=== PATIENT | female | born 1960 | race Caucasian/White ===

== ENCOUNTER 2017-02-13 00:40 | Day surgery (SDC) | payer OTHER ==
[~2017-02-13 00:40] MED LIST: ACEASPCAF; ALBU.083IS IH; ALBU90I INH; ALBU90OI; ALBU90OI6 INH; ALBU90OI61 INH; ALPR.5 PO; ALPR.5CR; AMLO10 PO; AMLO5; AMLO5 PO; ARIP10 PO; ASPI325 PO; Ativan1 MG PO; BUPR150ER PO; BUPR150T2 PO; BUTONI; BUTORPHANOL; CALCARB; CALCARB PO; CALCNI; CARI350; CARI350 PO; CLON.1 PO; CLON1 PO; CLON2; CLON2 PO; CLOP75 PO; CONEST.625; CONEST.625 PO; CONEST1.25; Calcarb 600 W-1 EACH PO; DIGO.125; DIGO.125 PO; DIPATR; DIPATR PO; DOCU100 PO; DULO30 PO; DULO60 PO; ENOX60I SC; ERGO400 PO; ERGO50000 PO; ESCI10; ESCI10 PO; ESCI20; ESCI20 PO; FISH1000 PO; FORTICAL; FURO20; FURO20 PO; FURO80; HYDACE10B PO; HYDACE5 PO; HYDR1TAB94 PO; HYOS.125 SL; Klonopin1 MG PO; LANS30EC; LAVAP17G PO; LEVSOD100; LEVSOD100 PO; LEVSOD50 PO; LIDO5TP TOP; LISI10; LISI20; LISI20 PO; LOVA20 PO; LOVA40 PO; Lopressor 50 mg50 MG PO; MAGOXI400 PO; MEDICAL MARIJUANA; METH10; METH10 PO; METO10; METO10 PO; METO100ER; METO100ER PO; MORP30; Macrobid 100 M100 MG PO; Miacalcin I200 IU/ML; Morphine Sulfat15 MG PO; NITR.4SL SL; Norco 5-325 Ta1 EACH PO; OMEP20ER; OMEP20ER PO; ONDA4ODT MM; OXYACE5T PO; OXYC15ER PO; OXYC5 PO; PANT40 PO; PARO30; POTA10T PO; POTCHL20ER; POTCHL20ER PO; PROACE100 PO; PROM25; PROM25 PO; PROM25S PR; PROM6.25SY PO; Phenergan25 M1 PO; Phenergan25 MG PR; Prinivil5 MG PO; RXHYDACE PO; RXPROMSY PO; SOMA350 MG PO; SUCR1; SUCR1 PO; TRAM50 PO; Toprol Xl PO; VICODIN 5-3001 EACH PO; WARF3; WARF4 PO; WARF5 PO; [UNRECOGNIZED DRUG - OTHER]; [UNRECOGNIZED DRUG - OTHER]; [UNRECOGNIZED DRUG - OTHER]; [UNRECOGNIZED DRUG - OTHER] PO; [UNRECOGNIZED DRUG - REMARK]; [UNRECOGNIZED DRUG - REMARK]
[2017-02-13 09:26] LABS: Hematocrit 30.8 % (33.0-51.0); Hemoglobin 9.3 g/dL (11.5-16.0)
[2017-02-13 09:51] LABS: Albumin, Blood 3.1 g/dL (3.4-5.0); Anion Gap 5 mmol/L (6-16); Blood Urea Nitrogen 15 mg/dL (8-24); Bun/Creatinine Ratio 19.6 (12.0-20.0); CO2, Blood 27 mmol/L (21-32); Calcium, Blood 8.2 mg/dL (8.5-10.1); Chloride, Blood 106 mmol/L (98-108); Creatinine, Blood 0.77 mg/dL (0.40-1.00); Glomerular Filtration Rate >60 (60-); Glucose, Blood 108 mg/dL (70-99); Phosphorus, Blood 2.4 mg/dL (2.5-4.9); Potassium, Blood 4.4 mmol/L (3.5-5.5); Sodium, Blood 138 mmol/L (136-145); Uric Acid, Blood 3.7 mg/dL (2.6-6.0)
[2017-11-18] MEDS ORDERED: ROXICODONE5 MG PO (13:28)
[2017-11-18] MEDS ORDERED: NICOTINE1 EAC1 TOP (13:31)
[2017-11-18] MEDS ORDERED: PROM25 PO (13:31)
[2017-11-18] MEDS ORDERED: PANT40 PO (13:32)
[2017-11-18] MEDS ORDERED: SUCR1 PO (13:33)
== END 2017-02-13 09:08 | disposition home or self-care (01) ==
LOC: ATC 00:40
PROVIDERS: Internal Medicine Nephrology
DX: Z45.2 Encounter for adjustment and management of vascular access device (principal); I73.9 Peripheral vascular disease, unspecified; G89.4 Chronic pain syndrome; F11.21 Opioid dependence, in remission; F17.210 Nicotine dependence, cigarettes, uncomplicated; J44.9 Chronic obstructive pulmonary disease, unspecified; F41.9 Anxiety disorder, unspecified; I12.9 Hypertensive chronic kidney disease with stage 1 through stage 4 chronic kidney disease, or unspecified chronic kidney disease; N18.2 Chronic kidney disease, stage 2 (mild); D75.1 Secondary polycythemia; N25.81 Secondary hyperparathyroidism of renal origin; E55.9 Vitamin D deficiency, unspecified; E78.00 Pure hypercholesterolemia, unspecified; N20.0 Calculus of kidney; R76.9 Abnormal immunological finding in serum, unspecified; R94.5 Abnormal results of liver function studies; R10.9 Unspecified abdominal pain; Z79.01 Long term (current) use of anticoagulants; Z79.899 Other long term (current) drug therapy; Z88.8 Allergy status to other drugs, medicaments and biological substances; Z88.6 Allergy status to analgesic agent
CPT/HCPCS: 36591; 80069; 82306; 84550; 85014; 85018; J1642

== ENCOUNTER 2017-03-14 00:56 | Day surgery (SDC) | payer OTHER ==
[2017-11-18] MEDS ORDERED: ROXICODONE5 MG PO (13:28)
[2017-11-18] MEDS ORDERED: NICOTINE1 EAC1 TOP (13:31)
[2017-11-18] MEDS ORDERED: PROM25 PO (13:31)
[2017-11-18] MEDS ORDERED: PANT40 PO (13:32)
[2017-11-18] MEDS ORDERED: SUCR1 PO (13:33)
== END 2017-03-14 08:50 | disposition home or self-care (01) ==
LOC: ATC 00:56
DX: K91.1 Postgastric surgery syndromes (principal); I10 Essential (primary) hypertension; I73.9 Peripheral vascular disease, unspecified; G89.4 Chronic pain syndrome; F17.210 Nicotine dependence, cigarettes, uncomplicated; J44.9 Chronic obstructive pulmonary disease, unspecified; F41.9 Anxiety disorder, unspecified
CPT/HCPCS: 96523; J1642

== ENCOUNTER 2017-04-08 00:13 | Day surgery (SDC) | payer OTHER ==
[2017-04-08 11:29] LABS: Percent Saturation 4.1 % (15.0-50.0)
[2017-04-08 11:32] LABS: Albumin, Blood 2.7 g/dL (3.4-5.0); Anion Gap 7 mmol/L (6-16); Blood Urea Nitrogen 16 mg/dL (8-24); CO2, Blood 25 mmol/L (21-32); Calcium, Blood 8.2 mg/dL (8.5-10.1); Chloride, Blood 111 mmol/L (98-108); Creatinine, Blood 0.62 mg/dL (0.40-1.00); Glomerular Filtration Rate >60 (60-); Glucose, Blood 103 mg/dL (70-99); Phosphorus, Blood 2.4 mg/dL (2.5-4.9); Potassium, Blood 4.3 mmol/L (3.5-5.5); Sodium, Blood 143 mmol/L (136-145)
[2017-04-08 11:51] LABS: Thyroid Stimulating Hormone 0.714 uIU/mL (0.360-4.800)
[2017-04-15 07:54] LABS: Metanephrine, Free <0.35 nmol/L (0.0-0.49); Normetanephrine, Free <0.55 nmol/L (0.00-0.89)
[2017-11-18] MEDS ORDERED: ROXICODONE5 MG PO (13:28)
[2017-11-18] MEDS ORDERED: NICOTINE1 EAC1 TOP (13:31)
[2017-11-18] MEDS ORDERED: PROM25 PO (13:31)
[2017-11-18] MEDS ORDERED: PANT40 PO (13:32)
[2017-11-18] MEDS ORDERED: SUCR1 PO (13:33)
== END 2017-04-08 10:43 | disposition home or self-care (01) ==
LOC: ATC 00:13
PROVIDERS: Internal Medicine Nephrology
DX: I12.9 Hypertensive chronic kidney disease with stage 1 through stage 4 chronic kidney disease, or unspecified chronic kidney disease (principal); N18.3 Chronic kidney disease, stage 3 (moderate); D63.1 Anemia in chronic kidney disease; N25.81 Secondary hyperparathyroidism of renal origin; R76.9 Abnormal immunological finding in serum, unspecified; R94.5 Abnormal results of liver function studies; D51.8 Other vitamin B12 deficiency anemias; D52.8 Other folate deficiency anemias; K91.1 Postgastric surgery syndromes; I73.9 Peripheral vascular disease, unspecified; F17.210 Nicotine dependence, cigarettes, uncomplicated; E78.5 Hyperlipidemia, unspecified
CPT/HCPCS: 36591; 80069; 82088; 82533; 82607; 82728; 82746; 83540; 83550; 83835; 84244; 84443; 85018; J1642

== ENCOUNTER 2017-04-14 09:38 | Day surgery (SDC) | payer OTHER ==
[2017-04-14 11:43] LABS: Hematocrit 24.7 % (33.0-51.0); Hemoglobin 7.1 g/dL (11.5-16.0)
[2017-11-18] MEDS ORDERED: ROXICODONE5 MG PO (13:28)
[2017-11-18] MEDS ORDERED: PROM25 PO (13:31)
[2017-11-18] MEDS ORDERED: NICOTINE1 EAC1 TOP (13:31)
[2017-11-18] MEDS ORDERED: PANT40 PO (13:32)
[2017-11-18] MEDS ORDERED: SUCR1 PO (13:33)
== END 2017-04-14 16:47 | disposition home or self-care (01) ==
LOC: ATC 09:38
PROVIDERS: Internal Medicine Nephrology
DX: I12.9 Hypertensive chronic kidney disease with stage 1 through stage 4 chronic kidney disease, or unspecified chronic kidney disease (principal); N18.2 Chronic kidney disease, stage 2 (mild); D63.1 Anemia in chronic kidney disease; E78.00 Pure hypercholesterolemia, unspecified; E55.9 Vitamin D deficiency, unspecified
CPT/HCPCS: 36430; 36591; 85014; 85018; 86850; 86870; 86900; 86901; 86902; 86905; 86922; 96374; J1642; J7030; P9016

== ENCOUNTER 2017-04-24 08:39 | Day surgery (SDC) | payer OTHER ==
[2017-11-18] MEDS ORDERED: ROXICODONE5 MG PO (13:28)
[2017-11-18] MEDS ORDERED: NICOTINE1 EAC1 TOP (13:31)
[2017-11-18] MEDS ORDERED: PROM25 PO (13:31)
[2017-11-18] MEDS ORDERED: PANT40 PO (13:32)
[2017-11-18] MEDS ORDERED: SUCR1 PO (13:33)
== END 2017-04-24 09:15 | disposition home or self-care (01) ==
LOC: ATC 08:39
DX: I12.9 Hypertensive chronic kidney disease with stage 1 through stage 4 chronic kidney disease, or unspecified chronic kidney disease (principal); N18.2 Chronic kidney disease, stage 2 (mild); D63.1 Anemia in chronic kidney disease; F17.200 Nicotine dependence, unspecified, uncomplicated; R03.1 Nonspecific low blood-pressure reading; E78.00 Pure hypercholesterolemia, unspecified; E55.9 Vitamin D deficiency, unspecified; M81.0 Age-related osteoporosis without current pathological fracture
CPT/HCPCS: 36591; 85018; J1642

== ENCOUNTER 2017-07-16 00:16 | Day surgery (SDC) | payer OTHER ==
[~2017-07-16 00:16] MED LIST changes: +DULO60
[2017-07-16 10:39] LABS: Albumin, Blood 3.4 g/dL (3.4-5.0); Anion Gap 7 mmol/L (6-16); Blood Urea Nitrogen 19 mg/dL (8-24); Bun/Creatinine Ratio 30.4 (12.0-20.0); CO2, Blood 25 mmol/L (21-32); Calcium, Blood 8.7 mg/dL (8.5-10.1); Chloride, Blood 109 mmol/L (98-108); Creatinine, Blood 0.63 mg/dL (0.40-1.00); Glomerular Filtration Rate >60 (60-); Glucose, Blood 103 mg/dL (70-99); Phosphorus, Blood 2.6 mg/dL (2.5-4.9); Potassium, Blood 4.4 mmol/L (3.5-5.5); Sodium, Blood 141 mmol/L (136-145)
[2017-07-16 10:43] LABS: Percent Saturation 42.3 % (15.0-50.0)
== END 2017-07-16 09:55 | disposition home or self-care (01) ==
LOC: ATC 00:16
PROVIDERS: Internal Medicine Nephrology
DX: I12.9 Hypertensive chronic kidney disease with stage 1 through stage 4 chronic kidney disease, or unspecified chronic kidney disease (principal); N18.2 Chronic kidney disease, stage 2 (mild); D63.1 Anemia in chronic kidney disease; F17.200 Nicotine dependence, unspecified, uncomplicated; R03.1 Nonspecific low blood-pressure reading; E78.00 Pure hypercholesterolemia, unspecified; E55.9 Vitamin D deficiency, unspecified
CPT/HCPCS: 36591; 80069; 82728; 83540; 83550; 85018; J1642

== ENCOUNTER 2017-08-12 00:24 | Day surgery (SDC) | payer OTHER ==
[2017-08-12 09:31] LABS: BASOPHILS ABSOLUTE AUTO 0.01 K/mm3 (0.00-0.23); BASOPHILS PERCENT AUTO 0 % (0-2); EOSINOPHILS ABSOLUTE AUTO 0.16 K/mm3 (0.00-0.68); EOSINOPHILS PERCENT AUTO 2 % (0-6); Hematocrit 33.3 % (33.0-51.0); Hemoglobin 10.9 g/dL (11.5-16.0); IMMATURE GRAN ABSOLUTE AUTO 0.03 K/mm3 (0.00-0.10); IMMATURE GRAN PERCENT AUTO 0 % (0-1); LYMPHOCYTES ABSOLUTE AUTO 1.67 K/mm3 (0.84-5.20); LYMPHOCYTES PERCENT AUTO 23 % (21-46); MONOCYTES ABSOLUTE AUTO 0.37 K/mm3 (0.16-1.47); MONOCYTES PERCENT AUTO 5 % (4-13); Mean Corpuscular HGB 31.6 pg (26.0-34.0); Mean Corpuscular HGB Conc 32.7 g/dL (31.5-36.5); Mean Corpuscular Volume 97 fL (80-100); Mean Platelet Volume 9.3 fL (9.1-12.4); NEUTROPHILS ABSOLUTE AUTO 5.06 K/mm3 (1.96-9.15); NEUTROPHILS PERCENT AUTO 69 % (41-73); Platelet Count 234 K/mm3 (150-400); RDW Coefficient Variation 16.6 % (11.7-14.2); RDW Standard Deviation 58.4 fL (35.1-46.3); Red Blood Cell Count 3.45 M/mm3 (3.80-5.20)
[2017-08-12 10:06] LABS: Percent Saturation 18.8 % (15.0-50.0)
== END 2017-08-12 09:00 | disposition home or self-care (01) ==
LOC: ATC 00:24
PROVIDERS: Internal Medicine Hematology & Oncology
DX: D50.9 Iron deficiency anemia, unspecified (principal); I12.9 Hypertensive chronic kidney disease with stage 1 through stage 4 chronic kidney disease, or unspecified chronic kidney disease; N18.2 Chronic kidney disease, stage 2 (mild); D63.1 Anemia in chronic kidney disease; R03.1 Nonspecific low blood-pressure reading; E55.9 Vitamin D deficiency, unspecified; N20.0 Calculus of kidney; E87.3 Alkalosis; N28.1 Cyst of kidney, acquired; F17.210 Nicotine dependence, cigarettes, uncomplicated
CPT/HCPCS: 82728; 83540; 83550; 85025; J1642

== ENCOUNTER 2017-08-19 00:17 | Day surgery (SDC) | payer OTHER | END 2017-08-19 09:05 | disposition home or self-care (01) | LOC: ATC 00:17 | DX: D50.9 Iron deficiency anemia, unspecified (principal); K91.2 Postsurgical malabsorption, not elsewhere classified; F17.210 Nicotine dependence, cigarettes, uncomplicated; I10 Essential (primary) hypertension; E78.5 Hyperlipidemia, unspecified; E03.9 Hypothyroidism, unspecified; Z85.6 Personal history of leukemia | CPT/HCPCS: 36591; 82607; 82746; J1642 ==

== ENCOUNTER 2017-09-18 00:11 | Day surgery (SDC) | payer OTHER | END 2017-09-18 09:02 | disposition home or self-care (01) | LOC: ATC 00:11 | DX: D50.9 Iron deficiency anemia, unspecified (principal); K91.2 Postsurgical malabsorption, not elsewhere classified; F17.210 Nicotine dependence, cigarettes, uncomplicated | CPT/HCPCS: 96523; J1642 ==

== ENCOUNTER 2017-10-20 00:05 | Day surgery (SDC) | payer OTHER ==
[2017-10-20 09:33] LABS: Albumin, Blood 3.1 g/dL (3.4-5.0); Anion Gap 11 mmol/L (6-16); Blood Urea Nitrogen 20 mg/dL (8-24); Bun/Creatinine Ratio 25.5 (12.0-20.0); CO2, Blood 19 mmol/L (21-32); Calcium, Blood 8.1 mg/dL (8.5-10.1); Chloride, Blood 110 mmol/L (98-108); Creatinine, Blood 0.78 mg/dL (0.40-1.00); Glomerular Filtration Rate >60 (60-); Glucose, Blood 106 mg/dL (70-99); Phosphorus, Blood 2.3 mg/dL (2.5-4.9); Potassium, Blood 4.6 mmol/L (3.5-5.5); Sodium, Blood 140 mmol/L (136-145)
== END 2017-10-20 08:52 | disposition home or self-care (01) ==
LOC: ATC 00:05
PROVIDERS: Internal Medicine Nephrology
DX: D50.9 Iron deficiency anemia, unspecified (principal); K91.2 Postsurgical malabsorption, not elsewhere classified; N18.2 Chronic kidney disease, stage 2 (mild); D63.1 Anemia in chronic kidney disease
CPT/HCPCS: 36591; 80069; 85018; J1642

== ENCOUNTER 2017-10-26 10:22 | Emergency (ER) | payer OTHER ==
[~2017-10-26] VITALS: Ht 157.5 cm; Wt 45.0 kg
[2017-10-26 12:17] LABS: BASOPHILS ABSOLUTE AUTO 0.02 K/mm3 (0.00-0.23); BASOPHILS PERCENT AUTO 0 % (0-2); EOSINOPHILS ABSOLUTE AUTO 0.14 K/mm3 (0.00-0.68); EOSINOPHILS PERCENT AUTO 2 % (0-6); Hematocrit 28.8 % (33.0-51.0); Hemoglobin 9.6 g/dL (11.5-16.0); IMMATURE GRAN ABSOLUTE AUTO 0.02 K/mm3 (0.00-0.10); IMMATURE GRAN PERCENT AUTO 0 % (0-1); LYMPHOCYTES ABSOLUTE AUTO 1.95 K/mm3 (0.84-5.20); LYMPHOCYTES PERCENT AUTO 30 % (21-46); MONOCYTES ABSOLUTE AUTO 0.49 K/mm3 (0.16-1.47); MONOCYTES PERCENT AUTO 7 % (4-13); Mean Corpuscular HGB 32.5 pg (26.0-34.0); Mean Corpuscular HGB Conc 33.3 g/dL (31.5-36.5); Mean Corpuscular Volume 98 fL (80-100); Mean Platelet Volume 8.9 fL (9.1-12.4); NEUTROPHILS PERCENT AUTO 60 % (41-73); Platelet Count 262 K/mm3 (150-400); RDW Coefficient Variation 12.6 % (11.7-14.2); RDW Standard Deviation 45.4 fL (35.1-46.3); Red Blood Cell Count 2.95 M/mm3 (3.80-5.20); White Blood Cell Count 6.62 K/mm3 (4.00-11.30)
[2017-10-26 12:31] LABS: Alanine Aminotransfer (ALT/SGP 19 U/L (12-78); Albumin, Blood 2.7 g/dL (3.4-5.0); Albumin/Globulin Ratio 0.8 (0.8-1.8); Alk Phos 53 U/L (50-136); Anion Gap 7 mmol/L (6-16); Aspartate Aminotrans (AST/SGOT 18 U/L (12-37); Bilirubin, Total 0.2 mg/dL (0.1-1.0); Blood Urea Nitrogen 20 mg/dL (8-24); Bun/Creatinine Ratio 25.8 (12.0-20.0); CO2, Blood 26 mmol/L (21-32); Calcium, Blood 8.3 mg/dL (8.5-10.1); Chloride, Blood 108 mmol/L (98-108); Creatinine, Blood 0.78 mg/dL (0.40-1.00); Globulin, Blood 3.3 g/dL (2.2-4.0); Glomerular Filtration Rate >60 (60-); Glucose, Blood 104 mg/dL (70-99); Potassium, Blood 4.3 mmol/L (3.5-5.5); Sodium, Blood 141 mmol/L (136-145)
[2017-10-26 12:32] LABS: International Normalized Ratio 3.02; Prothrombin Time Results 29.2 Sec (9.7-11.5)
[2017-10-26] MEDS ORDERED: Zofran4 MG PO (14:27)
== END 2017-10-26 14:57 | disposition home or self-care (01) ==
LOC: ER 10:22
PROVIDERS: Emergency Medicine
DX: K27.9 Peptic ulcer, site unspecified, unspecified as acute or chronic, without hemorrhage or perforation (principal); R11.2 Nausea with vomiting, unspecified; F12.90 Cannabis use, unspecified, uncomplicated; Z88.8 Allergy status to other drugs, medicaments and biological substances; Z88.6 Allergy status to analgesic agent; Z79.01 Long term (current) use of anticoagulants; Z79.899 Other long term (current) drug therapy; I10 Essential (primary) hypertension; J44.9 Chronic obstructive pulmonary disease, unspecified; E78.00 Pure hypercholesterolemia, unspecified; D64.9 Anemia, unspecified; F32.9 Major depressive disorder, single episode, unspecified; F41.9 Anxiety disorder, unspecified; F43.10 Post-traumatic stress disorder, unspecified; Z90.49 Acquired absence of other specified parts of digestive tract; F17.210 Nicotine dependence, cigarettes, uncomplicated
CPT/HCPCS: 80053; 85025; 85610; 93005; 93010; 96361; 96374; 96375; 99284-25; C9113; J1200; J1642; J2405; J2550; J7030

== ENCOUNTER 2017-11-11 08:11 | Day surgery (SDC) | payer OTHER ==
[~2017-11-11 08:11] MED LIST changes: -DULO60; +Zofran4 MG PO
[2017-11-11 09:16] LABS: International Normalized Ratio 0.97
[2017-11-18] MEDS ORDERED: ROXICODONE5 MG PO (13:28)
[2017-11-18] MEDS ORDERED: PROM25 PO (13:31)
[2017-11-18] MEDS ORDERED: NICOTINE1 EAC1 TOP (13:31)
[2017-11-18] MEDS ORDERED: PANT40 PO (13:32)
[2017-11-18] MEDS ORDERED: SUCR1 PO (13:33)
== END 2017-11-11 22:41 | disposition home or self-care (01) ==
LOC: ATC 08:11
PROVIDERS: Internal Medicine Gastroenterology
DX: D50.9 Iron deficiency anemia, unspecified (principal); K91.2 Postsurgical malabsorption, not elsewhere classified; Z79.01 Long term (current) use of anticoagulants; Z79.02 Long term (current) use of antithrombotics/antiplatelets
CPT/HCPCS: 36591; 85610; J1642

== ENCOUNTER 2017-11-11 08:59 | Day surgery (SDC) | payer OTHER ==
[~2017-11-11] VITALS: Ht 157.5 cm; Wt 43.1 kg
[~2017-11-11 08:59] MED LIST changes: +DULO60
== END 2017-11-11 12:05 | disposition home or self-care (01) ==
LOC: ORSCSDS 08:59
PROVIDERS: Internal Medicine Gastroenterology
PROC: 0DJ08ZZ Inspection of Upper Intestinal Tract, Via Natural or Artificial Opening Endoscopic (ICD-10-PCS; principal; 2017-11-11 11:15)
DX: D50.9 Iron deficiency anemia, unspecified (principal); Z87.11 Personal history of peptic ulcer disease; R14.0 Abdominal distension (gaseous); E78.5 Hyperlipidemia, unspecified; F31.9 Bipolar disorder, unspecified; F17.210 Nicotine dependence, cigarettes, uncomplicated; Z79.01 Long term (current) use of anticoagulants; Z79.899 Other long term (current) drug therapy
CPT/HCPCS: J1642; J7120

== ENCOUNTER → 2018-01-29 | Outpatient (CLI) | payer OTHER ==
[~2018-01-29] MED LIST changes: -DULO60; +NICOTINE1 EAC1 TOP; +ROXICODONE5 MG PO
[2018-02-06 08:47] LABS: Result SEE LABOUT RESULTS
== END | disposition home or self-care (01) ==
LOC: EDSTATUS 01-28 13:30 → LAB FUT 01-28 13:30 → LAB SHORT 09:30 → LAB SRC 09:30
PROVIDERS: Physician Assistant
DX: F17.200 Nicotine dependence, unspecified, uncomplicated (principal); I42.9 Cardiomyopathy, unspecified
CPT/HCPCS: G0480

== ENCOUNTER 2018-02-12 00:06 | Day surgery (SDC) | payer OTHER ==
[~2018-02-12 00:06] MED LIST changes: +CALCIUM 600 +1 EAC2 PO; +Calcitonin-Sal3.7 ML NS; +FISH OIL 1,0001 EAC1 PO; +LEVO-T50 MCG PO; +MAGOXI400; +PROAIR RESPICL90 MCG INH; +Reclast 55 MG/100 M IV; +Slow Release I160 MG PO
[2018-02-12 09:03] LABS: BASOPHILS ABSOLUTE AUTO 0.02 K/mm3 (0.00-0.23); BASOPHILS PERCENT AUTO 0 % (0-2); EOSINOPHILS PERCENT AUTO 2 % (0-6); Hematocrit 36.3 % (33.0-51.0); Hemoglobin 11.5 g/dL (11.5-16.0); IMMATURE GRAN ABSOLUTE AUTO 0.01 K/mm3 (0.00-0.10); IMMATURE GRAN PERCENT AUTO 0 % (0-1); LYMPHOCYTES ABSOLUTE AUTO 1.13 K/mm3 (0.84-5.20); LYMPHOCYTES PERCENT AUTO 24 % (21-46); MONOCYTES ABSOLUTE AUTO 0.42 K/mm3 (0.16-1.47); MONOCYTES PERCENT AUTO 9 % (4-13); Mean Corpuscular HGB 31.6 pg (26.0-34.0); Mean Corpuscular HGB Conc 31.7 g/dL (31.5-36.5); Mean Corpuscular Volume 100 fL (80-100); Mean Platelet Volume 8.7 fL (9.1-12.4); NEUTROPHILS PERCENT AUTO 64 % (41-73); Platelet Count 232 K/mm3 (150-400); RDW Coefficient Variation 17.7 % (11.7-14.2); RDW Standard Deviation 66.4 fL (35.1-46.3); Red Blood Cell Count 3.64 M/mm3 (3.80-5.20); White Blood Cell Count 4.68 K/mm3 (4.00-11.30)
[2018-02-12 09:26] LABS: Percent Saturation 29.3 % (15.0-50.0)
== END 2018-02-12 08:42 | disposition home or self-care (01) ==
LOC: ATC 00:06
PROVIDERS: Internal Medicine Hematology & Oncology
DX: D50.9 Iron deficiency anemia, unspecified (principal); N18.2 Chronic kidney disease, stage 2 (mild); D63.1 Anemia in chronic kidney disease; K91.0 Vomiting following gastrointestinal surgery; K25.9 Gastric ulcer, unspecified as acute or chronic, without hemorrhage or perforation
CPT/HCPCS: 36591; 82728; 83540; 83550; 85025; J1642

== ENCOUNTER 2018-02-17 10:08 | Day surgery (SDC) | payer OTHER ==
[~2018-02-17] VITALS: Ht 157.5 cm; Wt 45.2 kg
[2018-02-17] MEDS ORDERED: PANT40 PO (11:06)
[2018-02-17] MEDS ORDERED: OXYC5 PO (11:08)
--- NOTE | 2018-02-17 12:17 | NUR ---
02/17/18 1217 Elizabeth Pearson PROCEDURE STOPPED D/T FOOD IN THE STOMACH PER DR CONLEY
== END 2018-02-17 12:39 | disposition home or self-care (01) ==
LOC: ORSCSDS 10:08
PROVIDERS: Internal Medicine Gastroenterology
PROC: 0DJ08ZZ Inspection of Upper Intestinal Tract, Via Natural or Artificial Opening Endoscopic (ICD-10-PCS; principal; 2018-02-17 11:30)
DX: Z87.11 Personal history of peptic ulcer disease (principal); E78.5 Hyperlipidemia, unspecified; F31.9 Bipolar disorder, unspecified; F17.210 Nicotine dependence, cigarettes, uncomplicated; Z79.01 Long term (current) use of anticoagulants; Z79.899 Other long term (current) drug therapy
CPT/HCPCS: J7120

== ENCOUNTER 2018-02-26 08:01 | Observation (INO) | payer OTHER ==
[~2018-02-26] VITALS: Ht 157.5 cm; Wt 48.1 kg
[2018-02-26] MEDS ORDERED: ALPR.5 PO (08:37)
[2018-02-26 08:54] LABS: BASOPHILS ABSOLUTE AUTO 0.02 K/mm3 (0.00-0.23); BASOPHILS PERCENT AUTO 0 % (0-2); EOSINOPHILS ABSOLUTE AUTO 0.08 K/mm3 (0.00-0.68); EOSINOPHILS PERCENT AUTO 1 % (0-6); Hematocrit 37.9 % (33.0-51.0); Hemoglobin 11.7 g/dL (11.5-16.0); IMMATURE GRAN ABSOLUTE AUTO 0.04 K/mm3 (0.00-0.10); IMMATURE GRAN PERCENT AUTO 1 % (0-1); LYMPHOCYTES ABSOLUTE AUTO 0.75 K/mm3 (0.84-5.20); LYMPHOCYTES PERCENT AUTO 9 % (21-46); MONOCYTES ABSOLUTE AUTO 0.56 K/mm3 (0.16-1.47); MONOCYTES PERCENT AUTO 7 % (4-13); Mean Corpuscular HGB 30.6 pg (26.0-34.0); Mean Corpuscular HGB Conc 30.9 g/dL (31.5-36.5); Mean Corpuscular Volume 99 fL (80-100); NEUTROPHILS ABSOLUTE AUTO 6.98 K/mm3 (1.96-9.15); NEUTROPHILS PERCENT AUTO 83 % (41-73); Platelet Count 176 K/mm3 (150-400); RDW Coefficient Variation 16.1 % (11.7-14.2); RDW Standard Deviation 58.9 fL (35.1-46.3); Red Blood Cell Count 3.82 M/mm3 (3.80-5.20); White Blood Cell Count 8.43 K/mm3 (4.00-11.30)
[2018-02-26 09:09] LABS: International Normalized Ratio 0.97
[2018-02-26 09:24] LABS: Alanine Aminotransfer (ALT/SGP 8 U/L (12-78); Albumin, Blood 2.8 g/dL (3.4-5.0); Albumin/Globulin Ratio 0.7 (0.8-1.8); Alk Phos 72 U/L (50-136); Anion Gap 5 mmol/L (6-16); Aspartate Aminotrans (AST/SGOT 12 U/L (12-37); Bilirubin, Total 0.3 mg/dL (0.1-1.0); Blood Urea Nitrogen 12 mg/dL (8-24); Bun/Creatinine Ratio 16.7 (12.0-20.0); CO2, Blood 27 mmol/L (21-32); Calcium, Blood 8.1 mg/dL (8.5-10.1); Chloride, Blood 104 mmol/L (98-108); Creatinine, Blood 0.72 mg/dL (0.40-1.00); Globulin, Blood 3.9 g/dL (2.2-4.0); Glomerular Filtration Rate >60 (60-); Glucose, Blood 137 mg/dL (70-99); Potassium, Blood 4.5 mmol/L (3.5-5.5); Sodium, Blood 136 mmol/L (136-145); Total Protein, Blood 6.7 g/dL (6.4-8.2)
[2018-02-26] MEDS ORDERED: WARF5 PO (15:02)
[2018-02-26] MEDS ORDERED: Percocet 5-3251 EACH PO (15:03)
--- NOTE | 2018-02-26 17:44 | NUR ---
NURSING PCU DAYSHIFT SUMMARY: Assumed care of pt at approx 1415. Arrived from via bed accompanied by staff x2 s/p LLE claudication repair. A/O, fairly cooperative w/care though needs reminders regarding recovery restrictions. R groin site which has no noted bleed, clear dressing CDI. Tele in place, NSR, no c/o CP/pressure, SBP 80's, no noted edema. L/S cta t/o, O2 sat stable on RA, denies dyspnea. Chronic abd pain per pt, significant nausea w/frequent episodes of dry heaving, BT+. PIV x1, s/l. Pt has been educated several times regarding importance of remaining flat and bracing R groin site when straining, verbalizes understanding. Small lump (1inx0.5in) noted below insertion site, unchanged, assessed by CN. Pt denies any current questions/needs, call light in reach, cont to monitor until rpt is given to NOC RN.
--- NOTE | 2018-02-26 22:28 | NUR ---
RIGHT GROIN SITE: SMALL LUMP NOTED UNDER SKIN AT RIGHT GROIN SITE. ASSESSED WITH OFF GOING RN SHABBIR. AT APPROX 2100 IT WAS NOTED THAT THE SMALL LUMP APPEARED TO GROW SLIGHTLY. MANUAL CONTINUOUS PRESSURE WAS HELD AT GROIN SITE FOR 15 MINUTES BY RN. NO FURTHER LUMP FORMATION NOTED AT THIS TIME. CHARGE NURSE MASTER MARTINEZ RN AWARE. WILL CONTINUE TO MONITOR.
--- NOTE | 2018-02-27 03:07 | NUR ---
UPDATE: AT APPROX 0200 PATIENT HAD SEVERAL EPISODES OF DRY HEAVING. LUMP AT RIGHT GROIN SITE APPEARED TO HAVE GROWN SLIGHTLY SINCE BEFORE THE DRY HEAVING. AN ADDITIONAL 15 MINUTES OF MANUAL CONTINUOUS PRESSURE WAS HELD OVER SITE BY RN. NO FURTHER CHANGES NOTED SINCE. PATIENT EDUCATED ON IMPORTANCE OF HOLDING PRESSURE OVER SITE WHILE DRY HEAVING. PATIENT VERBALIZES UNDERSTANDING. WILL CONTINUE TO MONITOR.
[2018-02-27 03:37] LABS: Hematocrit 33.9 % (33.0-51.0); Hemoglobin 10.4 g/dL (11.5-16.0); Mean Corpuscular HGB Conc 30.7 g/dL (31.5-36.5); Mean Corpuscular Volume 101 fL (80-100); Mean Platelet Volume 9.2 fL (9.1-12.4); Platelet Count 168 K/mm3 (150-400); RDW Coefficient Variation 16.4 % (11.7-14.2); RDW Standard Deviation 60.9 fL (35.1-46.3); Red Blood Cell Count 3.35 M/mm3 (3.80-5.20); White Blood Cell Count 5.73 K/mm3 (4.00-11.30)
[2018-02-27 03:52] LABS: International Normalized Ratio 1.08; Prothrombin Time Results 11.4 Sec (9.7-11.5)
[2018-02-27 03:55] LABS: Anion Gap 5 mmol/L (6-16); Blood Urea Nitrogen 12 mg/dL (8-24); Bun/Creatinine Ratio 20.5 (12.0-20.0); CO2, Blood 24 mmol/L (21-32); Calcium, Blood 7.1 mg/dL (8.5-10.1); Chloride, Blood 110 mmol/L (98-108); Creatinine, Blood 0.58 mg/dL (0.40-1.00); Glomerular Filtration Rate >60 (60-); Glucose, Blood 84 mg/dL (70-99); Magnesium, Blood 2.1 mg/dL (1.6-2.4); Potassium, Blood 4.3 mmol/L (3.5-5.5); Sodium, Blood 139 mmol/L (136-145)
--- NOTE | 2018-02-27 07:37 | NUR ---
SHIFT SUMMARY PATIENT PLEASENT AND COOPERATIVE THROUGHOUT THE NIGHT. LUMP AT GROIN SITE STILL PRESENT BUT NO FURTHER CHANGES NOTED THROUGHOUT THIS SHIFT. ASSESSED GROIN SITE WITH ONCOMING RN. PATIENT MEDICATED FOR PAIN AND NAUSEA PER EMAR. FLUIDS RUNNING PER ORDERS. REPORT GIVEN TO ONCOMING RN.
--- NOTE | 2018-02-27 11:57 | NUR ---
Assumed Care: Assume care of pt at approx 0700. VSS. In no apparent sign of distress. Pt is A&Ox4. Calls appropriately. Repositions self. See shift assessment for detailed assessment. Dr. Chengtrate at bedside this AM and plan is to DC pt if cleared by Dr. Wright. Called Dr. Wright and was told that he confirms it is appropriate to send pt home and to have pt follow-up in his office in 1-3 weeks. PT also working with pt and will write their recommendations. Pt currently resting in bed with call light within reach. Denies any further questions, complaints or requests at this time. Will continue to monitor.
[2018-02-27] MEDS ORDERED: ACET325 PO (12:39)
[2018-02-27] MEDS ORDERED: BISA10S PR (12:40)
[2018-02-27] MEDS ORDERED: DOCU100 PO (12:40)
[2018-02-27] MEDS ORDERED: GABA300 PO (12:41)
--- NOTE | 2018-02-27 14:06 | NUR ---
Discharge Pt dc at 1404. Provided with prescriptions, dc education, and all personal belongings. New prescriptions are offered OTC and pt states that she would prefer to pick them up OTC. Provided with written prescription for percocet. Pt states that she does not want to take the gabapentin and does not want for it to be called in to be filled at her pharmacy. VSS. In no apparent sign of distress. Pt independent and walking around in room - dressed herself w/out any issues. Pt not experiencing any nausea at time of DC. Denies any further questions, complaints or requests at time of DC. Pt also provided with femoral access site care information.
== END 2018-02-27 14:19 | disposition home or self-care (01) ==
LOC: ER 08:01 → PCU 08:02 → MEDS 08:02 → PCU 13:15
PROVIDERS: Emergency Medicine; ADMIT Family Medicine
DX: I73.9 Peripheral vascular disease, unspecified (principal); I99.8 Other disorder of circulatory system; E03.9 Hypothyroidism, unspecified; F12.10 Cannabis abuse, uncomplicated; F41.9 Anxiety disorder, unspecified; F32.9 Major depressive disorder, single episode, unspecified; I10 Essential (primary) hypertension; R11.2 Nausea with vomiting, unspecified; J44.9 Chronic obstructive pulmonary disease, unspecified; Z87.891 Personal history of nicotine dependence; Z88.1 Allergy status to other antibiotic agents; Z88.8 Allergy status to other drugs, medicaments and biological substances; Z79.02 Long term (current) use of antithrombotics/antiplatelets; Z79.01 Long term (current) use of anticoagulants; Z79.899 Other long term (current) drug therapy
CPT/HCPCS: 36415; 37220; 75625; 75716; 75774; 76937; 80048; 80053; 83735; 84443; 85025; 85027; 85610; 85730; 93005; 93010; 93926; 96361; 96372; 96374; 96375; 96376; 97162; 97530; 99152; 99153; 99285-25; C1760; C1769; C1887; C1894; C2623; G0378; J1170; J1200; J1644; J1650; J2250; J2405; J2550; J3010; J7030; J7040; P9612; Q9967

== ENCOUNTER 2018-03-12 08:18 | Day surgery (SDC) | payer OTHER ==
[~2018-03-12] VITALS: Ht 157.5 cm; Wt 44.5 kg
[~2018-03-12 08:18] MED LIST changes: +ACET325 PO; +BISA10S PR; +GABA300 PO; +Percocet 5-3251 EACH PO
[2018-03-12] MEDS ORDERED: MAGOXI400 (09:33)
[2018-03-12] MEDS ORDERED: Vitamin D400 UNI1 PO (09:33)
[2018-03-12] MEDS ORDERED: FISH OIL 1,0001 EAC1 PO (09:34)
--- NOTE | 2018-03-12 09:54 | NUR ---
03/12/18 0954 Bolivar,May PT MEDIPORT ACCESS ONE ATTEMPT AND ONE SUCCESSFULL. PT TOLERATED WELL.
--- NOTE | 2018-03-12 10:59 | NUR ---
03/12/18 1059 Rohit Mcgee LATE ENTRY-1020 RN FLUSHED MEDIPORT WITH 5CC NORMAL SALINE AND THEN HEPARIN 5ML 100CC/ML NEEDLE OUT SITE GOOD. LARGE BANDAID APPLIED.
== END 2018-03-12 10:47 | disposition home or self-care (01) ==
LOC: ORSCSDS 08:18
PROVIDERS: Internal Medicine Gastroenterology
PROC: 0DJ08ZZ Inspection of Upper Intestinal Tract, Via Natural or Artificial Opening Endoscopic (ICD-10-PCS; principal; 2018-03-12 09:45)
DX: K25.9 Gastric ulcer, unspecified as acute or chronic, without hemorrhage or perforation (principal); E78.5 Hyperlipidemia, unspecified; K31.84 Gastroparesis; D64.9 Anemia, unspecified; I10 Essential (primary) hypertension; E03.9 Hypothyroidism, unspecified; Z87.891 Personal history of nicotine dependence; Z79.01 Long term (current) use of anticoagulants; Z79.899 Other long term (current) drug therapy
CPT/HCPCS: J1642; J7120

== ENCOUNTER 2018-05-05 10:51 | Inpatient (IN) | payer OTHER ==
[~2018-05-05] VITALS: Ht 157.5 cm; Wt 47.2 kg
[~2018-05-05 10:51] MED LIST changes: +PANT20 PO; -PROAIR RESPICL90 MCG INH; +Vitamin D400 UNI1 PO; +WARF10 PO
[2018-05-05 12:31] LABS: BASOPHILS ABSOLUTE AUTO 0.03 K/mm3 (0.00-0.23); BASOPHILS PERCENT AUTO 1 % (0-2); EOSINOPHILS ABSOLUTE AUTO 0.43 K/mm3 (0.00-0.68); EOSINOPHILS PERCENT AUTO 7 % (0-6); Hematocrit 37.3 % (33.0-51.0); Hemoglobin 11.9 g/dL (11.5-16.0); IMMATURE GRAN ABSOLUTE AUTO 0.02 K/mm3 (0.00-0.10); IMMATURE GRAN PERCENT AUTO 0 % (0-1); LYMPHOCYTES ABSOLUTE AUTO 1.75 K/mm3 (0.84-5.20); LYMPHOCYTES PERCENT AUTO 28 % (21-46); MONOCYTES ABSOLUTE AUTO 0.61 K/mm3 (0.16-1.47); MONOCYTES PERCENT AUTO 10 % (4-13); Mean Corpuscular HGB 31.5 pg (26.0-34.0); Mean Corpuscular HGB Conc 31.9 g/dL (31.5-36.5); Mean Corpuscular Volume 99 fL (80-100); Mean Platelet Volume 9.1 fL (9.1-12.4); NEUTROPHILS ABSOLUTE AUTO 3.52 K/mm3 (1.96-9.15); NEUTROPHILS PERCENT AUTO 55 % (41-73); Platelet Count 250 K/mm3 (150-400); RDW Coefficient Variation 14.2 % (11.7-14.2); RDW Standard Deviation 51.5 fL (35.1-46.3); Red Blood Cell Count 3.78 M/mm3 (3.80-5.20); White Blood Cell Count 6.36 K/mm3 (4.00-11.30)
[2018-05-05 12:50] LABS: International Normalized Ratio 1.76; Prothrombin Time Results 17.7 Sec (9.7-11.5)
[2018-05-05 12:54] LABS: Alanine Aminotransfer (ALT/SGP 49 U/L (12-78); Albumin, Blood 2.9 g/dL (3.4-5.0); Albumin/Globulin Ratio 0.9 (0.8-1.8); Alk Phos 94 U/L (50-136); Anion Gap 5 mmol/L (6-16); Aspartate Aminotrans (AST/SGOT 37 U/L (12-37); Bilirubin, Total 0.3 mg/dL (0.1-1.0); Blood Urea Nitrogen 17 mg/dL (8-24); Bun/Creatinine Ratio 24.2 (12.0-20.0); CO2, Blood 27 mmol/L (21-32); Calcium, Blood 7.9 mg/dL (8.5-10.1); Chloride, Blood 107 mmol/L (98-108); Globulin, Blood 3.3 g/dL (2.2-4.0); Glomerular Filtration Rate >60 (60-); Glucose, Blood 106 mg/dL (70-99); Potassium, Blood 4.4 mmol/L (3.5-5.5); Sodium, Blood 139 mmol/L (136-145); Total Protein, Blood 6.2 g/dL (6.4-8.2); Troponin I <0.015 ng/mL (0.000-0.040)
[2018-05-05] MEDS ORDERED: ALBU90OI61 INH (15:21)
--- NOTE | 2018-05-05 17:12 | NUR ---
Initial Visit: Palliative Care Consult for Symptom Management. Pt is A&Ox4 and reports 8/10 pain in her abdomen and legs. She reports the current regimen is managing her pain. She states when receiving the dilaudid the pain level decreased to a 3/10. She also reports 7/7 nausea and 6/7 anxiety. Engaged in therapeutic conversation regarding symptom management and goals of care. Pt reports that she is of [employer] and would not mind a visit from a kiln setter. She reports that she lives at home with her and has adult children most of which live out of state. Pt reports that she is feeling anxiety due to the nausea and in turn can't keep her anxiety medication down. She reports her goal is to remain NPO for the next 24 hours and states this should help calm her stomach down. She reports she does not want to try any new anti nausea medication until at this time. She reports that she would like to keep the current regimen for the next 24 hours. If nuasea is still unmanaged then she will consider something new. Discussed POLST with Pt and she expresses interest in completing form. Educated Pt on each section of POLST with V/U made. Pt completed POLST and signed. Her wishes are DNR, Limited Treatment, and No Artifical Nutrition by Tube. Pt reports no other concerns at this time. Spoke with Pt's ED nurse Shanda and she reports the Pt may benefit from some pysch/social conseling. No other concerns at this time. Plan: Will monitor Pt for symptom management, obtain hospitalist signature for POLST, obtain order for DNR code status, and place order for kiln setter referral. Recommend referal for pysch couseling upon discharge to help manage anxiety and depression.
--- NOTE | 2018-05-05 18:14 | NUR ---
PT ADMITTED FROM ED TO ROOM 303 AT 1740- VSS- TEMP 99.4- AMBULATED SBA TO BSC, VOIDED. IV CLIMIMIX/LIPID EMULSION RUNNING. PT BEGAN DRY HEAVING SOON SHE GOT BACK INTO BED. REQUESTING DILAUDID AND ZOFRAN RIGHT AWAY. PT IS NPO. WILL OBTAIN BLOOD SUGAR. ORIENTED TO ROOM AND CALL LIGHT AND SAFETY.
[2018-05-06 04:55] LABS: Hematocrit 31.4 % (33.0-51.0); Hemoglobin 10.3 g/dL (11.5-16.0); Mean Corpuscular HGB 33.1 pg (26.0-34.0); Mean Corpuscular HGB Conc 32.8 g/dL (31.5-36.5); Mean Corpuscular Volume 101 fL (80-100); Mean Platelet Volume 8.7 fL (9.1-12.4); Platelet Count 203 K/mm3 (150-400); RDW Coefficient Variation 14.4 % (11.7-14.2); RDW Standard Deviation 53.3 fL (35.1-46.3); Red Blood Cell Count 3.11 M/mm3 (3.80-5.20); White Blood Cell Count 4.87 K/mm3 (4.00-11.30)
[2018-05-06 05:11] LABS: Anion Gap 5 mmol/L (6-16); Blood Urea Nitrogen 17 mg/dL (8-24); Bun/Creatinine Ratio 26.4 (12.0-20.0); CO2, Blood 27 mmol/L (21-32); Calcium, Blood 7.7 mg/dL (8.5-10.1); Chloride, Blood 108 mmol/L (98-108); Creatinine, Blood 0.65 mg/dL (0.40-1.00); Glomerular Filtration Rate >60 (60-); Glucose, Blood 92 mg/dL (70-99); Magnesium, Blood 1.9 mg/dL (1.6-2.4); Phosphorus, Blood 3.4 mg/dL (2.5-4.9); Potassium, Blood 4.5 mmol/L (3.5-5.5); Sodium, Blood 140 mmol/L (136-145); Triglycerides 103 mg/dL (30-160)
[2018-05-06 05:12] LABS: International Normalized Ratio 1.81; Prothrombin Time Results 18.2 Sec (9.7-11.5)
--- NOTE | 2018-05-06 06:14 | NUR ---
SHIFT SUMMARY: PT CONT TO DRY HEAVE, BUT NO EPISODES OF ACTIVE VOMITING. TREATED c IV PHENERGAN AND ZOFRAN. PT REPORTS ZOFRAN IS INEFFECTIVE. DILAUDID ADMINISTERED Q4H PER PT REQUESTS. PT REPORTS CRAMPING TO LLQ. BOWEL TONES NORMOACTIVE X 4, NO DIARRHEA. NPO FOR BOWEL REST. LS CLEAR, RESP E/U ON RA. MEDIPORT ACCESSED IN ED; CLINIMIX RUNNING @ 60 ML/HR, LIPID EMULSIONS INFUSION FINISHED THIS AM; COMPLETED 1L OF LR THIS AM. CBG MONITORED Q6H; VALUES OF 96 AND 101. WILL CONT TO MONITOR AND PROVIDE CARE UNTIL PRESUMED BY ONCOMING RN.
--- NOTE | 2018-05-06 17:11 | NUR ---
Mary was quite talkative and had numerous ealth complaints she says are chronic. Her primary issue appears to be pain management as she has "constant pain" in her legs. She told me her illness history which was extensive. Her is a good support, but he has chronic health problems as well. When I asked her what she was hoping for, she states "just a little relief." When asked to clarify, she admitted this was physical, but also emotional pain. We spoke at length about her life and I provided elementary school counselor and comfort. She appeared to enjoy being heard and affirmed. We prayed together for releif and guidence. Mary would benefit from on-going emotional elementary school counselor. I will remain available.
--- NOTE | 2018-05-06 17:16 | NUR ---
Pt visit this afternoon. Pt states that her dry heaves have calmed down but is still experiencing a little nausea but is managable. Pt also reports her anxiety has improved. Pt reports that she is going to attempt a clear liquid diet this eveing. Pt reports current regimen is managing symptoms and has no concerns at this time. Spoke with Pt's nurse Alissa and she reports the Pt's nausea and anxiety are currently managed. Alissa reports no concerns at this time. Will remain available.
--- NOTE | 2018-05-06 18:49 | NUR ---
SHIFT SUMMNARY PT UP TO BEDSIDE COMMODE SEVERAL TIMES. REQUESTING MEDS FREQUENTLY AND REMINDED OF WHEN THEY ARE AVAILABLE. DRY HEAVES STOPPED APPROX NOONTIME. TOLERATING SIPS OF YULISSA MIST AND CALLED MD FOR ADVANCE DIET TOLERATED.
[2018-05-07 04:59] LABS: Anion Gap 5 mmol/L (6-16); Blood Urea Nitrogen 19 mg/dL (8-24); Bun/Creatinine Ratio 30.2 (12.0-20.0); CO2, Blood 30 mmol/L (21-32); Chloride, Blood 107 mmol/L (98-108); Creatinine, Blood 0.63 mg/dL (0.40-1.00); Glomerular Filtration Rate >60 (60-); Glucose, Blood 101 mg/dL (70-99); Magnesium, Blood 1.9 mg/dL (1.6-2.4); Potassium, Blood 4.1 mmol/L (3.5-5.5); Sodium, Blood 142 mmol/L (136-145)
--- NOTE | 2018-05-07 06:15 | NUR ---
SHIFT SUMMARY A/O INDEPENDENT TO BSC. C/O PAIN IN ABD AND L FOOT AND MEDICATED PER EMAR. C/O NAUSEA BUT NO HEAVES. MEDICATED FOR NAUSEA X2. SHE WAS ABLE TO SLEEP ON AND OFF T/O NOC. CALL LIGHT IN REACH
[2018-05-07 12:46] LABS: International Normalized Ratio 1.27; Prothrombin Time Results 13.2 Sec (9.7-11.5)
--- NOTE | 2018-05-07 18:17 | NUR ---
SHIFT SUMMARY PT TEARFUL THIS MORNING AFTER SPEAKING WITH HER ABOUT CHANGING HER PAIN MEDS TO ORAL. STATED SHE FELT ANXIOUS ABOUT CHANGES AND FEAR THE PAIN WOULD GET WORSE AGAIN. DISCUSSED CHANGING HER ANXIETY MEDS BACK TO WHAT SHE NORMALLY TAKES AT HOME AND SHE WAS AGREEABLE AND LESS TEARFUL AFTER THAT. REQUESTING ANY MED SHE CAN GET AT THE TIME THEY ARE DUE OR 10 MINUTES BEFORE. USING FWW TO BATHROOM AFTER SEEING P.T.
[2018-05-08 05:22] LABS: International Normalized Ratio 1.38; Prothrombin Time Results 14.2 Sec (9.7-11.5)
[2018-05-08 05:33] LABS: Anion Gap 6 mmol/L (6-16); Blood Urea Nitrogen 24 mg/dL (8-24); Bun/Creatinine Ratio 37.2 (12.0-20.0); CO2, Blood 28 mmol/L (21-32); Calcium, Blood 8.4 mg/dL (8.5-10.1); Chloride, Blood 107 mmol/L (98-108); Creatinine, Blood 0.65 mg/dL (0.40-1.00); Glomerular Filtration Rate >60 (60-); Glucose, Blood 102 mg/dL (70-99); Phosphorus, Blood 4.3 mg/dL (2.5-4.9); Potassium, Blood 4.2 mmol/L (3.5-5.5); Sodium, Blood 141 mmol/L (136-145)
--- NOTE | 2018-05-08 06:08 | NUR ---
SHIFT SUMMARY PT A/O. C/O BEING ANXIOUS AND ANXIOUS ABOUT STOPPING THE IV PAIN MEDS OR SWITCHING TO ORAL. C/O NAUSEA AND PAIN T/O NIGHT AND MEDICATED PER EMAR T/O NOC. NO DRY HEAVING. PEDRO ANDRADE TO BA. SHE WAS ABLE TO SLEEP ON AND OFF T/O NOC. CALL LIGHT IN REACH.
--- NOTE | 2018-05-08 14:11 | NUR ---
DISHCARGE MEDIPORT FLUSHED WITH 20ML NS AND 500 UNITS/5ML HEPARIN AND THEN DEACCESSED WITHOUT DIFFICULTY. PT TOLERATED WELL. DISCHARGE INSTRUCTIONS, MEDICATION LIST AND FOLLOW UP APPOINTMENTS REVIEWED WITH PT. QUESTIONS/CONCERNS ANSWERED. PT VERBALLY INDICATED UNDERSTANDING OF ALL INSTRUCTIONS RECEIVED. PT ESCORTED OUT VIA W/C BY ORE TRIMMER.
== END 2018-05-08 14:11 | disposition home or self-care (01) | DRG 897 ==
LOC: ER 10:51 → ERHOLD 15:02 → MEDS 17:40 → ENPENDDIS 05-08 11:00 → MEDS 05-08 14:11
PROVIDERS: Emergency Medicine; Pharmacist; ADMIT Internal Medicine
DX: F12.288 Cannabis dependence with other cannabis-induced disorder (principal); I42.9 Cardiomyopathy, unspecified; E03.9 Hypothyroidism, unspecified; F11.10 Opioid abuse, uncomplicated; F43.10 Post-traumatic stress disorder, unspecified; I10 Essential (primary) hypertension; I73.9 Peripheral vascular disease, unspecified; Z79.01 Long term (current) use of anticoagulants; G89.29 Other chronic pain; F41.9 Anxiety disorder, unspecified; F32.9 Major depressive disorder, single episode, unspecified; J44.9 Chronic obstructive pulmonary disease, unspecified; Z98.84 Bariatric surgery status; Z87.891 Personal history of nicotine dependence
CPT/HCPCS: 71046; 74018; 80048; 80053; 82947; 83690; 83735; 83880; 84100; 84443; 84478; 84484; 85025; 85027; 85610; 93005; 93010; 96361; 96365; 96375; 96376; 97110; 97116; 97162; 99285-25; C9113; G0378; J1170; J1642; J2060; J2405; J2550; J7120

== ENCOUNTER 2018-05-14 02:31 | Emergency (ER) | payer OTHER ==
[~2018-05-14] VITALS: Ht 157.5 cm; Wt 49.0 kg
[2018-05-14 04:18] LABS: BASOPHILS ABSOLUTE AUTO 0.05 K/mm3 (0.00-0.23); BASOPHILS PERCENT AUTO 0 % (0-2); EOSINOPHILS ABSOLUTE AUTO 0.04 K/mm3 (0.00-0.68); EOSINOPHILS PERCENT AUTO 0 % (0-6); Hematocrit 36.8 % (33.0-51.0); IMMATURE GRAN ABSOLUTE AUTO 0.07 K/mm3 (0.00-0.10); IMMATURE GRAN PERCENT AUTO 1 % (0-1); LYMPHOCYTES ABSOLUTE AUTO 1.17 K/mm3 (0.84-5.20); LYMPHOCYTES PERCENT AUTO 10 % (21-46); MONOCYTES ABSOLUTE AUTO 0.51 K/mm3 (0.16-1.47); MONOCYTES PERCENT AUTO 4 % (4-13); Mean Corpuscular HGB 32.3 pg (26.0-34.0); Mean Corpuscular HGB Conc 32.6 g/dL (31.5-36.5); Mean Corpuscular Volume 99 fL (80-100); Mean Platelet Volume 8.8 fL (9.1-12.4); NEUTROPHILS ABSOLUTE AUTO 9.66 K/mm3 (1.96-9.15); NEUTROPHILS PERCENT AUTO 84 % (41-73); Platelet Count 297 K/mm3 (150-400); RDW Coefficient Variation 13.7 % (11.7-14.2); RDW Standard Deviation 50.4 fL (35.1-46.3); Red Blood Cell Count 3.72 M/mm3 (3.80-5.20)
[2018-05-14 04:37] LABS: Alanine Aminotransfer (ALT/SGP 21 U/L (12-78); Albumin, Blood 3.2 g/dL (3.4-5.0); Alk Phos 58 U/L (50-136); Anion Gap 6 mmol/L (6-16); Aspartate Aminotrans (AST/SGOT 15 U/L (12-37); Bilirubin, Total 0.3 mg/dL (0.1-1.0); Blood Urea Nitrogen 17 mg/dL (8-24); Bun/Creatinine Ratio 23.4 (12.0-20.0); CO2, Blood 24 mmol/L (21-32); Calcium, Blood 8.2 mg/dL (8.5-10.1); Chloride, Blood 114 mmol/L (98-108); Creatinine, Blood 0.73 mg/dL (0.40-1.00); Globulin, Blood 3.3 g/dL (2.2-4.0); Glomerular Filtration Rate >60 (60-); Glucose, Blood 123 mg/dL (70-99); Sodium, Blood 144 mmol/L (136-145); Total Protein, Blood 6.5 g/dL (6.4-8.2)
== END 2018-05-14 06:31 | disposition home or self-care (01) ==
LOC: ER 02:31
PROVIDERS: Emergency Medicine
DX: R11.2 Nausea with vomiting, unspecified (principal); F12.988 Cannabis use, unspecified with other cannabis-induced disorder; Z88.6 Allergy status to analgesic agent; Z88.8 Allergy status to other drugs, medicaments and biological substances; Z79.899 Other long term (current) drug therapy; Z79.01 Long term (current) use of anticoagulants; E03.9 Hypothyroidism, unspecified; I10 Essential (primary) hypertension; F41.9 Anxiety disorder, unspecified; F43.10 Post-traumatic stress disorder, unspecified; F32.9 Major depressive disorder, single episode, unspecified; J44.9 Chronic obstructive pulmonary disease, unspecified; Z87.891 Personal history of nicotine dependence
CPT/HCPCS: 80053; 83690; 85025; 96361; 96374; 96375; 99284-25; J1200; J1642; J2550; J7030

== ENCOUNTER 2018-06-08 13:19 | Observation (INO) | payer OTHER ==
[~2018-06-08] VITALS: Ht 157.5 cm; Wt 49.0 kg
[2018-06-08 14:19] LABS: BASOPHILS ABSOLUTE AUTO 0.05 K/mm3 (0.00-0.23); BASOPHILS PERCENT AUTO 0 % (0-2); EOSINOPHILS ABSOLUTE AUTO 0.33 K/mm3 (0.00-0.68); EOSINOPHILS PERCENT AUTO 2 % (0-6); Hematocrit 51.7 % (33.0-51.0); Hemoglobin 16.5 g/dL (11.5-16.0); IMMATURE GRAN ABSOLUTE AUTO 0.13 K/mm3 (0.00-0.10); IMMATURE GRAN PERCENT AUTO 1 % (0-1); LYMPHOCYTES ABSOLUTE AUTO 6.46 K/mm3 (0.84-5.20); LYMPHOCYTES PERCENT AUTO 45 % (21-46); MONOCYTES ABSOLUTE AUTO 0.86 K/mm3 (0.16-1.47); MONOCYTES PERCENT AUTO 6 % (4-13); Mean Corpuscular HGB 31.4 pg (26.0-34.0); Mean Corpuscular HGB Conc 31.9 g/dL (31.5-36.5); Mean Corpuscular Volume 98 fL (80-100); Mean Platelet Volume 8.8 fL (9.1-12.4); NEUTROPHILS ABSOLUTE AUTO 6.54 K/mm3 (1.96-9.15); NEUTROPHILS PERCENT AUTO 46 % (41-73); Platelet Count 514 K/mm3 (150-400); RDW Coefficient Variation 13.7 % (11.7-14.2); RDW Standard Deviation 50.4 fL (35.1-46.3); Red Blood Cell Count 5.26 M/mm3 (3.80-5.20); White Blood Cell Count 14.37 K/mm3 (4.00-11.30)
[2018-06-08 14:26] LABS: Alanine Aminotransfer (ALT/SGP 21 U/L (12-78); Albumin, Blood 2.6 g/dL (3.4-5.0); Albumin/Globulin Ratio 0.9 (0.8-1.8); Alk Phos 53 U/L (50-136); Anion Gap 12 mmol/L (6-16); Aspartate Aminotrans (AST/SGOT 20 U/L (12-37); Bilirubin, Total 0.2 mg/dL (0.1-1.0); Blood Urea Nitrogen 18 mg/dL (8-24); Bun/Creatinine Ratio 22.1 (12.0-20.0); CO2, Blood 17 mmol/L (21-32); Calcium, Blood 7.5 mg/dL (8.5-10.1); Chloride, Blood 114 mmol/L (98-108); Creatinine, Blood 0.82 mg/dL (0.40-1.00); Globulin, Blood 2.9 g/dL (2.2-4.0); Glomerular Filtration Rate >60 (60-); Glucose, Blood 228 mg/dL (70-99); Potassium, Blood 3.3 mmol/L (3.5-5.5); Sodium, Blood 143 mmol/L (136-145); Total Protein, Blood 5.5 g/dL (6.4-8.2); Troponin I 0.052 ng/mL (0.000-0.040)
[2018-06-08 16:25] LABS: International Normalized Ratio 3.06; Prothrombin Time Results 29.3 Sec (9.7-11.5)
[2018-06-08] MEDS ORDERED: WARF10 PO (16:55)
[2018-06-09 05:36] LABS: Hematocrit 31.6 % (33.0-51.0); Hemoglobin 10.4 g/dL (11.5-16.0); Mean Corpuscular HGB Conc 32.9 g/dL (31.5-36.5); Mean Corpuscular Volume 97 fL (80-100); Mean Platelet Volume 8.6 fL (9.1-12.4); Platelet Count 261 K/mm3 (150-400); RDW Coefficient Variation 13.8 % (11.7-14.2); RDW Standard Deviation 49.3 fL (35.1-46.3); Red Blood Cell Count 3.25 M/mm3 (3.80-5.20); White Blood Cell Count 15.76 K/mm3 (4.00-11.30)
--- NOTE | 2018-06-09 05:37 | NUR ---
SHIFT SUMMARY PT ADMITTED FOR ELEVATED TROPONIN AFTER HAVING A REACTION TO AN IRON TRANSFUSION RECEIVED AT [facility]. ALERT AND ORIENTED, USES BSC PER SELF IN ROOM. MEDIPORT ACCESSED RIGHT CHEST AND IVF'S INFUSING AT 75ML/HR. PT C/O NAUSEA AND PAIN DURING THE NIGHT AND MEDICATED FOR BOTH, SEE EMAR. PT STATES SHE IS FEELING BETTER THIS AM BECAUSE SHE WAS ABLE TO SLEEP DURING THE NIGHT. TELEMETRY INTACT AND SHOWS NSR. WILL CONTINUE TO MONITOR.
[2018-06-09 05:48] LABS: Anion Gap 6 mmol/L (6-16); Blood Urea Nitrogen 12 mg/dL (8-24); Bun/Creatinine Ratio 15.9 (12.0-20.0); CO2, Blood 22 mmol/L (21-32); Chloride, Blood 114 mmol/L (98-108); Creatinine, Blood 0.76 mg/dL (0.40-1.00); Glomerular Filtration Rate >60 (60-); Glucose, Blood 118 mg/dL (70-99); Potassium, Blood 4.5 mmol/L (3.5-5.5); Sodium, Blood 142 mmol/L (136-145)
[2018-06-09 05:57] LABS: Prothrombin Time Results 38.9 Sec (9.7-11.5)
[2018-06-09 06:11] LABS: International Normalized Ratio 4.18
--- NOTE | 2018-06-09 06:18 | NUR ---
HOSPITALIST NOTIFIED OF CRITICAL INR AND ALSO OF ELEVATED TROPONIN.
--- NOTE | 2018-06-09 16:17 | NUR ---
PATIENT DISCHARGED WITH HER . AMBULATED SELF OUT OF FACILITY. NO ACUTE ISSUES NOTED. CHRONIC PAIN CONTINUE TO BE NOTED.
== END 2018-06-09 15:41 | disposition home or self-care (01) ==
LOC: ER 13:19 → MEDS 16:25 → ENPENDDIS 06-09 13:29 → MEDS 06-09 15:41
PROVIDERS: Emergency Medicine; ADMIT Internal Medicine
DX: R11.2 Nausea with vomiting, unspecified (principal); R07.9 Chest pain, unspecified; R77.8 Other specified abnormalities of plasma proteins; T45.4X5A Adverse effect of iron and its compounds, initial encounter; F12.988 Cannabis use, unspecified with other cannabis-induced disorder; I10 Essential (primary) hypertension; E03.9 Hypothyroidism, unspecified; D50.9 Iron deficiency anemia, unspecified; I73.9 Peripheral vascular disease, unspecified; Z79.01 Long term (current) use of anticoagulants; Z87.891 Personal history of nicotine dependence; Z88.8 Allergy status to other drugs, medicaments and biological substances; Z88.6 Allergy status to analgesic agent; Z79.899 Other long term (current) drug therapy; Z79.02 Long term (current) use of antithrombotics/antiplatelets
CPT/HCPCS: 71045; 80048; 80053; 83690; 84484; 85025; 85027; 85610; 93005; 93010; 94760; 96361; 96365; 96375; 96376; 99285-25; C9113; G0378; J1170; J1642; J2405; J2765; J3480; J7030

== ENCOUNTER 2018-06-17 14:06 | Inpatient (IN) | payer OTHER ==
[~2018-06-17] VITALS: Ht 167.6 cm; Wt 52.7 kg
[2018-06-17 14:31] LABS: BASOPHILS ABSOLUTE AUTO 0.06 K/mm3 (0.00-0.23); BASOPHILS PERCENT AUTO 0 % (0-2); EOSINOPHILS ABSOLUTE AUTO 0.34 K/mm3 (0.00-0.68); EOSINOPHILS PERCENT AUTO 2 % (0-6); Hematocrit 49.3 % (33.0-51.0); IMMATURE GRAN PERCENT AUTO 1 % (0-1); LYMPHOCYTES ABSOLUTE AUTO 5.57 K/mm3 (0.84-5.20); LYMPHOCYTES PERCENT AUTO 29 % (21-46); MONOCYTES ABSOLUTE AUTO 1.32 K/mm3 (0.16-1.47); MONOCYTES PERCENT AUTO 7 % (4-13); Mean Corpuscular HGB 32.4 pg (26.0-34.0); Mean Corpuscular HGB Conc 32.5 g/dL (31.5-36.5); Mean Platelet Volume 8.7 fL (9.1-12.4); NEUTROPHILS ABSOLUTE AUTO 11.53 K/mm3 (1.96-9.15); NEUTROPHILS PERCENT AUTO 61 % (41-73); Platelet Count 446 K/mm3 (150-400); RDW Coefficient Variation 14.6 % (11.7-14.2); RDW Standard Deviation 53.6 fL (35.1-46.3); Red Blood Cell Count 4.94 M/mm3 (3.80-5.20); White Blood Cell Count 19.02 K/mm3 (4.00-11.30)
[2018-06-17 14:33] LABS: Mean Corpuscular Volume 100 fL (80-100)
[2018-06-17 14:54] LABS: Alanine Aminotransfer (ALT/SGP 16 U/L (12-78); Albumin, Blood 2.5 g/dL (3.4-5.0); Albumin/Globulin Ratio 0.9 (0.8-1.8); Alk Phos 58 U/L (50-136); Anion Gap 9 mmol/L (6-16); Aspartate Aminotrans (AST/SGOT 17 U/L (12-37); Bilirubin, Total 0.1 mg/dL (0.1-1.0); Blood Urea Nitrogen 23 mg/dL (8-24); Bun/Creatinine Ratio 28.5 (12.0-20.0); CO2, Blood 18 mmol/L (21-32); Calcium, Blood 7.1 mg/dL (8.5-10.1); Chloride, Blood 114 mmol/L (98-108); Creatinine, Blood 0.81 mg/dL (0.40-1.00); Globulin, Blood 2.9 g/dL (2.2-4.0); Glomerular Filtration Rate >60 (60-); Glucose, Blood 194 mg/dL (70-99); Potassium, Blood 3.8 mmol/L (3.5-5.5); Sodium, Blood 141 mmol/L (136-145); Total Protein, Blood 5.4 g/dL (6.4-8.2); Troponin I <0.015 ng/mL (0.000-0.040)
[2018-06-17 15:55] LABS: International Normalized Ratio 3.14
[2018-06-17] MEDS ORDERED: PROM25 PO (16:10)
[2018-06-17] MEDS ORDERED: CLON1 PO (16:11)
[2018-06-17] MEDS ORDERED: CLON.1 PO (16:11)
[2018-06-17] MEDS ORDERED: LISI20 PO (16:11)
[2018-06-17] MEDS ORDERED: DULO60 PO (16:11)
--- NOTE | 2018-06-17 19:36 | NUR ---
SHIFT SUMMARY PATIENT ARRIVED TO UNIT AT 1830, A&O X4. SBA. PATIENT NPO. RN ORIENTED PATIENT TO ROOM. NO ACUTE CHANGES. VSS. REPORT GIVEN TO CERTIFIED PERFORMANCE TECHNOLOGIST RN.
--- NOTE | 2018-06-17 20:58 | NUR ---
MEDIPORT WAS ACCESSED AT [facility] AROUND NOON TODAY. SEE ASSESSMENT IV AND DRESSING INTACT.
--- NOTE | 2018-06-17 22:17 | NUR ---
DR Newton updated on PT's polst stated allergy to fentanyl and requests for dilaudid and phenergan. Full code Dc and DNR status per PT request. Fent. dc dilaudid rx no phenergan. IV zofran given. PT says Spouse had cdiff 2 weeks ago and she has diarrhea x 3 days. no stool specimen order recieved. Reviewed home med list. discussed npo status.
[2018-06-17 23:42] LABS: Source, Urine Clean Catch
[2018-06-17 23:45] LABS: Bilirubin, Urine Neg (Neg); Blood, Urine 2+ (Neg); Glucose Qualitative, Urine Neg (Neg); Ketones, Urine Neg (Neg); Leukocyte Esterase, Urine Neg (Neg); Nitrite, Urine Neg (Neg); Protein, Urine Neg (Neg); Urobilinogen, Urine NORM (Normal)
[2018-06-18 00:14] LABS: Appearance, Urine Clear (Clear); Bacteria Rare /hpf; Color, Urine Yellow (P-Yellow); Red Blood Cells, Urine Rare /hpf (0-2); Squamous Epithelial Cells Few /hpf (Few); White Blood Cells, Urine Not Seen /hpf (0-5)
[2018-06-18 05:15] LABS: BASOPHILS ABSOLUTE AUTO 0.02 K/mm3 (0.00-0.23); BASOPHILS PERCENT AUTO 0 % (0-2); EOSINOPHILS PERCENT AUTO 0 % (0-6); Hematocrit 30.8 % (33.0-51.0); Hemoglobin 10.2 g/dL (11.5-16.0); IMMATURE GRAN PERCENT AUTO 1 % (0-1); LYMPHOCYTES ABSOLUTE AUTO 0.75 K/mm3 (0.84-5.20); LYMPHOCYTES PERCENT AUTO 5 % (21-46); MONOCYTES ABSOLUTE AUTO 0.14 K/mm3 (0.16-1.47); MONOCYTES PERCENT AUTO 1 % (4-13); Mean Corpuscular HGB Conc 33.1 g/dL (31.5-36.5); Mean Platelet Volume 8.8 fL (9.1-12.4); NEUTROPHILS ABSOLUTE AUTO 14.94 K/mm3 (1.96-9.15); NEUTROPHILS PERCENT AUTO 94 % (41-73); Platelet Count 203 K/mm3 (150-400); RDW Coefficient Variation 14.5 % (11.7-14.2); RDW Standard Deviation 50.9 fL (35.1-46.3); Red Blood Cell Count 3.19 M/mm3 (3.80-5.20); White Blood Cell Count 15.95 K/mm3 (4.00-11.30)
[2018-06-18 05:20] LABS: Mean Corpuscular Volume 97 fL (80-100)
[2018-06-18 05:31] LABS: International Normalized Ratio 3.28; Prothrombin Time Results 31.2 Sec (9.7-11.5)
[2018-06-18 05:43] LABS: Anion Gap 6 mmol/L (6-16); Blood Urea Nitrogen 17 mg/dL (8-24); Bun/Creatinine Ratio 23.4 (12.0-20.0); CHOL/HDL RATIO 2.8; CO2, Blood 21 mmol/L (21-32); Calcium, Blood 7.1 mg/dL (8.5-10.1); Chloride, Blood 112 mmol/L (98-108); Cholesterol 161 mg/dL (50-200); Creatinine, Blood 0.73 mg/dL (0.40-1.00); Glomerular Filtration Rate >60 (60-); Glucose, Blood 118 mg/dL (70-99); HDL Cholesterol 57 mg/dL (>39); LDL/HDL RATIO 1.3; Low Density Lipoprotein Chol 75 mg/dL (0-110); Potassium, Blood 4.3 mmol/L (3.5-5.5); Sodium, Blood 139 mmol/L (136-145); Triglycerides 143 mg/dL (30-160); Very Low Density Lipoprot Chol 28 mg/dL (6-32)
--- NOTE | 2018-06-18 08:16 | NUR ---
57 year old Female with multiple medical problems admitted after having reaction during iron infusion at [facility]. the PT had simular reaction last Friday when recieving iron infusion at [facility]. She has Spouse who has cdiff during last 2 weeks and she reports she had profuse watery stools at home 3 days. She was incontinent of stool in ER but none since admission. she declined diet and has nausea with dry heaves. severe abd pain upper epigastic medicated q 2 hours with iv dilaudid with mild helpful effect. mediport is accessed and labs drawn without difficulty. recieved 2 l lactated ringers now saline locked.
--- NOTE | 2018-06-18 18:53 | NUR ---
SHIFT SUMMARY JAIDA WAS NAUSEOUS AND PAINFUL THIS SHIFT. RECEIVED IV DILAUDID AND IV ZOFRAN FOR NAUSEA CONTROL. PAIN IS IN ABDOMEN. VERY POOR PO INTAKE TODAY. ORIENTED TO ALL QUESTIONS, BUT FLIGHTS OF IDEAS, UNABLE TO STAY ON TRACK WITH SERIES OF QUESTIONS. SOME TACHYCARDIA TODAY. MEDIPORT HEP LOCKED. NO BMS THIS SHIFT. INDEPDNENT IN ROOM. [facility]
--- NOTE | 2018-06-19 06:19 | NUR ---
pt continues with co abd pain and recieved 1 mg iv dilaudid approx Q 3 .5 hours. On scheduled reglan and solumedrol. PRN zofran given with helpful effect. Toleraing gen diet less than 50%. Pt has home health PT. She takes coumadin dose held yearterday due to elevated INR. Pt has implanted mediport and Port was flushed with heparin 4 times after saline. Bilat ue purpura worsened. also takes plavix. no other s/sx of bleeding. no diarrhea.
[2018-06-19 06:28] LABS: Anion Gap 6 mmol/L (6-16); Blood Urea Nitrogen 16 mg/dL (8-24); Bun/Creatinine Ratio 21.3 (12.0-20.0); CO2, Blood 26 mmol/L (21-32); Chloride, Blood 110 mmol/L (98-108); Creatinine, Blood 0.75 mg/dL (0.40-1.00); Glomerular Filtration Rate >60 (60-); Glucose, Blood 138 mg/dL (70-99); Potassium, Blood 4.1 mmol/L (3.5-5.5); Sodium, Blood 142 mmol/L (136-145)
[2018-06-19 06:44] LABS: International Normalized Ratio 3.57; Prothrombin Time Results 33.7 Sec (9.7-11.5)
--- NOTE | 2018-06-19 09:27 | NUR ---
NOTIFIED DR. BARON PT REPORTING SEVERE PAIN AND ONLY HAS TYLENOL ORDERED. DR. BARON REPORTS PT PLANNING ON D/C THIS AFTERNOON AND TO ORDER ONE TIME DOSE OF 5MG OXYCODONE. NO OTHER NEW ORDERS AT THIS TIME.
--- NOTE | 2018-06-19 12:46 | NUR ---
NOTIFIED DR. BARON PT'S PT 33.[address] BARON SAID OK TO [facility] WITH 500 UNIT HEPARIN PER EMAR. NO NEW ORDERS AT THIS TIME.
--- NOTE | 2018-06-19 13:30 | NUR ---
PT D/C VIA AMBULATION WITH SIGNIFICANT OTHER AT 1325.
== END 2018-06-19 13:24 | disposition home or self-care (01) | DRG 915 ==
LOC: ER 14:06 → MEDS 14:07
PROVIDERS: Emergency Medicine; ADMIT Hospitalist
DX: T88.6XXA Anaphylactic reaction due to adverse effect of correct drug or medicament properly administered, initial encounter (principal); K85.90 Acute pancreatitis without necrosis or infection, unspecified; K91.2 Postsurgical malabsorption, not elsewhere classified; E87.2 Acidosis; I42.9 Cardiomyopathy, unspecified; T45.4X5A Adverse effect of iron and its compounds, initial encounter; I73.9 Peripheral vascular disease, unspecified; D50.9 Iron deficiency anemia, unspecified; I10 Essential (primary) hypertension; E03.9 Hypothyroidism, unspecified; F43.10 Post-traumatic stress disorder, unspecified; Z98.84 Bariatric surgery status; Z87.891 Personal history of nicotine dependence; Z79.01 Long term (current) use of anticoagulants; D72.829 Elevated white blood cell count, unspecified; Z86.718 Personal history of other venous thrombosis and embolism; F41.8 Other specified anxiety disorders; Y92.538 Other ambulatory health services establishments as the place of occurrence of the external cause
CPT/HCPCS: 71045; 80048; 80053; 80061; 81001; 83690; 84484; 85025; 85610; 94640; 96361; 96375; 96376; C9113; G0378; J0171; J1170; J1200; J1642; J2405; J2550; J2765; J2930; J7030; J7120

== ENCOUNTER → 2018-06-17 | Outpatient (CLI) | payer OTHER | END | disposition home or self-care (01) | LOC: LAB SHORT 08:09 → LAB SRC 08:09 | PROVIDERS: Radiology Diagnostic Radiology | DX: F17.200 Nicotine dependence, unspecified, uncomplicated (principal) | CPT/HCPCS: G0480 ==

== ENCOUNTER 2018-07-14 07:23 | Day surgery (SDC) | payer OTHER ==
[~2018-07-14] VITALS: Ht 157.5 cm; Wt 46.4 kg
--- NOTE | 2018-07-14 08:30 | NUR ---
07/14/18 0830 Mana Marin ACCESSED BY [facility].TURNER
== END 2018-07-14 09:35 | disposition home or self-care (01) ==
LOC: ORSCSDS 07:23
PROVIDERS: Internal Medicine Gastroenterology
PROC: 0DJ08ZZ Inspection of Upper Intestinal Tract, Via Natural or Artificial Opening Endoscopic (ICD-10-PCS; principal; 2018-07-14 09:00)
DX: K25.9 Gastric ulcer, unspecified as acute or chronic, without hemorrhage or perforation (principal); E78.5 Hyperlipidemia, unspecified; I10 Essential (primary) hypertension; E03.9 Hypothyroidism, unspecified; Z87.891 Personal history of nicotine dependence; Z79.01 Long term (current) use of anticoagulants; Z79.899 Other long term (current) drug therapy
CPT/HCPCS: J1642; J2704; J7120

== ENCOUNTER 2018-07-24 09:07 | Emergency (ER) | payer OTHER ==
[~2018-07-24] VITALS: Ht 157.5 cm; Wt 47.2 kg
[2018-07-24] MEDS ORDERED: SUCR1 PO (09:41)
[2018-07-24 10:10] LABS: BASOPHILS ABSOLUTE AUTO 0.02 K/mm3 (0.00-0.23); BASOPHILS PERCENT AUTO 0 % (0-2); EOSINOPHILS ABSOLUTE AUTO 0.17 K/mm3 (0.00-0.68); EOSINOPHILS PERCENT AUTO 3 % (0-6); Hemoglobin 11.4 g/dL (11.5-16.0); IMMATURE GRAN ABSOLUTE AUTO 0.02 K/mm3 (0.00-0.10); IMMATURE GRAN PERCENT AUTO 0 % (0-1); LYMPHOCYTES ABSOLUTE AUTO 1.15 K/mm3 (0.84-5.20); LYMPHOCYTES PERCENT AUTO 22 % (21-46); MONOCYTES ABSOLUTE AUTO 0.42 K/mm3 (0.16-1.47); MONOCYTES PERCENT AUTO 8 % (4-13); Mean Corpuscular HGB 31.6 pg (26.0-34.0); Mean Corpuscular HGB Conc 32.6 g/dL (31.5-36.5); Mean Corpuscular Volume 97 fL (80-100); Mean Platelet Volume 8.9 fL (9.1-12.4); NEUTROPHILS ABSOLUTE AUTO 3.53 K/mm3 (1.96-9.15); NEUTROPHILS PERCENT AUTO 66 % (41-73); Platelet Count 185 K/mm3 (150-400); RDW Coefficient Variation 12.5 % (11.7-14.2); RDW Standard Deviation 45.2 fL (35.1-46.3); Red Blood Cell Count 3.61 M/mm3 (3.80-5.20); White Blood Cell Count 5.31 K/mm3 (4.00-11.30)
[2018-07-24 10:27] LABS: Alanine Aminotransfer (ALT/SGP 23 U/L (12-78); Albumin, Blood 2.9 g/dL (3.4-5.0); Albumin/Globulin Ratio 0.8 (0.8-1.8); Alk Phos 81 U/L (50-136); Anion Gap 6 mmol/L (6-16); Aspartate Aminotrans (AST/SGOT 18 U/L (12-37); Bilirubin, Total 0.2 mg/dL (0.1-1.0); Blood Urea Nitrogen 18 mg/dL (8-24); Bun/Creatinine Ratio 21.2 (12.0-20.0); CO2, Blood 28 mmol/L (21-32); Calcium, Blood 8.4 mg/dL (8.5-10.1); Chloride, Blood 106 mmol/L (98-108); Creatinine, Blood 0.85 mg/dL (0.40-1.00); Globulin, Blood 3.5 g/dL (2.2-4.0); Glomerular Filtration Rate >60 (60-); Glucose, Blood 95 mg/dL (70-99); Potassium, Blood 4.2 mmol/L (3.5-5.5); Sodium, Blood 140 mmol/L (136-145); Total Protein, Blood 6.4 g/dL (6.4-8.2)
[2018-07-24 10:37] LABS: International Normalized Ratio 2.77; Prothrombin Time Results 26.8 Sec (9.7-11.5)
== END 2018-07-24 12:07 | disposition home or self-care (01) ==
LOC: ER 09:07
PROVIDERS: Emergency Medicine
DX: S63.502A Unspecified sprain of left wrist, initial encounter (principal); E86.0 Dehydration; R11.2 Nausea with vomiting, unspecified; I73.9 Peripheral vascular disease, unspecified; I11.9 Hypertensive heart disease without heart failure; I43 Cardiomyopathy in diseases classified elsewhere; J44.9 Chronic obstructive pulmonary disease, unspecified; E78.00 Pure hypercholesterolemia, unspecified; F32.9 Major depressive disorder, single episode, unspecified; F43.10 Post-traumatic stress disorder, unspecified; F41.9 Anxiety disorder, unspecified; D64.9 Anemia, unspecified; Z88.6 Allergy status to analgesic agent; Z88.8 Allergy status to other drugs, medicaments and biological substances; Z79.899 Other long term (current) drug therapy; Z87.891 Personal history of nicotine dependence; W01.0XXA Fall on same level from slipping, tripping and stumbling without subsequent striking against object, initial encounter
CPT/HCPCS: 73110; 73610; 80053; 83690; 85025; 85610; 96361; 96374; 96375; 99283-25; J1642; J2405; J2550; J7030

== ENCOUNTER 2018-08-24 00:38 | Day surgery (SDC) | payer OTHER ==
[2018-08-24 09:39] LABS: BASOPHILS ABSOLUTE AUTO 0.01 K/mm3 (0.00-0.23); BASOPHILS PERCENT AUTO 0 % (0-2); EOSINOPHILS ABSOLUTE AUTO 0.14 K/mm3 (0.00-0.68); EOSINOPHILS PERCENT AUTO 3 % (0-6); Hematocrit 32.5 % (33.0-51.0); Hemoglobin 10.6 g/dL (11.5-16.0); IMMATURE GRAN ABSOLUTE AUTO 0.02 K/mm3 (0.00-0.10); IMMATURE GRAN PERCENT AUTO 0 % (0-1); LYMPHOCYTES ABSOLUTE AUTO 1.59 K/mm3 (0.84-5.20); LYMPHOCYTES PERCENT AUTO 33 % (21-46); MONOCYTES ABSOLUTE AUTO 0.41 K/mm3 (0.16-1.47); MONOCYTES PERCENT AUTO 9 % (4-13); Mean Corpuscular HGB 32.3 pg (26.0-34.0); Mean Corpuscular HGB Conc 32.6 g/dL (31.5-36.5); Mean Corpuscular Volume 99 fL (80-100); Mean Platelet Volume 9.2 fL (9.1-12.4); NEUTROPHILS ABSOLUTE AUTO 2.65 K/mm3 (1.96-9.15); NEUTROPHILS PERCENT AUTO 55 % (41-73); Platelet Count 187 K/mm3 (150-400); RDW Coefficient Variation 13.1 % (11.7-14.2); RDW Standard Deviation 47.4 fL (35.1-46.3); Red Blood Cell Count 3.28 M/mm3 (3.80-5.20); White Blood Cell Count 4.82 K/mm3 (4.00-11.30)
[2018-08-24 09:51] LABS: International Normalized Ratio 0.96; Prothrombin Time Results 10.2 Sec (9.7-11.5)
[2018-08-24 10:05] LABS: Anion Gap 6 mmol/L (6-16); Blood Urea Nitrogen 15 mg/dL (8-24); Bun/Creatinine Ratio 17.6 (12.0-20.0); CO2, Blood 26 mmol/L (21-32); Chloride, Blood 108 mmol/L (98-108); Creatinine, Blood 0.85 mg/dL (0.40-1.00); Glomerular Filtration Rate >60 (60-); Glucose, Blood 102 mg/dL (70-99); Potassium, Blood 3.8 mmol/L (3.5-5.5); Sodium, Blood 140 mmol/L (136-145)
== END 2018-08-24 09:15 | disposition home or self-care (01) ==
LOC: ATC 00:38
PROVIDERS: Radiology Diagnostic Radiology
DX: D50.9 Iron deficiency anemia, unspecified (principal); I73.9 Peripheral vascular disease, unspecified; K91.2 Postsurgical malabsorption, not elsewhere classified; F17.210 Nicotine dependence, cigarettes, uncomplicated; E78.5 Hyperlipidemia, unspecified; I10 Essential (primary) hypertension; E03.9 Hypothyroidism, unspecified; M81.0 Age-related osteoporosis without current pathological fracture; F43.10 Post-traumatic stress disorder, unspecified; F32.9 Major depressive disorder, single episode, unspecified; Z79.01 Long term (current) use of anticoagulants; Z79.899 Other long term (current) drug therapy; Z92.3 Personal history of irradiation; Z85.6 Personal history of leukemia; Z88.6 Allergy status to analgesic agent; Z88.5 Allergy status to narcotic agent; Z88.8 Allergy status to other drugs, medicaments and biological substances
CPT/HCPCS: 36591; 80048; 85025; 85610; J1642

== ENCOUNTER 2018-08-25 06:32 | Day surgery (SDC) | payer OTHER ==
[~2018-08-25] VITALS: Ht 157.5 cm; Wt 49.0 kg
--- NOTE | 2018-08-25 10:32 | NUR ---
0935: Pt received from Atul Lerma RN, Pt flat with right groin site wnl. Pt with doppler pulses. Pt sleepy responds to questions. Pt is asking for narcotics. 0950: Pt with dry heaves, medicated for the second time today with zofran. Normally pt takes medical marijuana per pt. Support on the right groin. Dr. Hollins aware of pts request for more narcotics and that is denied. 1045: Pt understands that the will not order narcotics. I have given pt cold compress offered pillows for repositioning. Pt states her left leg is from toe up is hurting. She is unable to give me a number. I reassured her that we are here watching her. Her VSS have been stable. Pt given call light.
--- NOTE | 2018-08-25 11:56 | NUR ---
Pt requested medications for anxiety. Pt med with Klonipin po per Dr. Wright. Pt took some water only a small amount. Pt is resting better now. Pt with call light. Right groin site within normal limits. Pt with dp doppler pulse left foot, right with popiteal doppler pulses. Head slightly raised.
--- NOTE | 2018-08-25 13:35 | NUR ---
Pt stable Dr. Wright spoke to patient regarding results. Call to office for f/u Office will call pt for return appointment per Tiara ZABALA. Pt ambulatory with chronic pain. Medicated with klonipin with good results to diminsh anxiety. Pt verbalzied understanding in not giving narcotics. Site right groin within normal limits. Pt given prescription for procardia which was called into the [employer] [facility], I spoke with PHarmcist Karen and gave hard copy to patient w/ call in. VSS spouse Carlos arrived and discharge instructions where reviewed with him. Med a port flushed by Nicolás Dumont RN per order.
--- NOTE | 2018-08-25 13:40 | NUR ---
Pt received from Evert Phillips RN alert and oriented she voided on bed tang at 1330. Slight bruising at right groin site no hemoatoma or bleeding noted. Pt states she is having 10/10 pain left arm. Orders received for fentanyl and toradol which she has now recieved iv. Pt on 2 liters of 02 post medication for sat 82%. Now with o2 NC sat 97%. Pt is resting now, light snoring. Sips of water prior to her being medicated. Left iv patient with NS infusing. 200ml given in recovery.
== END 2018-08-25 14:50 | disposition home or self-care (01) ==
LOC: MHTC 06:32
PROC: 047N3Z1 Dilation of Left Popliteal Artery using Drug-Coated Balloon, Percutaneous Approach (ICD-10-PCS; principal; 2018-08-25)
PROC: 047D3Z1 Dilation of Left Common Iliac Artery using Drug-Coated Balloon, Percutaneous Approach (ICD-10-PCS; principal; 2018-08-25)
DX: I70.202 Unspecified atherosclerosis of native arteries of extremities, left leg (principal); I10 Essential (primary) hypertension; E78.5 Hyperlipidemia, unspecified; E03.9 Hypothyroidism, unspecified; F12.10 Cannabis abuse, uncomplicated; M81.0 Age-related osteoporosis without current pathological fracture; C95.91 Leukemia, unspecified, in remission; Z92.3 Personal history of irradiation; Z87.891 Personal history of nicotine dependence; Z95.820 Peripheral vascular angioplasty status with implants and grafts; Z79.899 Other long term (current) drug therapy; Z79.01 Long term (current) use of anticoagulants; Z88.8 Allergy status to other drugs, medicaments and biological substances; Z88.5 Allergy status to narcotic agent
CPT/HCPCS: 37220; 37224; 75710; 85347; 99152; 99153; C1725; C1760; C1769; C1887; C1894; C2623; J1200; J1642; J1644; J2060; J2250; J2405; J3010; J7030; Q9967

== ENCOUNTER 2018-09-17 00:15 | Day surgery (SDC) | payer OTHER ==
[2018-09-17 09:53] LABS: Albumin, Blood 3.2 g/dL (3.4-5.0); Anion Gap 9 mmol/L (6-16); Blood Urea Nitrogen 20 mg/dL (8-24); Bun/Creatinine Ratio 18.3 (12.0-20.0); CO2, Blood 24 mmol/L (21-32); Calcium, Blood 8.4 mg/dL (8.5-10.1); Chloride, Blood 105 mmol/L (98-108); Creatinine, Blood 1.09 mg/dL (0.40-1.00); Glomerular Filtration Rate 55 (60-); Glucose, Blood 122 mg/dL (70-99); Phosphorus, Blood 2.5 mg/dL (2.5-4.9); Sodium, Blood 138 mmol/L (136-145)
== END 2018-09-17 08:52 | disposition home or self-care (01) ==
LOC: ATC 00:15
PROVIDERS: Internal Medicine Nephrology
DX: I12.9 Hypertensive chronic kidney disease with stage 1 through stage 4 chronic kidney disease, or unspecified chronic kidney disease (principal); N18.2 Chronic kidney disease, stage 2 (mild); D63.1 Anemia in chronic kidney disease; K90.9 Intestinal malabsorption, unspecified; D50.9 Iron deficiency anemia, unspecified; F32.9 Major depressive disorder, single episode, unspecified; F43.10 Post-traumatic stress disorder, unspecified; E78.5 Hyperlipidemia, unspecified; E03.9 Hypothyroidism, unspecified; F17.210 Nicotine dependence, cigarettes, uncomplicated; Z79.899 Other long term (current) drug therapy; Z79.01 Long term (current) use of anticoagulants; Z79.02 Long term (current) use of antithrombotics/antiplatelets; Z88.8 Allergy status to other drugs, medicaments and biological substances; Z88.6 Allergy status to analgesic agent; Z88.1 Allergy status to other antibiotic agents; Z98.890 Other specified postprocedural states
CPT/HCPCS: 36591; 80069; 85018; J1642

== ENCOUNTER 2018-09-18 16:46 | Inpatient (IN) | payer OTHER ==
[~2018-09-18] VITALS: Ht 157.5 cm; Wt 42.1 kg
[2018-09-18 17:59] LABS: BASOPHILS ABSOLUTE AUTO 0.04 K/mm3 (0.00-0.23); BASOPHILS PERCENT AUTO 0 % (0-2); EOSINOPHILS ABSOLUTE AUTO 0.09 K/mm3 (0.00-0.68); EOSINOPHILS PERCENT AUTO 1 % (0-6); Hematocrit 28.4 % (33.0-51.0); Hemoglobin 9.4 g/dL (11.5-16.0); IMMATURE GRAN ABSOLUTE AUTO 0.05 K/mm3 (0.00-0.10); IMMATURE GRAN PERCENT AUTO 1 % (0-1); LYMPHOCYTES ABSOLUTE AUTO 2.42 K/mm3 (0.84-5.20); LYMPHOCYTES PERCENT AUTO 24 % (21-46); MONOCYTES ABSOLUTE AUTO 0.71 K/mm3 (0.16-1.47); MONOCYTES PERCENT AUTO 7 % (4-13); Mean Corpuscular HGB 31.9 pg (26.0-34.0); Mean Corpuscular HGB Conc 33.1 g/dL (31.5-36.5); Mean Corpuscular Volume 96 fL (80-100); NEUTROPHILS ABSOLUTE AUTO 6.92 K/mm3 (1.96-9.15); NEUTROPHILS PERCENT AUTO 68 % (41-73); Platelet Count 408 K/mm3 (150-400); RDW Standard Deviation 49.3 fL (35.1-46.3); Red Blood Cell Count 2.95 M/mm3 (3.80-5.20); White Blood Cell Count 10.23 K/mm3 (4.00-11.30)
[2018-09-18 18:21] LABS: Albumin, Blood 3.1 g/dL (3.4-5.0); Albumin/Globulin Ratio 0.9 (0.8-1.8); Bilirubin, Total 0.1 mg/dL (0.1-1.0); Bun/Creatinine Ratio 21.5 (12.0-20.0); Calcium, Blood 8.8 mg/dL (8.5-10.1); Creatinine, Blood 1.21 mg/dL (0.40-1.00); Globulin, Blood 3.5 g/dL (2.2-4.0); Potassium, Blood 4.2 mmol/L (3.5-5.5); Total Protein, Blood 6.6 g/dL (6.4-8.2)
[2018-09-18 18:51] LABS: Source, Urine Clean Catch
[2018-09-18 18:57] LABS: Bilirubin, Urine Neg (Neg); Blood, Urine 1+ (Neg); Glucose Qualitative, Urine Neg (Neg); Ketones, Urine Neg (Neg); Leukocyte Esterase, Urine Neg (Neg); Nitrite, Urine Neg (Neg); Protein, Urine Neg (Neg); Urobilinogen, Urine NORM (Normal)
[2018-09-18 19:08] LABS: Appearance, Urine Hazy (Clear); Color, Urine Yellow (P-Yellow)
[2018-09-18 19:10] LABS: Bacteria Rare /hpf; Red Blood Cells, Urine 0-2 /hpf (0-2); Squamous Epithelial Cells Few /hpf (Few)
[2018-09-18 19:49] LABS: International Normalized Ratio 2.8
--- NOTE | 2018-09-18 23:38 | NUR ---
PATIENT IS A NEW ADMIT FROM THE ED. ONE ASSIST TRANSFER FROM [facility] TO BED. AXOX 3. NS INFUSING AT 200 mL/HR X TWO BAGS THROUGH MEDIPORT RU CHEST FOLLOWED BY NS AT 125 mL/HR. PATIENT REPORTS N/V AND ZOFRAN IV GIVEN PER EMAR. PATIENT ORIENTED TO ROOM AND CALL LIGHT SYSTEM. UP TO BSC WITH ONE ASSIST. UNABLE TO VOID FIRST ATTEMPT. REPORTS SHE'LL TRY AGAIN. REPORTS FLANK PAIN AND WILL GIVE TYLENOL PER EMAR. VSS/AFEBRILE. CALL LIGHT IN REACH.
--- NOTE | 2018-09-19 00:58 | NUR ---
HOSPITALIST DR REYES ORDERED FENTANYL 25-50 MCG IV Q4 FOR PATIENT FLANK PAIN PRN.
--- NOTE | 2018-09-19 03:47 | NUR ---
SHIFT SUMMARY PATIENT AXO X4 AND SBA TO [facility]. PATIENT REPORTED N/V EVERY 2 TO 2.5 HRS. IV ZOFRAN AND REGLAN GIVEN FOLLOWED BY PO PHENERGAN 25 MG. PATIENT SLEEPING ONLY TWO HOURS AT A TIME. HOSPITALIST DR REYES ORDERED FENTANYL 25-50 MCG IV PRN FOR BILATERAL FLANK PAIN Q4. PATIENT REPORTS REDUCED PAIN. SHE REFUSES TYLENOL. MEDIPORT RU CHEST. NS INFUSING AT 200 mL/HR BAG TWO OF TWO. NS AT 125 mL/HR WILL FOLLOW. VSS/AFEBRILE. CLEAR LIQUID DIET. COOPERATIVE WITH CARE. CALL LIGHT IN REACH. BED IN LOWEST POSITION. WILL CONTINUE TO MONITOR UNTIL DAY SHIFT NURSE ASSUMES CARE.
[2018-09-19 05:31] LABS: BASOPHILS ABSOLUTE AUTO 0.02 K/mm3 (0.00-0.23); BASOPHILS PERCENT AUTO 0 % (0-2); EOSINOPHILS ABSOLUTE AUTO 0.13 K/mm3 (0.00-0.68); EOSINOPHILS PERCENT AUTO 2 % (0-6); Hematocrit 21.4 % (33.0-51.0); Hemoglobin 6.9 g/dL (11.5-16.0); IMMATURE GRAN ABSOLUTE AUTO 0.01 K/mm3 (0.00-0.10); IMMATURE GRAN PERCENT AUTO 0 % (0-1); LYMPHOCYTES ABSOLUTE AUTO 1.91 K/mm3 (0.84-5.20); LYMPHOCYTES PERCENT AUTO 36 % (21-46); MONOCYTES ABSOLUTE AUTO 0.43 K/mm3 (0.16-1.47); MONOCYTES PERCENT AUTO 8 % (4-13); Mean Corpuscular HGB 31.4 pg (26.0-34.0); Mean Corpuscular HGB Conc 32.2 g/dL (31.5-36.5); Mean Corpuscular Volume 97 fL (80-100); NEUTROPHILS ABSOLUTE AUTO 2.86 K/mm3 (1.96-9.15); NEUTROPHILS PERCENT AUTO 53 % (41-73); Platelet Count 226 K/mm3 (150-400); RDW Coefficient Variation 14.1 % (11.7-14.2); RDW Standard Deviation 49.6 fL (35.1-46.3); White Blood Cell Count 5.36 K/mm3 (4.00-11.30)
[2018-09-19 05:44] LABS: International Normalized Ratio 3.81
[2018-09-19 05:46] LABS: Anion Gap 6 mmol/L (6-16); Blood Urea Nitrogen 14 mg/dL (8-24); Bun/Creatinine Ratio 19.2 (12.0-20.0); CO2, Blood 21 mmol/L (21-32); Calcium, Blood 7.1 mg/dL (8.5-10.1); Chloride, Blood 115 mmol/L (98-108); Creatinine, Blood 0.73 mg/dL (0.40-1.00); Glomerular Filtration Rate >60 (60-); Glucose, Blood 90 mg/dL (70-99); Potassium, Blood 3.8 mmol/L (3.5-5.5); Sodium, Blood 142 mmol/L (136-145)
[2018-09-19 05:49] LABS: Prothrombin Time Results 35.8 Sec (9.7-11.5)
--- NOTE | 2018-09-19 06:39 | NUR ---
HOSPITALIST DR REYES ORDERED ONE UNIT PRBC FOR HB OF 6.9 AND HCT 21.4 ORDER PLACED.
[2018-09-19 07:43] LABS: Hematocrit 21.9 % (33.0-51.0)
--- NOTE | 2018-09-19 12:26 | NUR ---
PT. UPRBC STARTED. PT. INSTRUCTED TO CALL IF SHE BECAME SOB, NOTICED RED RASH, FEEL LIKE SHE WAS ON FIRE. PT. VERBALIZED UNDERSTANDING.
--- NOTE | 2018-09-19 18:42 | NUR ---
PT. SITTING IN BED. HAS BEEN HAVING N/V MOST OF THE DAY, EVEN IN THE FACE OF HAVING ANTIEMETICS. ALSO REPORTING PAIN IN HER BACK AND BELLY. HAS BEEN AWAKE ALL DAY AND HAS NOT EATEN AT ALL. CALLED DR. RUTHERFORD TO CHANGE PHENERGAN TO IV INSTEAD OF PO. I HAVE NOTICED THOUGH THAT SHE IS SOMEWHAT CONFUSED. THOUGHT SHE HAD SOME PLANTS IN ROOM THAT HER BROUGHT IN YESTERDAY MORNING. EXPLAINED SHE WAS NOT HERE YESTERDAY MORNING, STATES "OH WELL IT MUST BE MY MIND". IUPRBC'S GIVEN TODAY.
[2018-09-19 21:13] LABS: Hematocrit 24.8 % (33.0-51.0); Hemoglobin 8.2 g/dL (11.5-16.0)
--- NOTE | 2018-09-19 21:55 | NUR ---
HOSPITALIST DR TUCKER NOTIFIED FOR REPEAT H & H LAB DRAW AFTER ONE UPRBC GIVEN ON DAY SHIFT. LAB ORDERED AND RESULTS 8.2 AND 24.8 UP FROM 7.0 AND 21.9
--- NOTE | 2018-09-20 04:04 | NUR ---
SHIFT SUMMARY PATIENT HAD NO ACUTE CHANGES OBSERVED THIS SHIFT. PATIENT ABLE TO GO ABOUT 3.75 HRS IN BETWEEN PAIN AND ANTIEMETIC MEDICATIONS VS 2-2.5 HRS PREVIOUS NOC SHIFT. MEDIPORT RU CHEST WITH NS INFUSING AT 125 ml/HR. HOSPITALIST DR TUCKER ORDERED H&H LAB AFTER ONE UPRBC GIVEN ON DAY SHIFT (SEE NOTE). PHENERGAN GIVEN FOR N/V Q4 HR AND FENTANYL 50 MCG PER EMAR FOR ABDOMEN PAIN. PATIENT ABLE TO SLEEP ABOUT 3.5 HRS BEFORE N/V. VSS/AFEBRILE. CLEAR LIQUID DIET. PATIENT REPORTS SHE'LL TRY EATING TODAY. CALL LIGHT IN REACH. BED IN LOWEST POSITION. WILL CONTINUE TO MONITOR UNTIL DAY SHIFT NURSE ASSUMES CARE.
[2018-09-20 06:14] LABS: International Normalized Ratio 3.66; Prothrombin Time Results 34.5 Sec (9.7-11.5)
--- NOTE | 2018-09-20 07:30 | NUR ---
PT. SITTING UP IN BED ROCKING AND DRY HEAVING, SAYS SHE GOT SOME SLEEP LAST NIGHT, TOLD PT. IT WAS TOO SOON FOR ANY MORE MEDICATION, SHE SAYS I KNOW, I'M GOING TO TRY AND SLEEP FOR A WHILE.
--- NOTE | 2018-09-20 12:56 | NUR ---
PT. SITTING UP IN BED SLEEPING AT THIS TIME. DID NOT EAT ANY OF HER LUNCH.
--- NOTE | 2018-09-20 19:16 | NUR ---
PT. SLEEPING AT THIS TIME. PAIN AND N/V MUCH BETTER TORDAY WAS ABLE TO EAT A LITTLE OF THE FUL DIET. HAD A SHOWER TODAY. NO OTHER NOTED CHANGES THIS SHIFT.
--- NOTE | 2018-09-21 04:35 | NUR ---
SHIFT SUMMARY PATIENT HAD NO ACUTE CHANGES OBSERVED THIS SHIFT. AXOX 3 AND REPORTED ABDOMEN/BACK PAIN AND RECEIVED FENTANYL 50 MCG PER EMAR. PATIENT REPORTED N/V X TWO AND RECEIVED PHENERGAN IV PER EMAR. PATIENT GOING SIX HRS BETWEEN PAIN/NV MEDS IMPROVING LAST TWO NOC SHIFTS. PATIENT ABLE TO SLEEP AFTER MEDS. MEDIPORT RU CHEST NS AT KVO. VSS/AFEBRILE. FULL LIQUID DIET. SBA TO BSC. BED BATH GIVEN PER TAPE RECORDER MECHANIC. CALL LIGHT IN REACH. BED IN LOWEST POSITION. WILL CONTINUE TO MONITOR UNTIL DAY SHIFT NURSE ASSUMES CARE.
[2018-09-21 04:54] LABS: International Normalized Ratio 2.93; Prothrombin Time Results 28.2 Sec (9.7-11.5)
[2018-09-21 07:50] LABS: Hematocrit 26.5 % (33.0-51.0); Hemoglobin 8.7 g/dL (11.5-16.0)
[2018-09-21] MEDS ORDERED: HYDR1TAB94 PO (16:36)
--- NOTE | 2018-09-21 17:28 | NUR ---
DISCHARGE PT IS A/O X4, S[place] TO [facility]. SHE STATE CONTINUING NAUSEA, "DRY HEAVES" THIS AM w BACK & ABD PAIN. PRN FENTANYL 50 MCG & PHENERGAN GIVEN APPROX Q4 FOR RELIEF. PT REQUESTED DIET ADV TO SOFT THIS AM FOR BF & LUNCH HOWEVER EAT ONLY SM AMTS, REQUEST DIET TO FULL LIQUIDS. STATE THAT NAUSEA IS CHRONIC. THIS AFTERNOON STATE NEED FOR D/C HOME. DR RUTHERFORD NOTIFIED, BACK TO SEE PT, PROVIDE D/C ORDERS. MEDIPORT DEACCESSED/PROTOCOL. HARD COPY PAIN MED SCRIPT PROVIDED. D/C INSTRUCT PROVIDED. PT STATE WILL BE HERE APPROX 1800 FOR TRANSPORT HOME.
== END 2018-09-21 18:19 | disposition home or self-care (01) | DRG 683 ==
LOC: ER 16:46 → MEDS 21:57
PROVIDERS: Emergency Medicine; Internal Medicine; ADMIT Hospitalist
PROC: 30233N1 Transfusion of Nonautologous Red Blood Cells into Peripheral Vein, Percutaneous Approach (ICD-10-PCS; principal; 2018-09-21)
DX: N17.9 Acute kidney failure, unspecified (principal); D68.32 Hemorrhagic disorder due to extrinsic circulating anticoagulants; I42.9 Cardiomyopathy, unspecified; I10 Essential (primary) hypertension; E03.9 Hypothyroidism, unspecified; D50.9 Iron deficiency anemia, unspecified; K27.9 Peptic ulcer, site unspecified, unspecified as acute or chronic, without hemorrhage or perforation; T45.515A Adverse effect of anticoagulants, initial encounter; F41.9 Anxiety disorder, unspecified; E86.0 Dehydration; F43.10 Post-traumatic stress disorder, unspecified; F12.988 Cannabis use, unspecified with other cannabis-induced disorder; K58.9 Irritable bowel syndrome, unspecified; J44.9 Chronic obstructive pulmonary disease, unspecified
CPT/HCPCS: 36430; 80048; 80053; 81001; 85014; 85018; 85025; 85610; 86850; 86870; 86900; 86901; 86902; 86922; 96361; 96374; 96375; 96376; 99285-25; G0378; J1170; J1200; J1642; J2405; J2550; J2765; J3010; J7030; J7050; P9016; P9612

== ENCOUNTER → 2018-09-22 | Outpatient (CLI) | payer OTHER ==
[~2018-09-22] MED LIST changes: +ABAT250V; +ACET325UDC PO; +ALPR.25 PO; +CYCL10 PO; +Calcium Carbon500 M1 PO; +Docu Liqui50 MG/5 ML PO; +HYDROCODONE-ACET5 ML PO; +ONDA4 PO; +ONDA4ODT PO; +Potassium20 MEQ/11 PO
== END | disposition home or self-care (01) ==
LOC: LAB SRC 16:45 → LAB SHORT 16:45
DX: R11.2 Nausea with vomiting, unspecified (principal)
CPT/HCPCS: 87086

== ENCOUNTER 2018-09-24 00:25 | Day surgery (SDC) | payer OTHER ==
[~2018-09-24 00:25] MED LIST changes: -ABAT250V; -ACET325UDC PO; -ALPR.25 PO; -CYCL10 PO; -Calcium Carbon500 M1 PO; -Docu Liqui50 MG/5 ML PO; -HYDROCODONE-ACET5 ML PO; -ONDA4 PO; -ONDA4ODT PO; -Potassium20 MEQ/11 PO
[2018-09-24 15:03] LABS: BASOPHILS ABSOLUTE AUTO 0.02 K/mm3 (0.00-0.23); BASOPHILS PERCENT AUTO 0 % (0-2); EOSINOPHILS ABSOLUTE AUTO 0.16 K/mm3 (0.00-0.68); EOSINOPHILS PERCENT AUTO 3 % (0-6); Hematocrit 27.9 % (33.0-51.0); IMMATURE GRAN ABSOLUTE AUTO 0.02 K/mm3 (0.00-0.10); IMMATURE GRAN PERCENT AUTO 0 % (0-1); LYMPHOCYTES ABSOLUTE AUTO 1.49 K/mm3 (0.84-5.20); LYMPHOCYTES PERCENT AUTO 28 % (21-46); MONOCYTES PERCENT AUTO 8 % (4-13); Mean Corpuscular HGB Conc 32.3 g/dL (31.5-36.5); Mean Corpuscular Volume 96 fL (80-100); NEUTROPHILS ABSOLUTE AUTO 3.15 K/mm3 (1.96-9.15); NEUTROPHILS PERCENT AUTO 60 % (41-73); Platelet Count 228 K/mm3 (150-400); RDW Coefficient Variation 14.8 % (11.7-14.2); RDW Standard Deviation 50.5 fL (35.1-46.3); White Blood Cell Count 5.24 K/mm3 (4.00-11.30)
[2018-09-24 15:15] LABS: Percent Saturation 8.5 % (15.0-50.0)
== END 2018-09-24 14:41 | disposition home or self-care (01) ==
LOC: ATC 00:25
PROVIDERS: Internal Medicine Hematology & Oncology
DX: D50.9 Iron deficiency anemia, unspecified (principal); F17.210 Nicotine dependence, cigarettes, uncomplicated; E78.5 Hyperlipidemia, unspecified; Z88.6 Allergy status to analgesic agent; Z88.1 Allergy status to other antibiotic agents; Z88.8 Allergy status to other drugs, medicaments and biological substances
CPT/HCPCS: 36591; 82728; 83540; 83550; 85025; J1642

== ENCOUNTER 2018-10-05 12:32 | Emergency (ER) | payer OTHER ==
[~2018-10-05] VITALS: Ht 165.1 cm; Wt 59.0 kg
[2018-10-05 13:14] LABS: BASOPHILS ABSOLUTE AUTO 0.03 K/mm3 (0.00-0.23); BASOPHILS PERCENT AUTO 0 % (0-2); EOSINOPHILS ABSOLUTE AUTO 0.01 K/mm3 (0.00-0.68); EOSINOPHILS PERCENT AUTO 0 % (0-6); Hematocrit 30.9 % (33.0-51.0); Hemoglobin 9.3 g/dL (11.5-16.0); IMMATURE GRAN ABSOLUTE AUTO 0.04 K/mm3 (0.00-0.10); IMMATURE GRAN PERCENT AUTO 0 % (0-1); LYMPHOCYTES ABSOLUTE AUTO 0.74 K/mm3 (0.84-5.20); LYMPHOCYTES PERCENT AUTO 8 % (21-46); MONOCYTES ABSOLUTE AUTO 0.12 K/mm3 (0.16-1.47); MONOCYTES PERCENT AUTO 1 % (4-13); Mean Corpuscular HGB 29.4 pg (26.0-34.0); Mean Corpuscular HGB Conc 30.1 g/dL (31.5-36.5); Mean Corpuscular Volume 98 fL (80-100); NEUTROPHILS PERCENT AUTO 90 % (41-73); Platelet Count 437 K/mm3 (150-400); RDW Coefficient Variation 13.9 % (11.7-14.2); RDW Standard Deviation 49.4 fL (35.1-46.3); Red Blood Cell Count 3.16 M/mm3 (3.80-5.20); White Blood Cell Count 9.24 K/mm3 (4.00-11.30)
[2018-10-05 13:41] LABS: Alanine Aminotransfer (ALT/SGP 14 U/L (12-78); Albumin/Globulin Ratio 0.9 (0.8-1.8); Alk Phos 60 U/L (50-136); Anion Gap 6 mmol/L (6-16); Aspartate Aminotrans (AST/SGOT 11 U/L (12-37); Bilirubin, Total 0.2 mg/dL (0.1-1.0); Blood Urea Nitrogen 15 mg/dL (8-24); Bun/Creatinine Ratio 24.2 (12.0-20.0); CO2, Blood 21 mmol/L (21-32); Calcium, Blood 7.8 mg/dL (8.5-10.1); Chloride, Blood 114 mmol/L (98-108); Creatinine, Blood 0.62 mg/dL (0.40-1.00); Globulin, Blood 3.4 g/dL (2.2-4.0); Glomerular Filtration Rate >60 (60-); Glucose, Blood 156 mg/dL (70-99); Sodium, Blood 141 mmol/L (136-145); Total Protein, Blood 6.4 g/dL (6.4-8.2)
[2018-10-05] MEDS ORDERED: PROM25 PO (15:31)
[2018-10-05] MEDS ORDERED: CYCL10 PO (15:31)
== END 2018-10-05 15:46 | disposition home or self-care (01) ==
LOC: ER 12:32
PROVIDERS: Emergency Medicine
DX: R07.9 Chest pain, unspecified (principal); T45.4X5A Adverse effect of iron and its compounds, initial encounter; I10 Essential (primary) hypertension; F41.9 Anxiety disorder, unspecified; F43.10 Post-traumatic stress disorder, unspecified; F32.9 Major depressive disorder, single episode, unspecified; E03.9 Hypothyroidism, unspecified; J44.9 Chronic obstructive pulmonary disease, unspecified; Z87.891 Personal history of nicotine dependence; Z88.1 Allergy status to other antibiotic agents; Z88.5 Allergy status to narcotic agent; Z88.8 Allergy status to other drugs, medicaments and biological substances; Z79.02 Long term (current) use of antithrombotics/antiplatelets; Z79.01 Long term (current) use of anticoagulants; Z79.891 Long term (current) use of opiate analgesic; Z79.899 Other long term (current) drug therapy
CPT/HCPCS: 80053; 85025; 93005; 93010; 96361; 96374; 96376; 99284-25; J1642; J2550; J7030

== ENCOUNTER 2018-10-17 07:48 | Observation (INO) | payer OTHER ==
[~2018-10-17] VITALS: Ht 157.5 cm; Wt 50.8 kg
[~2018-10-17 07:48] MED LIST changes: +CYCL10 PO
[2018-10-17] MEDS ORDERED: PROM25S PR (08:05)
[2018-10-17] MEDS ORDERED: ONDA4 PO (08:05)
[2018-10-17 08:48] LABS: BASOPHILS ABSOLUTE AUTO 0.03 K/mm3 (0.00-0.23); BASOPHILS PERCENT AUTO 0 % (0-2); EOSINOPHILS PERCENT AUTO 1 % (0-6); Hematocrit 34.5 % (33.0-51.0); Hemoglobin 10.6 g/dL (11.5-16.0); IMMATURE GRAN ABSOLUTE AUTO 0.03 K/mm3 (0.00-0.10); IMMATURE GRAN PERCENT AUTO 0 % (0-1); LYMPHOCYTES ABSOLUTE AUTO 1.03 K/mm3 (0.84-5.20); LYMPHOCYTES PERCENT AUTO 11 % (21-46); MONOCYTES ABSOLUTE AUTO 0.78 K/mm3 (0.16-1.47); MONOCYTES PERCENT AUTO 8 % (4-13); Mean Corpuscular HGB 28.7 pg (26.0-34.0); Mean Corpuscular HGB Conc 30.7 g/dL (31.5-36.5); Mean Platelet Volume 9.4 fL (9.1-12.4); NEUTROPHILS PERCENT AUTO 79 % (41-73); Platelet Count 270 K/mm3 (150-400); RDW Standard Deviation 51.5 fL (35.1-46.3); Red Blood Cell Count 3.69 M/mm3 (3.80-5.20); White Blood Cell Count 9.37 K/mm3 (4.00-11.30)
[2018-10-17 08:52] LABS: Mean Corpuscular Volume 94 fL (80-100)
[2018-10-17 09:07] LABS: Alanine Aminotransfer (ALT/SGP 16 U/L (12-78); Albumin/Globulin Ratio 0.9 (0.8-1.8); Alk Phos 65 U/L (50-136); Anion Gap 6 mmol/L (6-16); Aspartate Aminotrans (AST/SGOT 16 U/L (12-37); Bilirubin, Total 0.2 mg/dL (0.1-1.0); Blood Urea Nitrogen 19 mg/dL (8-24); Bun/Creatinine Ratio 23.4 (12.0-20.0); CO2, Blood 24 mmol/L (21-32); Calcium, Blood 7.9 mg/dL (8.5-10.1); Chloride, Blood 109 mmol/L (98-108); Creatinine, Blood 0.81 mg/dL (0.40-1.00); Globulin, Blood 3.4 g/dL (2.2-4.0); Glomerular Filtration Rate >60 (60-); Glucose, Blood 109 mg/dL (70-99); Potassium, Blood 4.3 mmol/L (3.5-5.5); Sodium, Blood 139 mmol/L (136-145); Total Protein, Blood 6.4 g/dL (6.4-8.2)
[2018-10-17 09:25] LABS: Source, Urine Clean Catch
[2018-10-17 09:34] LABS: Appearance, Urine Clear (Clear); Blood, Urine 1+ (Neg); Color, Urine Amber (P-Yellow); Glucose Qualitative, Urine Neg (Neg); Ketones, Urine 1+ (Neg); Leukocyte Esterase, Urine 1+ (Neg); Nitrite, Urine Neg (Neg); Protein, Urine 1+ (Neg); Urobilinogen, Urine 1+ (Normal)
[2018-10-17 09:58] LABS: Bilirubin, Urine 2+ (Neg)
[2018-10-17 10:00] LABS: Mucus Mod (0-Heavy)
[2018-10-17 10:01] LABS: Bacteria Few /hpf; Squamous Epithelial Cells Few /hpf (Few); White Blood Cells, Urine 0-2 /hpf (0-5)
--- NOTE | 2018-10-17 14:40 | NUR ---
ADMIT NOTE- RECIEVED REPORT FROM ED RN ARTIE. PT ADMITTED D/T N/V. PT HAS EXTENSIVE ALLERGIES WELL GI Hx. PT ARRIVED C/O NAUSEA STATED SHE NEEDED MEDS FOR ANXIETY. PT HAS A HOME DOSE THAT IS DAILY THAT HAS BEEN ORDERED. PT RECIEVED HOME DOSE OF CLONAZAPAM WELL IV PHENEGREN AND HER LEVOTHYROXIN.
[2018-10-17 16:52] LABS: International Normalized Ratio 2.6; Prothrombin Time Results 25.3 Sec (9.7-11.5)
--- NOTE | 2018-10-17 17:54 | NUR ---
SHIFT SUMMARY- PT WAS ADMITTED THROUGH THE ED, ALL ANTI-NAUSEA MEDICATIONS AVAILABLE HAVE BEEN GIVEN. PT DRY HEAVES UNTIL STAFF COME TO CHECK ON HER, DISTRACTION SEEMS TO HELP WITH THE NAUSEA. THEN PT WILL BE OK FOR A WHILE. PT HAS BEEN ASKING WHO IS THE NIGHT HOSPITALIST DANA, SHE STATED SHE WANTS TO ASK HIM FOR PAIN MEDICATION OR SLEEPING PILLS. PT STATED SHE GETS ALONG BETTER WITH MEN, AND MAYBE HE WILL BE MORE WILLING TO GIVE HER PAIN MEDICATION. PT HAS NO S&S OF PAIN AND APPEARS WELL MEDICATED.
--- NOTE | 2018-10-18 04:12 | NUR ---
SHIFT SUMMARY: PT SLEEPY T/O SHIFT. WILL OCCASIONALLY WAKE UP AND BEGIN DRY HEAVING. NO EMESIS. GIVEN 12.5MG OF PHENERGAN PER EMAR WHICH SEEMED TO HELP WITH THE NAUSEA. ALTHOUGH PT VERY DROWSY. FLUIDS INFUSING THROUGH PORT ON RIGHT CHEST WALL. VOIDING IN BEDSIDE COMMODE WITH 1 ASSIST.
[2018-10-18 04:53] LABS: BASOPHILS ABSOLUTE AUTO 0.01 K/mm3 (0.00-0.23); BASOPHILS PERCENT AUTO 0 % (0-2); EOSINOPHILS ABSOLUTE AUTO 0.11 K/mm3 (0.00-0.68); EOSINOPHILS PERCENT AUTO 3 % (0-6); Hematocrit 27.9 % (33.0-51.0); Hemoglobin 8.3 g/dL (11.5-16.0); IMMATURE GRAN ABSOLUTE AUTO 0.01 K/mm3 (0.00-0.10); IMMATURE GRAN PERCENT AUTO 0 % (0-1); LYMPHOCYTES ABSOLUTE AUTO 1.03 K/mm3 (0.84-5.20); LYMPHOCYTES PERCENT AUTO 27 % (21-46); MONOCYTES ABSOLUTE AUTO 0.45 K/mm3 (0.16-1.47); MONOCYTES PERCENT AUTO 12 % (4-13); Mean Corpuscular HGB 29.2 pg (26.0-34.0); Mean Corpuscular HGB Conc 29.7 g/dL (31.5-36.5); Mean Platelet Volume 9.4 fL (9.1-12.4); NEUTROPHILS ABSOLUTE AUTO 2.25 K/mm3 (1.96-9.15); NEUTROPHILS PERCENT AUTO 58 % (41-73); Platelet Count 169 K/mm3 (150-400); RDW Coefficient Variation 14.7 % (11.7-14.2); RDW Standard Deviation 53.2 fL (35.1-46.3); Red Blood Cell Count 2.84 M/mm3 (3.80-5.20); White Blood Cell Count 3.86 K/mm3 (4.00-11.30)
[2018-10-18 04:57] LABS: Mean Corpuscular Volume 98 fL (80-100)
[2018-10-18 05:13] LABS: Anion Gap 5 mmol/L (6-16); Blood Urea Nitrogen 11 mg/dL (8-24); Bun/Creatinine Ratio 17.5 (12.0-20.0); CO2, Blood 25 mmol/L (21-32); Calcium, Blood 6.8 mg/dL (8.5-10.1); Chloride, Blood 115 mmol/L (98-108); Creatinine, Blood 0.63 mg/dL (0.40-1.00); Glomerular Filtration Rate >60 (60-); Glucose, Blood 86 mg/dL (70-99); Potassium, Blood 4.1 mmol/L (3.5-5.5); Sodium, Blood 145 mmol/L (136-145)
[2018-10-18 05:36] LABS: International Normalized Ratio 2.9; Prothrombin Time Results 27.9 Sec (9.7-11.5)
[2018-10-18 06:53] LABS: U Amphetamine Screen Not Detected; U Barbituate Screen Not Detected; U Benzodiazapine Screen DETECTED; U Buprenorphine Screen Not Detected; U Cannabinoids Screen DETECTED; U Cocaine Screen Not Detected; U Methadone Screen Not Detected; U Methamphetamine Screen Not Detected; U Opiates Screen Not Detected; U Oxycodone Screen Not Detected; U Phencyclidine Screen Not Detected; U Propoxyphene Screen Not Detected
--- NOTE | 2018-10-18 14:36 | NUR ---
pt to discharge, tolerating po
--- NOTE | 2018-10-18 15:57 | NUR ---
DISCHARGE NOTE- PT WAS GIVEN VERBAL AND WRITTEN DISCHARGE INSTRUCTIONS AND ACKNOWLEDGED UNDERSTANDING OF THEM. MEDIPORT HEPRIN LOCKED AND DEACCESSED AT THE TIME OF DISCHARGE. PT GOT UP, DRESSED HERSELF AND WAS ESCORTED OUT VIA WC BY THE BIOMETRICS HEAD. NO S&S OF PAIN OR NAUSEA AT THE TIME OF DISCHARGE.
== END 2018-10-18 15:58 | disposition home or self-care (01) ==
LOC: ER 07:48 → MEDS 07:49
PROVIDERS: Emergency Medicine; ADMIT Internal Medicine
DX: R11.2 Nausea with vomiting, unspecified (principal); F12.988 Cannabis use, unspecified with other cannabis-induced disorder; I10 Essential (primary) hypertension; I73.9 Peripheral vascular disease, unspecified; D50.9 Iron deficiency anemia, unspecified; F32.9 Major depressive disorder, single episode, unspecified; F41.9 Anxiety disorder, unspecified; E03.9 Hypothyroidism, unspecified; Z87.11 Personal history of peptic ulcer disease; Z86.718 Personal history of other venous thrombosis and embolism; Z87.891 Personal history of nicotine dependence; Z79.01 Long term (current) use of anticoagulants; Z79.51 Long term (current) use of inhaled steroids; Z79.899 Other long term (current) drug therapy; Z88.8 Allergy status to other drugs, medicaments and biological substances; Z88.1 Allergy status to other antibiotic agents; Z88.5 Allergy status to narcotic agent
CPT/HCPCS: 74022; 80048; 80053; 81001; 83690; 85025; 85610; 87086; 94760; 96361; 96374; 96375; 96376; 99285-25; C9113; G0378; J1642; J2405; J2550; J7030; J7120; P9612

== ENCOUNTER 2018-10-28 10:05 | Inpatient (IN) | payer OTHER ==
[~2018-10-28] VITALS: Ht 157.5 cm; Wt 50.0 kg
[~2018-10-28 10:05] MED LIST changes: +ONDA4 PO
[2018-10-28 11:00] LABS: BASOPHILS ABSOLUTE AUTO 0.06 K/mm3 (0.00-0.23); BASOPHILS PERCENT AUTO 0 % (0-2); EOSINOPHILS ABSOLUTE AUTO 0.18 K/mm3 (0.00-0.68); EOSINOPHILS PERCENT AUTO 1 % (0-6); Hematocrit 25.9 % (33.0-51.0); Hemoglobin 7.7 g/dL (11.5-16.0); IMMATURE GRAN ABSOLUTE AUTO 0.17 K/mm3 (0.00-0.10); IMMATURE GRAN PERCENT AUTO 1 % (0-1); LYMPHOCYTES ABSOLUTE AUTO 3.95 K/mm3 (0.84-5.20); LYMPHOCYTES PERCENT AUTO 21 % (21-46); MONOCYTES ABSOLUTE AUTO 1.69 K/mm3 (0.16-1.47); MONOCYTES PERCENT AUTO 9 % (4-13); Mean Corpuscular HGB 29.6 pg (26.0-34.0); Mean Corpuscular HGB Conc 29.7 g/dL (31.5-36.5); Mean Corpuscular Volume 100 fL (80-100); Mean Platelet Volume 9.4 fL (9.1-12.4); NEUTROPHILS ABSOLUTE AUTO 13.13 K/mm3 (1.96-9.15); NEUTROPHILS PERCENT AUTO 69 % (41-73); NRBC ABSOLUTE 0.04 K/mm3 (0.00-0.02); NRBC Auto 0.2 /100 WBC (0.0-0.2); Platelet Count 581 K/mm3 (150-400); RDW Coefficient Variation 16.1 % (11.7-14.2); RDW Standard Deviation 58.4 fL (35.1-46.3); White Blood Cell Count 19.18 K/mm3 (4.00-11.30)
[2018-10-28 11:03] LABS: International Normalized Ratio 3.19; Prothrombin Time Results 30.4 Sec (9.7-11.5)
[2018-10-28 11:11] LABS: Alanine Aminotransfer (ALT/SGP 17 U/L (12-78); Albumin, Blood 2.8 g/dL (3.4-5.0); Albumin/Globulin Ratio 0.8 (0.8-1.8); Alk Phos 69 U/L (50-136); Anion Gap 12 mmol/L (6-16); Aspartate Aminotrans (AST/SGOT 13 U/L (12-37); Bilirubin, Total 0.2 mg/dL (0.1-1.0); Blood Urea Nitrogen 26 mg/dL (8-24); Bun/Creatinine Ratio 28.1 (12.0-20.0); CO2, Blood 20 mmol/L (21-32); Chloride, Blood 107 mmol/L (98-108); Creatinine, Blood 0.93 mg/dL (0.40-1.00); Ethanol (Alcohol), Blood, Med <3 mg/dL; Globulin, Blood 3.5 g/dL (2.2-4.0); Glomerular Filtration Rate >60 (60-); Glucose, Blood 165 mg/dL (70-99); Potassium, Blood 3.8 mmol/L (3.5-5.5); Sodium, Blood 139 mmol/L (136-145); Total Protein, Blood 6.3 g/dL (6.4-8.2); Troponin I <0.015 ng/mL (0.000-0.040)
[2018-10-28] MEDS ORDERED: SUCR1 PO (11:48)
[2018-10-28 12:38] LABS: Source, Urine Voided
[2018-10-28 12:43] LABS: Bilirubin, Urine Neg (Neg); Blood, Urine 1+ (Neg); Glucose Qualitative, Urine Neg (Neg); Ketones, Urine 1+ (Neg); Leukocyte Esterase, Urine Neg (Neg); Nitrite, Urine Neg (Neg); Protein, Urine Neg (Neg); Specific Gravity, Urine 1.015 (1.003-1.022); Urobilinogen, Urine NORM (Normal)
[2018-10-28 12:55] LABS: Color, Urine Yellow (P-Yellow)
[2018-10-28 12:56] LABS: Appearance, Urine Hazy (Clear); Bacteria Few /hpf; Granular Casts 0-2 /lpf (0); Red Blood Cells, Urine 0-2 /hpf (0-2); Squamous Epithelial Cells Many /hpf (Few); White Blood Cells, Urine 0-2 /hpf (0-5)
[2018-10-28 12:58] LABS: U Amphetamine Screen Not Detected; U Barbituate Screen Not Detected; U Benzodiazapine Screen Not Detected; U Buprenorphine Screen Not Detected; U Cannabinoids Screen DETECTED; U Cocaine Screen Not Detected; U Methadone Screen Not Detected; U Methamphetamine Screen Not Detected; U Opiates Screen Not Detected; U Oxycodone Screen Not Detected; U Phencyclidine Screen Not Detected; U Propoxyphene Screen Not Detected
[2018-10-28 13:43] LABS: Percent Saturation 12.4 % (15.0-50.0)
--- NOTE | 2018-10-28 14:40 | NUR ---
DR PUENTES CALLED AT 1350 REGUARDING PT'S REQUEST FOR PAIN MEDICATIONS. PT IS NOTIFIED THAT MD WISHES TO SEE HER PRIOR TO NEW MEDICATION ORDERS
--- NOTE | 2018-10-28 15:03 | NUR ---
PT UP TO BEDSIDE COMMODE, STS "IF THAT DR DOESN'T HURRY UP I'M LEAVING I CAN DO THE SAME THING AT HOME"
--- NOTE | 2018-10-28 17:59 | NUR ---
SHIFT NOTE PT PRESENTED TO ER TODAY WITH C/O RUQ PAIN, CP, BLACK STOOLS, AND N/V. PT WITH NO ACTIVE VOMTTING SINCE ARRIVAL STS "I JUST DRY HEAVE". UPON ARRIVAL PT IMMEDIATELY STS "I NEED PAIN MEDICATION NOW" WHEN EDUCATED ABOUT ADMIT PROCESS AND BLOOD INFUSION PT STS "I ALWAYS GET TREATED LIKE THIS HERE, THAT DR ISN'T VERY NICE TO ME AND NEVER WANTS TO GIVE PAIN MEDICATIONS". PT ARRIVED TO UNIT WITH FIRST UNIT OF FFP INFUSING. PT STS "I NEED SOMETHING FOR PAIN, I'M GOING TO NEED PHENERGAN, I'M GOING TO NEED SOMETHING TO SLEEP, AND I AM GOING TO NEED SOMETHING FOR ANXIETY" DR PUENTES IS CONSULTED ABOUT PT'S NEEDS, DR PUENTES WAS IN TO SEE PT SHORTLY AFTER CALLING TO CONSULT WITH HER. PT RECIEVED A TOTAL OF 2 UNITS OF FFP, 2 UNITS OF PRBC, 4MG ZOFRAN, AND PROTONIX BOLUS. PT RESTING WELL IN BED, INTERMITTENTLY WATCHING TV AND TALKING ON PHONE. VSS.
--- NOTE | 2018-10-28 19:58 | NUR ---
ASSUMED CARE OF PATIENT AT APPROXIMATELY 1900 FROM AVIVA Domingo RN. PATIENT ALERT AND ORIENTED X4; WEAK; SBA TO BEDSIDE COMMODE; REPORTS SOB FOR PAST FEW WEEKS; REPORTS CHEST PAIN FOR PAST THREE WEEKS; REPORTS ABDOMINAL PAIN FOR MONTHS; PATIENT REFUSES OTHER PAIN INTERVENTIONS OTHER THAN PAIN MEDICATIONS. PATIENT DENIES NUMBNESS, TINGLING, DIZZINESS AND NAUSEA. PATIENT REPORTS FALLING RECENTLY AT HOME TWICE. 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 NSR ON TELE; OXYEGN SATURATION ABOEV 90% ON ROOM AIR. 2 UNIT OF RBC INFUSING CURRENTLY INTO MEDIPORT; PROTONIX GTT. SCDS IN PLACE. PATIENT CURRENTLY RESTING IN BED; CALL LIGHT IN REACH; BED IN LOWEST POSISTION; BED ALARM ON; WILL CONTINUE TO MONITOR AND ASSESS UNTIL END OF SHIFT.
[2018-10-28 21:19] LABS: Hemoglobin 8.5 g/dL (11.5-16.0)
--- NOTE | 2018-10-28 22:23 | NUR ---
DR. CONLEY BESIDE WITH PATIENT DISCUSSING TREATMENT PLAN. PATIENT TO BE CLEAR LIQUID DIET UNTIL 0900 THEN ICE CHIPS AND WATER ONLY UNTIL 1500 THEN NPO FOR EGD. PATIENT REQUESTED HER HOME DOSE OF PHENERGAN INSTEAD OF ZOFRAN; ORDERS RECIEVED. PATIENT REPORTS ZOFRAN DOESNT HELP. PATIENT'S H/H UP AFTER 2 UNITS OF RBC AND FFP; NO ORDERS FOR MORE BLOOD PRODUCTS RECIEVED.
[2018-10-29 03:48] LABS: BASOPHILS ABSOLUTE AUTO 0.02 K/mm3 (0.00-0.23); BASOPHILS PERCENT AUTO 0 % (0-2); EOSINOPHILS ABSOLUTE AUTO 0.15 K/mm3 (0.00-0.68); EOSINOPHILS PERCENT AUTO 2 % (0-6); Hemoglobin 8.6 g/dL (11.5-16.0); IMMATURE GRAN ABSOLUTE AUTO 0.05 K/mm3 (0.00-0.10); IMMATURE GRAN PERCENT AUTO 1 % (0-1); LYMPHOCYTES PERCENT AUTO 24 % (21-46); MONOCYTES ABSOLUTE AUTO 0.78 K/mm3 (0.16-1.47); MONOCYTES PERCENT AUTO 10 % (4-13); Mean Corpuscular HGB 29.3 pg (26.0-34.0); Mean Corpuscular HGB Conc 31.9 g/dL (31.5-36.5); Mean Platelet Volume 9.1 fL (9.1-12.4); NEUTROPHILS ABSOLUTE AUTO 4.99 K/mm3 (1.96-9.15); NEUTROPHILS PERCENT AUTO 63 % (41-73); NRBC ABSOLUTE 0.02 K/mm3 (0.00-0.02); NRBC Auto 0.3 /100 WBC (0.0-0.2); Platelet Count 278 K/mm3 (150-400); RDW Standard Deviation 56.7 fL (35.1-46.3); Red Blood Cell Count 2.94 M/mm3 (3.80-5.20); White Blood Cell Count 7.89 K/mm3 (4.00-11.30)
[2018-10-29 03:54] LABS: Mean Corpuscular Volume 92 fL (80-100)
[2018-10-29 04:02] LABS: International Normalized Ratio 1.99; Prothrombin Time Results 19.8 Sec (9.7-11.5)
[2018-10-29 04:03] LABS: Anion Gap 4 mmol/L (6-16); Blood Urea Nitrogen 22 mg/dL (8-24); Bun/Creatinine Ratio 27.4 (12.0-20.0); CO2, Blood 28 mmol/L (21-32); Calcium, Blood 7.5 mg/dL (8.5-10.1); Chloride, Blood 108 mmol/L (98-108); Glomerular Filtration Rate >60 (60-); Glucose, Blood 87 mg/dL (70-99); Potassium, Blood 3.6 mmol/L (3.5-5.5); Sodium, Blood 140 mmol/L (136-145)
--- NOTE | 2018-10-29 06:05 | NUR ---
PATIENT REPORTS PHENEGAN MORE EFFECTIVE IN REDUCING NAUSEA. MEDICATED FOR PAIN T/O NIGHT. PATIENT SLEPT ABOUT FOUR HOURS OFF AND ON; LUDY REPORTS THAT SHE DOESNT SLEEP WELL AT NIGHT. H/H IMPROVING. VSS. WILL CONTINUE TO MONITOR AND ASSESS UNTIL END OF SHIFT.
--- NOTE | 2018-10-29 09:07 | NUR ---
Echocardiogram completed.
--- NOTE | 2018-10-29 12:31 | NUR ---
PT DOING OK, DID MEDICATE HER FOR NAUSIA SHE WAS DRY HEAVING. DR. CASON SAW HER, WAITING ON EGD THIS EARLY EVENING. CALL LIGHT IN REACH.
--- NOTE | 2018-10-29 16:22 | NUR ---
pt left for egd via [place].
--- NOTE | 2018-10-29 16:35 | NUR ---
History, Chart, Medications and Allergies reviewed before start of procedure. Lungs clear T/O to Auscultation. Pre-Op teaching done. Pt verbalizes understanding. Patient confirms NPO status and agrees with scheduled surgery. CALL LIGHT IN PLACE, WARM BLANKETS PROVIDED.
--- NOTE | 2018-10-29 18:28 | NUR ---
10/29/18 1828 Norma Houser PATIENT DETERMINED TO BE ASA APPROPRIATE FOR PROPOFOL SEDATION PRIOR TO START OF PROCEDURE BY DR. CONLEY. 3-LEAD EKG REVIEWED WITH PHYSICIAN PRIOR TO START OF PROCEDURE. PATIENT CONFIRMS NPO STATUS AND AGREES WITH SCHEDULED PROCEDURE. History, Chart, Medications and Allergies reviewed before start of procedure. MONITOR INTACT WITH CONTINUOUS PULSE OXIMETRY AND INTERMITTENT BP. O2 VIA N/C INTACT THROUGHOUT SEDATION/PROCEDURE VIA POM AT 10 L. Bite Block Placed IMMEDIATELY PRESEDATION.
--- NOTE | 2018-10-29 19:03 | NUR ---
pt returned to room, asking for pain meds. she recieved on clip per report. reported off to night RN. call light in reach.
--- NOTE | 2018-10-29 21:58 | NUR ---
ASSUMED CARE OF PATIENT AT APPROXIMATELY 1900 FROM ANAMARIA Rolon RN. PATIENT ALERT AND ORIENTED X4; WEAK; SBA TO BEDSIDE COMMODE; PATIENT REPORTS CHRONIC ABDOMINAL PAIN AND CHEST PAIN; PATIENT ALSO REPORTS SOB FOR PAST FEW WEEKS; REPORTS CHEST PAIN FOR PAST THREE WEEKS; REPORTS ABDOMINAL PAIN FOR MONTHS; PATIENT REFUSES OTHER PAIN INTERVENTIONS OTHER THAN PAIN MEDICATIONS. PATIENT DENIES NUMBNESS, TINGLING AND DIZZINESS. PATIENT REPORTS NAUSEA UPON ARRIVAL BACK TO UNIT FROM EGD. NSR ON TELE; OXYEGN SATURATION ABOEV 90% ON ROOM AIR. MEDIPORT KVO; PROTONIX GTT INTO LEFT PG. SCDS IN PLACE. PATIENT HAS BEEN SLEEPING OFF AND ON; PATIENT HAS MORE OF AN APPETITE AFTER EGD. REQUESTED MILK SHAKE. PATIENT CURRENTLY RESTING IN BED; CALL LIGHT IN REACH; BED IN LOWEST POSISTION; BED ALARM ON; WILL CONTINUE TO MONITOR AND ASSESS UNTIL END OF SHIFT.
--- NOTE | 2018-10-30 06:40 | NUR ---
PATIENT SLEPT ABOUT FOUR HOURS TOTAL; DID NOT TAKE PRN RESTORIL; REPORTS MAKES HER FEEL FUNNY. REQUESTED MORPHINE AND PHENERGAN REGULARLY. VSS. NO OTHER ACUTE CHANGES TO REPORT. WILL CONTINUE TO MONITOR AND ASSESS UNTIL END OF SHIFT.
[2018-10-30 07:35] LABS: BASOPHILS ABSOLUTE AUTO 0.01 K/mm3 (0.00-0.23); BASOPHILS PERCENT AUTO 0 % (0-2); EOSINOPHILS ABSOLUTE AUTO 0.16 K/mm3 (0.00-0.68); EOSINOPHILS PERCENT AUTO 4 % (0-6); Hematocrit 25.2 % (33.0-51.0); IMMATURE GRAN ABSOLUTE AUTO 0.03 K/mm3 (0.00-0.10); IMMATURE GRAN PERCENT AUTO 1 % (0-1); LYMPHOCYTES PERCENT AUTO 33 % (21-46); MONOCYTES PERCENT AUTO 14 % (4-13); Mean Corpuscular HGB 29.2 pg (26.0-34.0); Mean Corpuscular HGB Conc 31.7 g/dL (31.5-36.5); Mean Corpuscular Volume 92 fL (80-100); NEUTROPHILS ABSOLUTE AUTO 1.77 K/mm3 (1.96-9.15); NEUTROPHILS PERCENT AUTO 48 % (41-73); Platelet Count 228 K/mm3 (150-400); RDW Coefficient Variation 16.9 % (11.7-14.2); RDW Standard Deviation 55.8 fL (35.1-46.3); Red Blood Cell Count 2.74 M/mm3 (3.80-5.20); White Blood Cell Count 3.67 K/mm3 (4.00-11.30)
[2018-10-30] MEDS ORDERED: SUCR1 PO (11:28)
[2018-10-30] MEDS ORDERED: ALPR.25 PO (11:28)
--- NOTE | 2018-10-30 12:15 | NUR ---
pt requesting pain meds half an hr before they are do, states she wants to load up before she goes home. explained to her it is better to wean down before going home, but is insistant she wants it now. morphine was given. she is eating lunch. will be discharged today. call light in reach.
--- NOTE | 2018-10-30 16:00 | NUR ---
pt has been discharged to home, mediport was deacessed, power glide was removed intact. went over discharge with her, she verbalized understanding. she has a hard script for xanax, this was handed to her, she put it in her bag. she has all her belongings, left via wheelchair with microelectronics assembler in attendence.
== END 2018-10-30 16:01 | disposition home or self-care (01) | DRG 378 ==
LOC: ER 10:05 → PCU 12:39
PROVIDERS: Emergency Medicine; Internal Medicine Gastroenterology; ADMIT Family Medicine
PROC: 30233K1 Transfusion of Nonautologous Frozen Plasma into Peripheral Vein, Percutaneous Approach (ICD-10-PCS; principal; 2018-10-28)
PROC: 30233N1 Transfusion of Nonautologous Red Blood Cells into Peripheral Vein, Percutaneous Approach (ICD-10-PCS; 2018-10-28)
PROC: 0W3P8ZZ Control Bleeding in Gastrointestinal Tract, Via Natural or Artificial Opening Endoscopic (ICD-10-PCS; 2018-10-29)
DX: K25.4 Chronic or unspecified gastric ulcer with hemorrhage (principal); I42.9 Cardiomyopathy, unspecified; K91.2 Postsurgical malabsorption, not elsewhere classified; D62 Acute posthemorrhagic anemia; Z79.01 Long term (current) use of anticoagulants; J44.9 Chronic obstructive pulmonary disease, unspecified; E78.00 Pure hypercholesterolemia, unspecified; F41.8 Other specified anxiety disorders; F43.10 Post-traumatic stress disorder, unspecified; Z90.3 Acquired absence of stomach [part of]; Z87.891 Personal history of nicotine dependence; Z98.84 Bariatric surgery status; Z79.02 Long term (current) use of antithrombotics/antiplatelets; G47.00 Insomnia, unspecified; I73.9 Peripheral vascular disease, unspecified; K20.8 Other esophagitis; N18.2 Chronic kidney disease, stage 2 (mild); I12.9 Hypertensive chronic kidney disease with stage 1 through stage 4 chronic kidney disease, or unspecified chronic kidney disease
CPT/HCPCS: 36430; 71045; 80048; 80053; 81001; 82272; 82607; 82728; 82746; 83540; 83550; 83690; 84484; 85014; 85018; 85025; 85610; 86850; 86870; 86900; 86901; 86902; 86922; 93005; 93010; 93306; 93880; 96374; 96375; 99285-25; C1751; C9113; G0480; J2270; J2405; J2550; J2704; J7030; J7050; J7120; P9016; P9059

== ENCOUNTER 2018-11-21 21:27 | Inpatient (IN) | payer OTHER ==
[~2018-11-21] VITALS: Ht 157.5 cm; Wt 52.8 kg
[~2018-11-21 21:27] MED LIST changes: +ALPR.25 PO
[2018-11-21 21:47] LABS: BASOPHILS ABSOLUTE AUTO 0.05 K/mm3 (0.00-0.23); BASOPHILS PERCENT AUTO 0 % (0-2); EOSINOPHILS ABSOLUTE AUTO 0.24 K/mm3 (0.00-0.68); EOSINOPHILS PERCENT AUTO 1 % (0-6); Hematocrit 25.1 % (33.0-51.0); Hemoglobin 7.6 g/dL (11.5-16.0); IMMATURE GRAN ABSOLUTE AUTO 0.19 K/mm3 (0.00-0.10); IMMATURE GRAN PERCENT AUTO 1 % (0-1); LYMPHOCYTES ABSOLUTE AUTO 3.91 K/mm3 (0.84-5.20); LYMPHOCYTES PERCENT AUTO 22 % (21-46); MONOCYTES ABSOLUTE AUTO 1.79 K/mm3 (0.16-1.47); MONOCYTES PERCENT AUTO 10 % (4-13); Mean Corpuscular HGB 26.9 pg (26.0-34.0); Mean Corpuscular HGB Conc 30.3 g/dL (31.5-36.5); Mean Corpuscular Volume 89 fL (80-100); Mean Platelet Volume 9.5 fL (9.1-12.4); NEUTROPHILS ABSOLUTE AUTO 11.84 K/mm3 (1.96-9.15); NEUTROPHILS PERCENT AUTO 66 % (41-73); NRBC ABSOLUTE 0.03 K/mm3 (0.00-0.02); NRBC Auto 0.2 /100 WBC (0.0-0.2); Platelet Count 524 K/mm3 (150-400); RDW Coefficient Variation 15.1 % (11.7-14.2); RDW Standard Deviation 48.7 fL (35.1-46.3); Red Blood Cell Count 2.83 M/mm3 (3.80-5.20); White Blood Cell Count 18.02 K/mm3 (4.00-11.30)
[2018-11-21 21:55] LABS: Calcium, Ionized (POC) 1.03 mmol/L (1.10-1.46); Chloride (POC) 104 mmol/L (98-108); Creatinine (POC) 1.3 mg/dL (0.6-1.0); Glucose (ISTAT POC) 182 mg/dL (70-99); Hemoglobin (POC) 7.8 g/dL (12.0-16.0); Potassium (POC) 4.1 mmol/L (3.5-5.5); Sodium (POC) 137 mmol/L (135-148); Total CO2 (POC) 22 mmol/L (21-32)
[2018-11-21 22:06] LABS: Albumin, Blood 2.6 g/dL (3.4-5.0); Albumin/Globulin Ratio 0.8 (0.8-1.8); Bilirubin, Total 0.2 mg/dL (0.1-1.0); Bun/Creatinine Ratio 20.3 (12.0-20.0); Calcium, Blood 7.7 mg/dL (8.5-10.1); Creatinine, Blood 1.23 mg/dL (0.40-1.00); Globulin, Blood 3.3 g/dL (2.2-4.0); Potassium, Blood 3.9 mmol/L (3.5-5.5); Total Protein, Blood 5.9 g/dL (6.4-8.2)
[2018-11-21 22:43] LABS: Prothrombin Time Results 45.7 Sec (9.7-11.5)
[2018-11-21 22:44] LABS: International Normalized Ratio 4.99
[2018-11-22 01:06] LABS: Source, Urine Catheter
[2018-11-22 01:15] LABS: Bilirubin, Urine Neg (Neg); Blood, Urine Neg (Neg); Glucose Qualitative, Urine Neg (Neg); Ketones, Urine Neg (Neg); Leukocyte Esterase, Urine Neg (Neg); Nitrite, Urine Neg (Neg); Protein, Urine Neg (Neg); Specific Gravity, Urine 1.015 (1.003-1.022); Urobilinogen, Urine NORM (Normal)
[2018-11-22 01:19] LABS: Appearance, Urine Clear (Clear); Color, Urine Yellow (P-Yellow)
[2018-11-22] MEDS ORDERED: LEVSOD50 PO (01:32)
--- NOTE | 2018-11-22 02:10 | NUR ---
Admission/[facility] of Care: Patient arrived to unit at 2315hr via stretcher, accompanied by ED nurse. Patient alert and oriented x4. vomiting small amounts of bright red blood upon arrival (approx 100ml total), able to maintain airway without difficulty. ED RN also reported approx 600ml hematemesis just before leaving ED. Hearth rhythm showed sinus tach in the 130's, systolic BP 90's-120 and stable. 2nd unit of plasma infusing upon arrival, 3rd & 4th units infused via pressure bag shortly after. Dr. Small to room approx 0000hr. Received orders for phenergan x1, zofran 4mg q4hr, H+H qhr following infusion of previously ordered (Dr. Cabral) x2 units PRBC's. Discussed IV fluids with Dr. Small, and informed him a total of 3L NS bolus ordered, 2nd infusing at that time. Received orders to only infuse x2L total NS bolus and then give NS at 100ml/hr maintenance fluid, r/t hx of cardiomyopathy. Medi-port to rt upper chest (accessed in ED), patent and intact infusing without difficulty. Laguna cath placed per urinary retention, draining clear yellow urine, sample sent to lab per protocol. Patient remains stable at this time. HR decreased to low 100's, BP stable. No further vomiting since approx 0015hr, and nausea has greatly improved. 1st of 2 units PRBC's infusing at this time. No s/s of infusion reaction, or fluid overload noted. Will continue to monitor for pain, comfort, safety. Call light in reach, makes needs known.
--- NOTE | 2018-11-22 06:40 | NUR ---
Shift Summary: Patient slept on/off throughout remainder of shift. Remains A/O x4. VSS remained stable. No further s/s of active GI bleed, no further N/V, hematemesis. 2nd unit of PRBC's infusing at this time and nearly complete, will draw repeat lab values 1/2hr after unit is completed. C/o ABD pain has improved, but patient requested prn fentanyl x3, effective to manage pain. Medi-port remains patent and intact. Peripheral IV to rt AC remains patent and intact. Laguna continues to drain clear yellow urine, approx 500ml output throughout remainder of shift. Call light in reach, makes needs known, adjust own position in bed. Will continue to monitor until report to day shift RN.
[2018-11-22 07:56] LABS: BASOPHILS ABSOLUTE AUTO 0.01 K/mm3 (0.00-0.23); BASOPHILS PERCENT AUTO 0 % (0-2); EOSINOPHILS PERCENT AUTO 0 % (0-6); Hematocrit 20.3 % (33.0-51.0); Hemoglobin 6.6 g/dL (11.5-16.0); IMMATURE GRAN ABSOLUTE AUTO 0.03 K/mm3 (0.00-0.10); IMMATURE GRAN PERCENT AUTO 0 % (0-1); LYMPHOCYTES ABSOLUTE AUTO 1.05 K/mm3 (0.84-5.20); LYMPHOCYTES PERCENT AUTO 15 % (21-46); MONOCYTES PERCENT AUTO 10 % (4-13); Mean Corpuscular HGB 27.5 pg (26.0-34.0); Mean Corpuscular HGB Conc 32.5 g/dL (31.5-36.5); Mean Platelet Volume 9.4 fL (9.1-12.4); NEUTROPHILS ABSOLUTE AUTO 5.29 K/mm3 (1.96-9.15); NEUTROPHILS PERCENT AUTO 75 % (41-73); Platelet Count 168 K/mm3 (150-400); RDW Coefficient Variation 14.1 % (11.7-14.2); RDW Standard Deviation 43.6 fL (35.1-46.3); White Blood Cell Count 7.08 K/mm3 (4.00-11.30)
[2018-11-22 07:57] LABS: Mean Corpuscular Volume 85 fL (80-100)
--- NOTE | 2018-11-22 08:00 | NUR ---
INITIAL ASSESSMENT PATIENT RESTING QUIETLY IN BED UPON ENTERING ROOM. PATIENT ALERT AND ORIENTED X 4, AFEBRILE. PATIENT CALM, COOPERATIVE, WITH FLAT AFFECT. PATIENT ILL APPEARING. PATIENT WEAK BUT ABLE TO MOVE ALL EXTREMITIES. PATIENT REPORTS THAT SHE HAS N/T IN L LEG FROM RECENT ANGIOGRAM. PATIENT COMPLAINS OF PAIN IN ABDOMEN. PRN PAIN MEDICATIONS BEING GIVEN ORDERED. PATIENT SATTING 90% AND GREATER ON RA. EXPIRATORY WHEEZE NOTED IN R UPPER LUNG LOBES. ALL OTHER LOBES CLEAR ON AUSCULTATION. PATIENT IN SR TO ST, HR 90S TO LOW 100S. SBP IN THE 160S. ABDOMEN MILDLY DISTENDED, FIRM, TENDER, WITH HYPOACTIVE BS. PATIENT COMPLAINS OF NAUSEA. ANTIEMETICS BEING GIVEN ORDERED. PATIENT NPO FOR PLANNED EGD THIS AM. HARRISON IN PLACE FOR COMPLAINTS OF RETENTION. HARRISON DRAINING ORANGE COLORED URINE. SKIN IS PALE AND DRY, OTHERWISE APPEARS C/D/I. NS INFUSING AT 100 MLS/ HOUR, PROTONIX INFUSING AT 10 MLS/ HOUR. BED LOW, CALL LIGHT IN REACH. WILL CONTINUE TO MONITOR PATIENT FREQUENTLY THROUGHOUT SHIFT.
[2018-11-22 08:13] LABS: International Normalized Ratio 1.1
[2018-11-22 08:25] LABS: Anion Gap 5 mmol/L (6-16); Blood Urea Nitrogen 22 mg/dL (8-24); Bun/Creatinine Ratio 23.5 (12.0-20.0); CO2, Blood 30 mmol/L (21-32); Calcium, Blood 6.6 mg/dL (8.5-10.1); Chloride, Blood 108 mmol/L (98-108); Creatinine, Blood 0.94 mg/dL (0.40-1.00); Glomerular Filtration Rate >60 (60-); Glucose, Blood 111 mg/dL (70-99); Potassium, Blood 3.8 mmol/L (3.5-5.5); Sodium, Blood 143 mmol/L (136-145)
[2018-11-22 08:57] LABS: Prothrombin Time Results 11.6 Sec (9.7-11.5)
--- NOTE | 2018-11-22 09:06 | NUR ---
SPOKE TO DR. CONLEY TWICE THIS AM. INFORMED OF H AND H OF 6.6, 20.3. INFORMED THAT PATIENT HAS CONTINUED NAUSEA DESPITE PRN ZOFRAN ADMINISTRATION. ORDER FOR PRN PHENERGAN RECEIVED.
--- NOTE | 2018-11-22 10:03 | NUR ---
DR. CONLEY INFORMED OF PATIENT'S HTN TODAY. INFORMED THAT SBP HAS BEEN RANGING FROM 160S TO 180S. INFORMED THAT PATIENT TAKES BP MEDS AT HOME AND HAS NOT BEEN RECEIVING HERE. STATES THAT HE WILL ORDER PATIENT'S HOME MEDICATIONS.
--- NOTE | 2018-11-22 10:40 | NUR ---
ISTRATE HERE TO SEE PATIENT. UPDTATED ON PATIENT STATUS. INFORMED THAT PATIENT HAS BEEN HYPERTENSIVE THIS AM WITH SBPS FROM 160S TO 200. INFORMED THAT DR. CONLEY ORDERED FOR PATIENT'S HOME BP MEDICATIONS. INFORMED THAT PATIENT REMAINS NAUSEOUS DESPITE RECEIVING PRN ZOFRAN IV AND PRN PHENERGAN PO. ORDERS OBTAINED.
--- NOTE | 2018-11-22 12:00 | NUR ---
PATIENT RESTING QUIETLY IN BED. PATIENT AFEBRILE. PATIENT CONTINUES TO BE GIVEN PRN PAIN MEDIATIONS FOR CONTINUED COMPLAINT OF ABDOMINAL PAIN. PATIENT IN ST, HR LOW 100S. SBP IN THE 160S. PATIENT HAD 800 CC GIULIA RED EMESIS AROUND 1100. PATIENT TO BE SCOPED SOON. NO OTHER ACUTE CHANGES TO NOTE ON AT THIS TIME. WILL CONTINUE TO MONITOR.
--- NOTE | 2018-11-22 12:11 | NUR ---
TEAM HERE TO SET UP FOR SCOPE. DR. CONLEY IN ROOM. DOCTOR INFORMED THAT PATIENT VOMITED 800 CC GIULIA RED BLOOD JUST BEFORE 1100.
--- NOTE | 2018-11-22 12:50 | NUR ---
11/22/18 3430 Norma Houser PATIENT DETERMINED TO BE ASA APPROPRIATE FOR PROPOFOL SEDATION PRIOR TO START OF PROCEDURE BY DR. CONLEY. 3-LEAD EKG REVIEWED WITH PHYSICIAN PRIOR TO START OF PROCEDURE. PATIENT CONFIRMS NPO STATUS AND AGREES WITH SCHEDULED PROCEDURE. History, Chart, Medications and Allergies reviewed before start of procedure. Patient confirms NPO status and agrees with scheduled surgery. MONITOR INTACT WITH CONTINUOUS PULSE OXIMETRY AND INTERMITTENT BP. O2 VIA N/C INTACT THROUGHOUT SEDATION/PROCEDURE, 2L. Bite Block Placed IMMEDIATELY PRESEDATION.
--- NOTE | 2018-11-22 16:00 | NUR ---
PATIENT RESTING QUIETLY. PATIENT CONTINUES TO BE MEDICATED PER COMPLAINTS OF NAUSEA AND PAIN IN ABDOMEN/ EPIGASTRIC AREA. PATIENT IN SR, HR 80S TO 90S. SBP IN THE 140S. PATIENT HAS NOT HAD BM AND HAS NOT HAD ANYMORE HEMATEMESIS SINCE 1100 THIS AM. NO OTHER ACUTE CHANGES TO NOTE ON AT THIS TIME. WILL CONTINUE TO MONITOR.
[2018-11-22 16:34] LABS: Hematocrit 27.4 % (33.0-51.0); Hemoglobin 9.2 g/dL (11.5-16.0)
--- NOTE | 2018-11-22 18:15 | NUR ---
SHIFT SUMMARY PATIENT HAS REMAINED ALERT AND ORIENTED, CALM AND COOOPERATIVE. PATIENT HAD TMAX OF 99.1 DEGREES FAHRENHEIT. PATIENT REMAINED WEAK BUT ABLE TO REPOSITION SELF IN BED. PATIENT GIVEN PRN FENTANYL FOR CONTINUED COMPLAINTS OF ABD/ EPIGASTRIC PAIN. PATIENT REMAINED SATTING 90% AND GREATER ON RA. PATIENT IN SR TO ST, HR RANGED FROM 80S TO 1-TEENS. SBP RANGED FROM LOW 100S TO 200. PATIENT RESTARTED ON HOME BP MEDS THIS AM. PRN HYDRALAZINE GIVEN OT. PATIENT GIVEN PRN ANTIEMETICS FOR CONTINUED NAUSEA T/O SHIFT. PATIENT HAD 800 CC HEMATEMESIS AROUND 1100 THIS AM BUT HAS NOT VOMITED SINCE. PATIENT CURRENTLY ON WATER AND ICE CHIPS ONLY. PATIENT HAS NOT HAD BM THIS SHIFT. HARRISON IN PLACE DRAINING DARK ORANGE COLORED URINE. HARRISON PLACED PATIENT COMPLAINED OF URINARY RETENTION AT HOME AND BACK HURTING PRIOR TO HARRISON INSERT. NO CHANGE IN SKIN. NS REMAINS INFUSING AT 100 MLS/ HOUR AND PROTONIX AT 10 MLS/ HOUR. PATIENT HAD 2 UNITS PRBCS THIS SHIFT. PATIENT SCOPED BY DR. CONLEY. DOCTOR FOUND VISIBLE VESSEL/ ESOPHAGITIS AND DEPLOYED 4 CLIPS. PATIENT HAS NO COMPLAINTS AT THIS TIME. BED LOW, CALL LIGHT IN REACH. WILL BE GIVING REPORT TO ONCOMING LIQUID FLOOR AND WALL APPLIER NURSE SHORTLY.
--- NOTE | 2018-11-22 20:30 | NUR ---
[place] of Care: Care assumed at 1900hr. Patient alert and oriented x4, VSS, denies dyspnea or SOB, O2-98-100% on RA. C/o ABD pain, effectively managed with prn fentanyl 25mcg. Protonix gtt infusing without difficulty. C/o mild nausea, prn Zofran given with good effect. Patient also tolerating small sips of clear liquids without difficulty. Peripheral IV to rt AC patent and intact. Med-port to rt upper chest patent and intact infusing NS at 100ml/hr. Laguna cath patent and intact, draining clear yellow urine. Call placed to Dr. Guan per patient's c/o of insomnia and mild anxiety. Patient stated she normally takes Klonopin TID at home. Received order from Dr. Guan for PO Klonopin 0.5mg prn TID. Adjust own position in bed. Makes needs known, call light in reach. Will continue to monitor for pain, safety, comfort.
[2018-11-22 23:50] LABS: Hematocrit 28.4 % (33.0-51.0); Hemoglobin 9.7 g/dL (11.5-16.0)
[2018-11-23 04:29] LABS: BASOPHILS ABSOLUTE AUTO 0.01 K/mm3 (0.00-0.23); BASOPHILS PERCENT AUTO 0 % (0-2); EOSINOPHILS ABSOLUTE AUTO 0.02 K/mm3 (0.00-0.68); EOSINOPHILS PERCENT AUTO 0 % (0-6); Hematocrit 24.5 % (33.0-51.0); Hemoglobin 8.3 g/dL (11.5-16.0); IMMATURE GRAN ABSOLUTE AUTO 0.06 K/mm3 (0.00-0.10); IMMATURE GRAN PERCENT AUTO 1 % (0-1); LYMPHOCYTES ABSOLUTE AUTO 0.89 K/mm3 (0.84-5.20); LYMPHOCYTES PERCENT AUTO 13 % (21-46); MONOCYTES ABSOLUTE AUTO 0.87 K/mm3 (0.16-1.47); MONOCYTES PERCENT AUTO 12 % (4-13); Mean Corpuscular HGB 29.4 pg (26.0-34.0); Mean Corpuscular HGB Conc 33.9 g/dL (31.5-36.5); Mean Corpuscular Volume 87 fL (80-100); Mean Platelet Volume 8.7 fL (9.1-12.4); NEUTROPHILS ABSOLUTE AUTO 5.21 K/mm3 (1.96-9.15); NEUTROPHILS PERCENT AUTO 74 % (41-73); Platelet Count 170 K/mm3 (150-400); RDW Coefficient Variation 14.6 % (11.7-14.2); RDW Standard Deviation 46.3 fL (35.1-46.3); Red Blood Cell Count 2.82 M/mm3 (3.80-5.20); White Blood Cell Count 7.06 K/mm3 (4.00-11.30)
[2018-11-23 04:53] LABS: Alanine Aminotransfer (ALT/SGP 17 U/L (12-78); Albumin, Blood 2.1 g/dL (3.4-5.0); Albumin/Globulin Ratio 0.8 (0.8-1.8); Alk Phos 52 U/L (50-136); Anion Gap 4 mmol/L (6-16); Aspartate Aminotrans (AST/SGOT 18 U/L (12-37); Bilirubin, Total 0.7 mg/dL (0.1-1.0); Blood Urea Nitrogen 28 mg/dL (8-24); CO2, Blood 28 mmol/L (21-32); Calcium, Blood 7.2 mg/dL (8.5-10.1); Chloride, Blood 110 mmol/L (98-108); Creatinine, Blood 0.74 mg/dL (0.40-1.00); Globulin, Blood 2.5 g/dL (2.2-4.0); Glomerular Filtration Rate >60 (60-); Glucose, Blood 105 mg/dL (70-99); Potassium, Blood 3.7 mmol/L (3.5-5.5); Sodium, Blood 142 mmol/L (136-145); Total Protein, Blood 4.6 g/dL (6.4-8.2)
--- NOTE | 2018-11-23 06:43 | NUR ---
Shift Summary: Patient slept on/off throughout shift. Remains alert and oriented x4. X1 prn hydralazine given early in shift per systolic BP 170's-190's with good effect noted. Patient request prn fentanyl q2-3hr, 25mcg doses effective to manage pain. Spoke with patient early in shift about contacted Dr. Small to request GI cocktail for stomach/ABD pain. Patient refused this suggestion and stated she would like to wait until morning before taking PO medications. X1 bout of N/V this shift, vomited approx 75-100ml of blood tinged bile, with small blood clots. At this time HR increased to 160's-180's. PRN phenergan and zofran given with good effect. HR then decreased back to 90's-low 100's. Laguna cath remains patent and intact, 2400ml light yellow clear urine this shift. Adjust own position in bed, makes needs known. Will continue to monitor until report to day shift RN.
--- NOTE | 2018-11-23 08:41 | NUR ---
CARE ASSUMED, PT ALERT AND ORIENTED X4, APPROPRIATE AND COOPERATIVE. SBP 140-160'S, AM MEDICATIONS ADMNISTERED, WILL CONTINUE TO MONITOR VS. ABD FIRM, DIFFUSELY TENDER TO PALPATION, PT REPORTS STABBING MID EPIGASTRIC PAIN, BT ACTIVE X4, NO EMESIS OR STOOLS THIS MORNING, MEDICATED FOR NAUSEA AND PAIN. PT TOLERATING CLEAR LIQUIDS WITH SOME NAUSEA BUT NO EMESIS. PROTONIX AND NS INFUSING PER ORDERS MEDIPORT TO RIGHT CHEST WNL, SCD'S IN PLACE.
--- NOTE | 2018-11-23 09:12 | NUR ---
PT MEDICATED FOR HTN WITH HYDRALAZINE FOR SBP 180-190'S, ALSO GIVEN BENADRYL FOR C/O PREVIOUS EYE SWELLING/ITCHING THAT PT BELIEVES IS RELATED TO HYDRALAZINE. EYES DO NOT APPEAR SWOLLEN AT THIS TIME, PT DENIES CURRENT ITCHING.
--- NOTE | 2018-11-23 10:49 | NUR ---
BP RESPONDED WELL TO HYDRALAZINE, PT HAD NO C/O EYE ITCHING/SWELLING. DR. SIERRA AT BEDSIDE, NEW ORDERS RECEIVED. PT DENIES NEEDS AT THIS TIME. HR 105 SINUS, BP 144/81, OTHER VSS.
--- NOTE | 2018-11-23 12:01 | NUR ---
PT MEDICATED FOR PAIN AND NAUSEA, THEN UP TO CHAIR FOR BEDSIDE BATH AND LUNCH. PT TEARFUL, STATING THAT SHE SHOULD BE HOME TAKING CARE OF HER , HE IS MAD AT HER FOR BEING SICK AND AWAY FROM HOME. PT REASSURED, TOLD THAT HER HEALTH IS IMPORTANT WELL AND THAT SHE NEEDS TO BE TAKEN CARE OF BEFORE SHE CAN HELP HIM. WILL REQUEST CONSULT FROM PASTORAL CARE FOR MORAL SUPPORT AND REASSURANCE.
--- NOTE | 2018-11-23 16:35 | NUR ---
1400: PT UP TO BSC FOR A MED LOOSE BLACK BM, NO GIULIA BLOOD NOTED. VSS AT THIS TIME. 1630: PASTORAL CARE IN TO SEE PT. PT MEDICATED FOR PAIN, THEN FOR BP FOR SBP 180'S, PT DENIES CHEST PAIN/PRESSURE, REPORTS INTERMITTENT HEADACHES. PT ASSISTED TO TOILET TO VOID, IS VOIDING WITHOUT DIFFICULTY SINCE HARRISON CATH WAS DC'D. NO EMESIS SO FAR THIS SHIFT. BP RESPONDS WELL TO HYDRALAZINE, NO EYE SWELLING/ITCHING WHEN ADMINISTERED ALONG WITH BENADRYL.
--- NOTE | 2018-11-23 16:47 | NUR ---
Spiritual Care initial note: Mary appears anxious and tells me this is a chronic problem. She told me of numerous home stressors. He spouse is very demanding and Mary takes care of "everything" for her and the household. She is basically homebound and admits she can find no richi in her life right now. She was very open with me and allowed gentle college counselor and prayer. She feels tired of being ill. Mary will benefit from continued spiritual direction/college counselor. I will continue to provide these in coming days as schedule permits.
--- NOTE | 2018-11-23 18:23 | NUR ---
1820: PT SITTING IN BED WATCHING TV, REPORTS 8/10 EPIGASTRIC PAIN, MEDICATED PER ORDERS. BP REMAINS 140'S/70'S, HR 90'S-105 SIT. PT DID NOT HAVE ANY ADDITIONAL BM'S THIS SHIFT AND NO EMESIS, TOLERATED CLEAR LIQUIDS WELL. PT ANXIOUS T/O DAY WITH LABILE MOODS, REASSURANCE GIVEN INTERMITTENTLY. REPORT GIVEN TO MEDICAL FLOOR NURSE, PT TO ROOM 346 VIA WC WITH BELONGINGS. PROTONIX AND NS INFUSING PER ORDERS.
--- NOTE | 2018-11-24 05:04 | NUR ---
SUMMARY: A/OX4, SBA W/FWW IN ROOM TO TOILET AND PT CALLS APPROPRIATELY. SHE HAS A PROTONIX GTT INFUSING TO R.AC IV AND NS AT 100 ML/HR INFUSING TO R.CW MEDIPORT. SAW PT AND ADVANCED TO PUREE DIET W/APPLESAUCE AND PUDDING TOLERATED. SHE HAS REPORTED 8/10 EPIGASTRIC PAIN REQUIRING FENT IV Q2H PRN FOR REPORT OF 5-6/10 RELIEF. SHE HAS ALSO REQUIRED ALTERNATING DOSES OF PHENERGAN AND ZOFAN IV PRN FOR NAUSEA CONTROL BUT HASN'T HAD ANY EMESIS OR BM'S THIS SHIFT. BT'S (+)X4 QUADS. PT HAS HYDRALAZINE IV PRN BUT HAD 10MG DOSE JUST PRIOR TO MARGIN ANALYST W/BP IMPROVING FROM 190'S/100'S TO 160'S/80'S. BP HAS BEEN STABLE SINCE AND PT HASN'T REQUIRED ANY ADDITIONAL PRN DOSES. HR HAS ALSO IMPROVED, NOW 90'S BUT WAS 100'S AT START OF SHIFT. SHE ADMITS TO ANXIETY R/T PAIN, NAUSEA AND DIAGNOSIS. RESULT, VITALS ARE IMPROVED WHEN SYPMPTOMS ARE CONTROLLED AND ANXIETY IS LOW. PT WAS TEARFUL RE:HAVING SPENT IN ICU BUT REASSURANCE PROVIDED AND PT CALMED. SHE REMAINS ON RA W/SPO2 WNL BUT REPORTS SOB W/EXERTION. NO DYSPNEA NOTED AND LS CLEAR/DIMINISHED. VSS/AFEBRILE, NO ACUTE CHANGES. WCTM AND REPORT TO DAY RN.
[2018-11-24 06:30] LABS: BASOPHILS ABSOLUTE AUTO 0.01 K/mm3 (0.00-0.23); BASOPHILS PERCENT AUTO 0 % (0-2); EOSINOPHILS ABSOLUTE AUTO 0.11 K/mm3 (0.00-0.68); EOSINOPHILS PERCENT AUTO 2 % (0-6); Hematocrit 22.1 % (33.0-51.0); Hemoglobin 7.2 g/dL (11.5-16.0); IMMATURE GRAN ABSOLUTE AUTO 0.03 K/mm3 (0.00-0.10); IMMATURE GRAN PERCENT AUTO 1 % (0-1); LYMPHOCYTES ABSOLUTE AUTO 1.15 K/mm3 (0.84-5.20); LYMPHOCYTES PERCENT AUTO 21 % (21-46); MONOCYTES ABSOLUTE AUTO 0.54 K/mm3 (0.16-1.47); MONOCYTES PERCENT AUTO 10 % (4-13); Mean Corpuscular HGB 28.5 pg (26.0-34.0); Mean Corpuscular HGB Conc 32.6 g/dL (31.5-36.5); Mean Corpuscular Volume 87 fL (80-100); NEUTROPHILS ABSOLUTE AUTO 3.53 K/mm3 (1.96-9.15); NEUTROPHILS PERCENT AUTO 66 % (41-73); Platelet Count 158 K/mm3 (150-400); RDW Coefficient Variation 15.3 % (11.7-14.2); RDW Standard Deviation 48.7 fL (35.1-46.3); Red Blood Cell Count 2.53 M/mm3 (3.80-5.20); White Blood Cell Count 5.37 K/mm3 (4.00-11.30)
[2018-11-24 06:51] LABS: Anion Gap 5 mmol/L (6-16); Blood Urea Nitrogen 9 mg/dL (8-24); Bun/Creatinine Ratio 13.4 (12.0-20.0); CO2, Blood 26 mmol/L (21-32); Calcium, Blood 7.4 mg/dL (8.5-10.1); Chloride, Blood 113 mmol/L (98-108); Creatinine, Blood 0.67 mg/dL (0.40-1.00); Glomerular Filtration Rate >60 (60-); Glucose, Blood 95 mg/dL (70-99); Potassium, Blood 3.4 mmol/L (3.5-5.5); Sodium, Blood 144 mmol/L (136-145)
[2018-11-24 15:01] LABS: Hematocrit 21.6 % (33.0-51.0); Hemoglobin 6.9 g/dL (11.5-16.0); Mean Corpuscular HGB 28.6 pg (26.0-34.0); Mean Corpuscular HGB Conc 31.9 g/dL (31.5-36.5); Mean Platelet Volume 9.9 fL (9.1-12.4); Platelet Count 136 K/mm3 (150-400); RDW Coefficient Variation 15.5 % (11.7-14.2); Red Blood Cell Count 2.41 M/mm3 (3.80-5.20); White Blood Cell Count 5.58 K/mm3 (4.00-11.30)
[2018-11-24 15:02] LABS: Mean Corpuscular Volume 90 fL (80-100)
--- NOTE | 2018-11-24 18:30 | NUR ---
PT RECEIVING 2 PRBC TODAY FOR Hbg OF 6.9, NON SYMPTOMATIC, SHE IS REPORTING CONTINUED EPIGASTRIC PAIN AND NAUSEA. DR CONLEY PLANNING EGD TOMORROW. PT CAN HAVE FULL LIQUIDS UNTIL 0700, THEN WATER AND ICE CHIPS. NPO AT 1430. NO ACUTE CHANGES NOTED, WILL CONTINUE TO MONITOR AND REPORT TO ONCOMING NELLI
[2018-11-24 23:28] LABS: Hematocrit 30.9 % (33.0-51.0); Hemoglobin 10.5 g/dL (11.5-16.0); Mean Corpuscular HGB 30.3 pg (26.0-34.0); Mean Corpuscular Volume 89 fL (80-100); Mean Platelet Volume 8.8 fL (9.1-12.4); Platelet Count 145 K/mm3 (150-400); RDW Coefficient Variation 14.6 % (11.7-14.2); RDW Standard Deviation 47.3 fL (35.1-46.3); Red Blood Cell Count 3.47 M/mm3 (3.80-5.20); White Blood Cell Count 5.37 K/mm3 (4.00-11.30)
[2018-11-25 05:31] LABS: BASOPHILS ABSOLUTE AUTO 0.01 K/mm3 (0.00-0.23); BASOPHILS PERCENT AUTO 0 % (0-2); EOSINOPHILS ABSOLUTE AUTO 0.22 K/mm3 (0.00-0.68); EOSINOPHILS PERCENT AUTO 5 % (0-6); Hematocrit 29.6 % (33.0-51.0); Hemoglobin 9.9 g/dL (11.5-16.0); IMMATURE GRAN ABSOLUTE AUTO 0.03 K/mm3 (0.00-0.10); IMMATURE GRAN PERCENT AUTO 1 % (0-1); LYMPHOCYTES ABSOLUTE AUTO 1.16 K/mm3 (0.84-5.20); LYMPHOCYTES PERCENT AUTO 29 % (21-46); MONOCYTES PERCENT AUTO 10 % (4-13); Mean Corpuscular HGB 30.2 pg (26.0-34.0); Mean Corpuscular HGB Conc 33.4 g/dL (31.5-36.5); Mean Corpuscular Volume 90 fL (80-100); Mean Platelet Volume 8.8 fL (9.1-12.4); NEUTROPHILS ABSOLUTE AUTO 2.23 K/mm3 (1.96-9.15); NEUTROPHILS PERCENT AUTO 55 % (41-73); Platelet Count 136 K/mm3 (150-400); RDW Coefficient Variation 14.8 % (11.7-14.2); RDW Standard Deviation 47.8 fL (35.1-46.3); Red Blood Cell Count 3.28 M/mm3 (3.80-5.20); White Blood Cell Count 4.05 K/mm3 (4.00-11.30)
--- NOTE | 2018-11-25 05:37 | NUR ---
Shift Summary: Patient requested PRN pain medication frequently, but medication was effective. c/o nausea, but no emesis.
--- NOTE | 2018-11-25 08:04 | NUR ---
11/25/18 0804 Jimmie Arreaga PATIENT DETERMINED TO BE ASA APPROPRIATE FOR PROPOFOL SEDATION PRIOR TO START OF PROCEDURE BY DR. Arnol Martínez Placed3-LEAD EKG REVIEWED WITH PHYSICIAN PRIOR TO START OF PROCEDURE.Patient to ENDO 1History, Chart, Medications and Allergies reviewed before start of procedure.MONITOR INTACT WITH CONTINUOUS PULSE OXIMETRY AND INTERMITTENT BP.O2 VIA N/C INTACT THROUGHOUT SEDATION/PROCEDURE.
--- NOTE | 2018-11-25 15:34 | NUR ---
Spiritual care visit conducted. Patient is sitting up in bed and alert. Patient openly shares about filling like she is just surviving life and is void of richi and meaning. So we spend quite some time unpacking those statements and what they mean and how to think and live differently. I listen empathically and provide pastoral pet counselor and prayer. Patient responds well and shows signs of catharsis, restored vision and an elevated mood. I will continue to remain available to patient and family.
--- NOTE | 2018-11-25 17:45 | NUR ---
Spiritual Care routine visit: Niecy was in good spirits and says she feels better. She told me she expects to be discharged tomorrow. I provided prayer for continued healing. I will remain available.
--- NOTE | 2018-11-25 18:07 | NUR ---
SUMMARY- PT ALERT AND ORIENTED, GETTING UP SBA TO BSC. TOLERATING FOOD AND FLUID. INTERMITTANT NAUSEA (HAS BASELINE NAUSEA HX) MEDICATED ALTERNATING PHENERGAN/ZOFRAN WITH STATED RELEIF. CONT TO HAVE STATED SHARP EPIGASTRIC PAIN AND ASKS FOR FENT Q2-3. DECLINES LORTAB, STATES SHE DOESN'T WANT IT IN HER STOMACH. CONT PROTONIX GTT AND IVF. STATES BM'S TODAY STILL DARK IN COLOR. WILL REPORT TO NOC NELLI.
[2018-11-26 05:06] LABS: BASOPHILS ABSOLUTE AUTO 0.02 K/mm3 (0.00-0.23); BASOPHILS PERCENT AUTO 0 % (0-2); EOSINOPHILS ABSOLUTE AUTO 0.42 K/mm3 (0.00-0.68); EOSINOPHILS PERCENT AUTO 9 % (0-6); Hematocrit 30.2 % (33.0-51.0); Hemoglobin 9.8 g/dL (11.5-16.0); IMMATURE GRAN ABSOLUTE AUTO 0.03 K/mm3 (0.00-0.10); IMMATURE GRAN PERCENT AUTO 1 % (0-1); LYMPHOCYTES ABSOLUTE AUTO 1.45 K/mm3 (0.84-5.20); LYMPHOCYTES PERCENT AUTO 30 % (21-46); MONOCYTES ABSOLUTE AUTO 0.32 K/mm3 (0.16-1.47); MONOCYTES PERCENT AUTO 7 % (4-13); Mean Corpuscular HGB 29.7 pg (26.0-34.0); Mean Corpuscular HGB Conc 32.5 g/dL (31.5-36.5); Mean Corpuscular Volume 92 fL (80-100); NEUTROPHILS ABSOLUTE AUTO 2.61 K/mm3 (1.96-9.15); NEUTROPHILS PERCENT AUTO 54 % (41-73); Platelet Count 172 K/mm3 (150-400); RDW Coefficient Variation 15.6 % (11.7-14.2); RDW Standard Deviation 50.6 fL (35.1-46.3); White Blood Cell Count 4.85 K/mm3 (4.00-11.30)
[2018-11-26 05:53] LABS: Anion Gap 6 mmol/L (6-16); Blood Urea Nitrogen 8 mg/dL (8-24); CO2, Blood 24 mmol/L (21-32); Calcium, Blood 7.6 mg/dL (8.5-10.1); Chloride, Blood 114 mmol/L (98-108); Glomerular Filtration Rate >60 (60-); Glucose, Blood 81 mg/dL (70-99); Potassium, Blood 3.9 mmol/L (3.5-5.5); Sodium, Blood 144 mmol/L (136-145)
--- NOTE | 2018-11-26 07:36 | NUR ---
MOTHER BABY RN SUMMARY PATIENT SLEPT WELL UNTIL AROUND 0300 WHEN HE WANTED TO GET OOB AND GET DRESSED ND "READY FOR THE DAY". NO COMPLAINTS OF PAIN. HARRISON CATHETER DRAINING CLEAR YELLOW URINE. PATIENT STILL HAS MILD PITTING EDEMA ANKLES AND FEET. LUNG SOUNDS WITH FAINT FINE CRACKLES IN DEPENDENT BASES. ABDOMEN SOFT AND NON TENDER.
--- NOTE | 2018-11-26 07:55 | NUR ---
PATIENT SLEPT INTERMITTANTLY THTROUGHOUT NIGHT. REQUIRING IV PAIN MEDICATION EVERY 2-3 HOURS WITH ANTIEMETIC IV MEDICATION. HAD LARGE VERY HARD BLACK STOOL MIXED WITH CLEAR YELLOW URINE. WRETCHING AT START OF NIGHT WHICH DID SEEM TO ARTURO BY AROUND MIDNIGHT. WONDERING ABOUT COUMADIN DOSAGES AND WHEN SHE MIGHT BE DISCHRGE
[2018-11-26 14:51] LABS: BASOPHILS ABSOLUTE AUTO 0.02 K/mm3 (0.00-0.23); BASOPHILS PERCENT AUTO 0 % (0-2); EOSINOPHILS ABSOLUTE AUTO 0.42 K/mm3 (0.00-0.68); EOSINOPHILS PERCENT AUTO 7 % (0-6); Hematocrit 30.7 % (33.0-51.0); Hemoglobin 9.8 g/dL (11.5-16.0); IMMATURE GRAN ABSOLUTE AUTO 0.04 K/mm3 (0.00-0.10); IMMATURE GRAN PERCENT AUTO 1 % (0-1); LYMPHOCYTES ABSOLUTE AUTO 1.04 K/mm3 (0.84-5.20); LYMPHOCYTES PERCENT AUTO 18 % (21-46); MONOCYTES ABSOLUTE AUTO 0.48 K/mm3 (0.16-1.47); MONOCYTES PERCENT AUTO 8 % (4-13); Mean Corpuscular HGB 29.2 pg (26.0-34.0); Mean Corpuscular HGB Conc 31.9 g/dL (31.5-36.5); Mean Corpuscular Volume 91 fL (80-100); Mean Platelet Volume 9.3 fL (9.1-12.4); NEUTROPHILS ABSOLUTE AUTO 3.74 K/mm3 (1.96-9.15); NEUTROPHILS PERCENT AUTO 65 % (41-73); Platelet Count 189 K/mm3 (150-400); RDW Coefficient Variation 16.1 % (11.7-14.2); RDW Standard Deviation 49.7 fL (35.1-46.3); Red Blood Cell Count 3.36 M/mm3 (3.80-5.20); White Blood Cell Count 5.74 K/mm3 (4.00-11.30)
--- NOTE | 2018-11-26 17:58 | NUR ---
PATIENT IS ALERT AND ORIENTED AND COOPERATIVE WITH CARE. COMPLAINS OF PAIN IN HER ABDOMEN, TREATED WITH IV PAIN MEDICATION Q2H. PATIENT ALSO COMPLAINS OF NAUSEA TREATED WITH IV MEDICATIONS. DR. SIERRA ADVANCED HER DIET TO SOFT FOODS, SHE HAS BEEN TOLERATING THAT WELL. NO VOMITTING TODAY. PATIENT HAS BEEN HAVING BMS TODAY. WILL CONTINUE TO MONITOR
[2018-11-27 05:06] LABS: International Normalized Ratio 0.91; Prothrombin Time Results 9.7 Sec (9.7-11.5)
[2018-11-27] MEDS ORDERED: ACET325UDC PO (10:01)
[2018-11-27] MEDS ORDERED: Calcium Carbon500 M1 PO (10:02)
[2018-11-27] MEDS ORDERED: Docu Liqui50 MG/5 ML PO (10:03)
[2018-11-27] MEDS ORDERED: HYDROCODONE-ACET5 ML PO (10:05)
[2018-11-27] MEDS ORDERED: ONDA4ODT PO (10:05)
[2018-11-27] MEDS ORDERED: Potassium20 MEQ/11 PO (10:06)
[2018-11-27] MEDS ORDERED: ABAT250V (10:06)
== END 2018-11-27 12:45 | disposition home or self-care (01) | DRG 380 ==
LOC: ER 21:27 → MEDS 22:21 → ICUW 22:21 → MEDS 11-23 18:17 → ENPENDDIS 11-27 11:12 → MEDS 11-27 12:45
PROVIDERS: Emergency Medicine; Family Medicine; Internal Medicine Gastroenterology; ADMIT Hospitalist
PROC: 30233N1 Transfusion of Nonautologous Red Blood Cells into Peripheral Vein, Percutaneous Approach (ICD-10-PCS; 2018-11-22)
PROC: 0W3P8ZZ Control Bleeding in Gastrointestinal Tract, Via Natural or Artificial Opening Endoscopic (ICD-10-PCS; principal; 2018-11-22 12:30)
DX: K22.11 Ulcer of esophagus with bleeding (principal); N17.0 Acute kidney failure with tubular necrosis; D62 Acute posthemorrhagic anemia; K50.90 Crohn's disease, unspecified, without complications; I10 Essential (primary) hypertension; F43.10 Post-traumatic stress disorder, unspecified; K21.9 Gastro-esophageal reflux disease without esophagitis; D50.0 Iron deficiency anemia secondary to blood loss (chronic); Z86.718 Personal history of other venous thrombosis and embolism; Z98.84 Bariatric surgery status; I73.9 Peripheral vascular disease, unspecified
CPT/HCPCS: 36430; 51703; 80047; 80048; 80053; 81003; 85014; 85018; 85025; 85027; 85610; 85730; 86850; 86870; 86900; 86901; 86902; 86922; 93005; 93010; 96365; 96375; 99285-25; A9270-GY; C9113; J0171; J0360; J0461; J1642; J1940; J2250; J2354; J2405; J2550; J2704; J2765; J3010; J3430; J7030; J7040; J7120; P9016; P9059; Q0163

== ENCOUNTER 2019-01-04 00:41 | Day surgery (SDC) | payer OTHER ==
[~2019-01-04 00:41] MED LIST changes: +ABAT250V; +ACET325UDC PO; +Calcium Carbon500 M1 PO; +Docu Liqui50 MG/5 ML PO; +HYDROCODONE-ACET5 ML PO; +ONDA4ODT PO; +Potassium20 MEQ/11 PO
== END 2019-01-04 08:52 | disposition home or self-care (01) ==
LOC: ATC 00:41
DX: D50.9 Iron deficiency anemia, unspecified (principal); K91.2 Postsurgical malabsorption, not elsewhere classified; F17.210 Nicotine dependence, cigarettes, uncomplicated; E78.5 Hyperlipidemia, unspecified; F32.9 Major depressive disorder, single episode, unspecified; E03.9 Hypothyroidism, unspecified; I11.9 Hypertensive heart disease without heart failure; Z79.01 Long term (current) use of anticoagulants; Z79.02 Long term (current) use of antithrombotics/antiplatelets; Z79.899 Other long term (current) drug therapy; Z88.6 Allergy status to analgesic agent; Z88.8 Allergy status to other drugs, medicaments and biological substances; Z88.1 Allergy status to other antibiotic agents
CPT/HCPCS: J1642

== ENCOUNTER 2019-01-18 07:06 | Day surgery (SDC) | payer OTHER ==
[2019-01-18 09:16] LABS: BASOPHILS ABSOLUTE AUTO 0.01 K/mm3 (0.00-0.23); BASOPHILS PERCENT AUTO 0 % (0-2); EOSINOPHILS ABSOLUTE AUTO 0.24 K/mm3 (0.00-0.68); EOSINOPHILS PERCENT AUTO 4 % (0-6); Hematocrit 35.3 % (33.0-51.0); Hemoglobin 11.7 g/dL (11.5-16.0); IMMATURE GRAN ABSOLUTE AUTO 0.04 K/mm3 (0.00-0.10); IMMATURE GRAN PERCENT AUTO 1 % (0-1); LYMPHOCYTES ABSOLUTE AUTO 1.51 K/mm3 (0.84-5.20); LYMPHOCYTES PERCENT AUTO 22 % (21-46); MONOCYTES ABSOLUTE AUTO 0.63 K/mm3 (0.16-1.47); MONOCYTES PERCENT AUTO 9 % (4-13); Mean Corpuscular HGB 30.9 pg (26.0-34.0); Mean Corpuscular HGB Conc 33.1 g/dL (31.5-36.5); Mean Corpuscular Volume 93 fL (80-100); Mean Platelet Volume 9.2 fL (9.1-12.4); NEUTROPHILS ABSOLUTE AUTO 4.39 K/mm3 (1.96-9.15); NEUTROPHILS PERCENT AUTO 65 % (41-73); Platelet Count 253 K/mm3 (150-400); RDW Coefficient Variation 15.5 % (11.7-14.2); RDW Standard Deviation 53.1 fL (35.1-46.3); Red Blood Cell Count 3.79 M/mm3 (3.80-5.20); White Blood Cell Count 6.82 K/mm3 (4.00-11.30)
[2019-01-18 10:27] LABS: Percent Saturation 12.6 % (15.0-50.0)
== END 2019-01-18 08:55 | disposition home or self-care (01) ==
LOC: ATC 07:06
PROVIDERS: Internal Medicine Hematology & Oncology
DX: D50.8 Other iron deficiency anemias (principal); E78.5 Hyperlipidemia, unspecified; I10 Essential (primary) hypertension; E03.9 Hypothyroidism, unspecified; F17.210 Nicotine dependence, cigarettes, uncomplicated; Z79.01 Long term (current) use of anticoagulants; Z79.02 Long term (current) use of antithrombotics/antiplatelets; Z79.899 Other long term (current) drug therapy; Z88.6 Allergy status to analgesic agent; Z88.8 Allergy status to other drugs, medicaments and biological substances; Z87.19 Personal history of other diseases of the digestive system
CPT/HCPCS: 36591; 82306; 82607; 82728; 82746; 83540; 83550; 85025; J1642

== ENCOUNTER 2019-02-11 12:05 | Emergency (ER) | payer OTHER ==
[~2019-02-11] VITALS: Ht 157.5 cm; Wt 52.2 kg
== END 2019-02-11 16:11 | disposition home or self-care (01) ==
LOC: ER 12:05
DX: R06.02 Shortness of breath (principal); F41.9 Anxiety disorder, unspecified; T45.4X5A Adverse effect of iron and its compounds, initial encounter; I11.9 Hypertensive heart disease without heart failure; I43 Cardiomyopathy in diseases classified elsewhere; F43.10 Post-traumatic stress disorder, unspecified; F32.9 Major depressive disorder, single episode, unspecified; J44.9 Chronic obstructive pulmonary disease, unspecified; Z88.6 Allergy status to analgesic agent; Z88.1 Allergy status to other antibiotic agents; Z88.8 Allergy status to other drugs, medicaments and biological substances; Z91.048 Other nonmedicinal substance allergy status; Z79.899 Other long term (current) drug therapy; Z87.891 Personal history of nicotine dependence
CPT/HCPCS: 96361; 96374; 96375; 99283-25; J1200; J1642; J2060; J2405; J2550; J7030

== ENCOUNTER 2019-03-09 00:01 | Day surgery (SDC) | payer OTHER ==
[2019-03-09 09:20] LABS: BASOPHILS ABSOLUTE AUTO 0.01 K/mm3 (0.00-0.23); BASOPHILS PERCENT AUTO 0 % (0-2); EOSINOPHILS ABSOLUTE AUTO 0.17 K/mm3 (0.00-0.68); EOSINOPHILS PERCENT AUTO 3 % (0-6); Hematocrit 37.1 % (33.0-51.0); IMMATURE GRAN ABSOLUTE AUTO 0.03 K/mm3 (0.00-0.10); IMMATURE GRAN PERCENT AUTO 1 % (0-1); LYMPHOCYTES ABSOLUTE AUTO 1.46 K/mm3 (0.84-5.20); LYMPHOCYTES PERCENT AUTO 27 % (21-46); MONOCYTES ABSOLUTE AUTO 0.68 K/mm3 (0.16-1.47); MONOCYTES PERCENT AUTO 13 % (4-13); Mean Corpuscular HGB 30.3 pg (26.0-34.0); Mean Corpuscular HGB Conc 32.3 g/dL (31.5-36.5); Mean Corpuscular Volume 94 fL (80-100); Mean Platelet Volume 9.2 fL (9.1-12.4); NEUTROPHILS PERCENT AUTO 57 % (41-73); Platelet Count 205 K/mm3 (150-400); RDW Coefficient Variation 13.9 % (11.7-14.2); RDW Standard Deviation 47.4 fL (35.1-46.3); Red Blood Cell Count 3.96 M/mm3 (3.80-5.20); White Blood Cell Count 5.45 K/mm3 (4.00-11.30)
[2019-03-09] MEDS ORDERED: XARELTO15 MG PO (09:26)
[2019-03-09 09:55] LABS: Percent Saturation 16.5 % (15.0-50.0)
== END 2019-03-09 09:03 | disposition home or self-care (01) ==
LOC: ATC 00:01
PROVIDERS: Internal Medicine Hematology & Oncology
DX: D50.9 Iron deficiency anemia, unspecified (principal); F17.210 Nicotine dependence, cigarettes, uncomplicated; E78.5 Hyperlipidemia, unspecified; E03.9 Hypothyroidism, unspecified; F32.9 Major depressive disorder, single episode, unspecified; I10 Essential (primary) hypertension; Z79.899 Other long term (current) drug therapy; Z79.01 Long term (current) use of anticoagulants; Z79.02 Long term (current) use of antithrombotics/antiplatelets; Z88.6 Allergy status to analgesic agent; Z88.8 Allergy status to other drugs, medicaments and biological substances; Z98.890 Other specified postprocedural states
CPT/HCPCS: 82607; 82728; 82746; 83540; 83550; 85025; J1642

== ENCOUNTER 2019-03-19 11:28 | Day surgery (SDC) | payer OTHER ==
[~2019-03-19] VITALS: Ht 157.5 cm; Wt 53.9 kg
[~2019-03-19 11:28] MED LIST changes: +XARELTO15 MG PO
--- NOTE | 2019-03-19 14:38 | NUR ---
03/19/19 1438 Magaly Dawson PT COMPLAINED OF NAUSEA ONCE ARRIVING TO STEP DOWN. PT WRETCHED SEVERAL TIMES WITH NO EMESIS. RN TREATED PT WITH 4MG IV ZOFRAN PER DR CONLEY'S ORDERS. NAUSEA RESOLVED. MEDIPORT FLUSHED WITH 500U HEPRIN FLUSH PER MEDIPORT PROTOCOL WITH CHARGE NURSE OVERSIGHT. PT TOLERATED MEDIPORT DEACCESS WELL. CLEAN BAND AID APPLIED TO SITE, CLEAN AND DRY UPON DISCHARGE. PT DRESSED INDEPENDANTLY. PT WALKED TO 'S CAR AND VOICED SATISFACTION WITH CARE.
== END 2019-03-19 14:30 | disposition home or self-care (01) ==
LOC: ORSCSDS 11:28
PROVIDERS: Internal Medicine Gastroenterology
PROC: 0DJ08ZZ Inspection of Upper Intestinal Tract, Via Natural or Artificial Opening Endoscopic (ICD-10-PCS; principal; 2019-03-19 13:15)
DX: K22.10 Ulcer of esophagus without bleeding (principal); Z98.84 Bariatric surgery status; E78.5 Hyperlipidemia, unspecified; F17.210 Nicotine dependence, cigarettes, uncomplicated; Z79.01 Long term (current) use of anticoagulants; Z79.899 Other long term (current) drug therapy
CPT/HCPCS: J1642; J2405; J2704; J7120

== ENCOUNTER 2019-04-22 07:52 | Day surgery (SDC) | payer OTHER ==
[~2019-04-22] VITALS: Ht 157.5 cm; Wt 51.6 kg
[2019-04-22] MEDS ORDERED: CARV3.125 (08:51)
--- NOTE | 2019-04-22 10:34 | NUR ---
04/22/19 1034 Shira Colindres MEDIPORT DEACCESSED WITH FLUSHING WITH 5ML NACL & FLUSHING WITH 5ML HEPARIN(100 UNITS PER ML) & COVERED WITH BANDAID.
== END 2019-04-22 10:43 | disposition home or self-care (01) ==
LOC: ORSCSDS 07:52
PROVIDERS: Internal Medicine Gastroenterology
PROC: 0D778ZZ Dilation of Stomach, Pylorus, Via Natural or Artificial Opening Endoscopic (ICD-10-PCS; principal; 2019-04-22 09:45)
DX: K25.9 Gastric ulcer, unspecified as acute or chronic, without hemorrhage or perforation (principal); Z98.84 Bariatric surgery status; I10 Essential (primary) hypertension; E03.9 Hypothyroidism, unspecified; Z87.891 Personal history of nicotine dependence; Z86.718 Personal history of other venous thrombosis and embolism; Z79.01 Long term (current) use of anticoagulants; J44.9 Chronic obstructive pulmonary disease, unspecified; E78.5 Hyperlipidemia, unspecified; Z79.899 Other long term (current) drug therapy
CPT/HCPCS: C1726; J0461; J1642; J2405; J2704; J7120

== ENCOUNTER 2019-05-10 11:25 | Emergency (ER) | payer OTHER ==
[~2019-05-10] VITALS: Ht 157.5 cm; Wt 51.3 kg
[~2019-05-10 11:25] MED LIST changes: +CARV3.125
[2019-05-10 12:58] LABS: BASOPHILS ABSOLUTE AUTO 0.03 K/mm3 (0.00-0.23); BASOPHILS PERCENT AUTO 0 % (0-2); EOSINOPHILS ABSOLUTE AUTO 0.14 K/mm3 (0.00-0.68); EOSINOPHILS PERCENT AUTO 2 % (0-6); Hematocrit 37.5 % (33.0-51.0); Hemoglobin 12.3 g/dL (11.5-16.0); IMMATURE GRAN ABSOLUTE AUTO 0.03 K/mm3 (0.00-0.10); IMMATURE GRAN PERCENT AUTO 0 % (0-1); LYMPHOCYTES ABSOLUTE AUTO 1.42 K/mm3 (0.84-5.20); LYMPHOCYTES PERCENT AUTO 19 % (21-46); MONOCYTES PERCENT AUTO 7 % (4-13); Mean Corpuscular HGB 29.4 pg (26.0-34.0); Mean Corpuscular HGB Conc 32.8 g/dL (31.5-36.5); Mean Corpuscular Volume 90 fL (80-100); Mean Platelet Volume 9.1 fL (9.1-12.4); NEUTROPHILS ABSOLUTE AUTO 5.57 K/mm3 (1.96-9.15); NEUTROPHILS PERCENT AUTO 72 % (41-73); Platelet Count 213 K/mm3 (150-400); RDW Coefficient Variation 12.2 % (11.7-14.2); RDW Standard Deviation 39.9 fL (35.1-46.3); Red Blood Cell Count 4.18 M/mm3 (3.80-5.20); White Blood Cell Count 7.69 K/mm3 (4.00-11.30)
[2019-05-10 13:19] LABS: Anion Gap 5 mmol/L (6-16); Blood Urea Nitrogen 21 mg/dL (8-24); Bun/Creatinine Ratio 23.1 (12.0-20.0); CO2, Blood 26 mmol/L (21-32); Calcium, Blood 9.3 mg/dL (8.5-10.1); Chloride, Blood 108 mmol/L (98-108); Creatinine, Blood 0.91 mg/dL (0.40-1.00); Glomerular Filtration Rate >60 (60-); Glucose, Blood 115 mg/dL (70-99); Potassium, Blood 3.9 mmol/L (3.5-5.5); Sodium, Blood 139 mmol/L (136-145); Troponin I <0.015 ng/mL (0.000-0.040)
== END 2019-05-10 14:38 | disposition home or self-care (01) ==
LOC: ER 11:25
PROVIDERS: Emergency Medicine
DX: R07.89 Other chest pain (principal); R11.2 Nausea with vomiting, unspecified; G89.29 Other chronic pain; R10.84 Generalized abdominal pain; T40.605A Adverse effect of unspecified narcotics, initial encounter; D50.9 Iron deficiency anemia, unspecified; I10 Essential (primary) hypertension; F41.9 Anxiety disorder, unspecified; K21.9 Gastro-esophageal reflux disease without esophagitis; E78.5 Hyperlipidemia, unspecified; F31.9 Bipolar disorder, unspecified; E03.9 Hypothyroidism, unspecified; Z88.6 Allergy status to analgesic agent; Z88.8 Allergy status to other drugs, medicaments and biological substances; Z88.1 Allergy status to other antibiotic agents; Z79.899 Other long term (current) drug therapy; Z87.891 Personal history of nicotine dependence
CPT/HCPCS: 71045; 80048; 83690; 84484; 85025; 93005; 93010; 96361; 96374; 96375; 96376; 99285-25; J1642; J2550; J7030

== ENCOUNTER 2019-06-03 10:46 | Emergency (ER) | payer OTHER ==
[~2019-06-03] VITALS: Ht 157.5 cm; Wt 52.2 kg
[~2019-06-03 10:46] MED LIST changes: +ALBU90OI INH; +CARV6.25 PO; +FISH OIL 1,001000 MG PO; +MAGNESIUM OXID500 MG PO; +PROAIR RESPICL90 MCG IH
[2019-06-03 12:33] LABS: Alanine Aminotransfer (ALT/SGP 19 U/L (12-78); Albumin, Blood 2.5 g/dL (3.4-5.0); Albumin/Globulin Ratio 0.7 (0.8-1.8); Alk Phos 74 U/L (50-136); Anion Gap 5 mmol/L (6-16); Aspartate Aminotrans (AST/SGOT 17 U/L (12-37); Bilirubin, Total 0.2 mg/dL (0.1-1.0); Blood Urea Nitrogen 20 mg/dL (8-24); Bun/Creatinine Ratio 24.9 (12.0-20.0); CO2, Blood 26 mmol/L (21-32); Calcium, Blood 7.9 mg/dL (8.5-10.1); Chloride, Blood 109 mmol/L (98-108); Globulin, Blood 3.8 g/dL (2.2-4.0); Glomerular Filtration Rate >60 (60-); Glucose, Blood 111 mg/dL (70-99); Potassium, Blood 3.9 mmol/L (3.5-5.5); Sodium, Blood 140 mmol/L (136-145); Total Protein, Blood 6.3 g/dL (6.4-8.2); Troponin I <0.015 ng/mL (0.000-0.040)
[2019-06-03 12:53] LABS: BASOPHILS ABSOLUTE AUTO 0.02 K/mm3 (0.00-0.23); BASOPHILS PERCENT AUTO 0 % (0-2); EOSINOPHILS ABSOLUTE AUTO 0.09 K/mm3 (0.00-0.68); EOSINOPHILS PERCENT AUTO 2 % (0-6); Hematocrit 32.3 % (33.0-51.0); Hemoglobin 10.2 g/dL (11.5-16.0); IMMATURE GRAN ABSOLUTE AUTO 0.03 K/mm3 (0.00-0.10); IMMATURE GRAN PERCENT AUTO 1 % (0-1); LYMPHOCYTES ABSOLUTE AUTO 0.97 K/mm3 (0.84-5.20); LYMPHOCYTES PERCENT AUTO 16 % (21-46); MONOCYTES ABSOLUTE AUTO 0.71 K/mm3 (0.16-1.47); MONOCYTES PERCENT AUTO 12 % (4-13); Mean Corpuscular HGB 28.7 pg (26.0-34.0); Mean Corpuscular HGB Conc 31.6 g/dL (31.5-36.5); Mean Corpuscular Volume 91 fL (80-100); Mean Platelet Volume 8.9 fL (9.1-12.4); NEUTROPHILS PERCENT AUTO 69 % (41-73); Platelet Count 213 K/mm3 (150-400); RDW Coefficient Variation 12.9 % (11.7-14.2); RDW Standard Deviation 42.5 fL (35.1-46.3); Red Blood Cell Count 3.55 M/mm3 (3.80-5.20); White Blood Cell Count 5.92 K/mm3 (4.00-11.30)
== END 2019-06-03 14:37 | disposition home or self-care (01) ==
LOC: ER 10:46
PROVIDERS: Emergency Medicine
DX: R07.9 Chest pain, unspecified (principal); R51 Headache; R10.9 Unspecified abdominal pain; R11.2 Nausea with vomiting, unspecified; J44.9 Chronic obstructive pulmonary disease, unspecified; I10 Essential (primary) hypertension; E78.5 Hyperlipidemia, unspecified; D50.9 Iron deficiency anemia, unspecified; F31.9 Bipolar disorder, unspecified; F41.9 Anxiety disorder, unspecified; E03.9 Hypothyroidism, unspecified; K21.9 Gastro-esophageal reflux disease without esophagitis; Z87.891 Personal history of nicotine dependence; Z88.6 Allergy status to analgesic agent; Z88.8 Allergy status to other drugs, medicaments and biological substances; Z88.1 Allergy status to other antibiotic agents; Z91.09 Other allergy status, other than to drugs and biological substances; Z79.899 Other long term (current) drug therapy; Z79.51 Long term (current) use of inhaled steroids; Z86.718 Personal history of other venous thrombosis and embolism; Z79.01 Long term (current) use of anticoagulants
CPT/HCPCS: 36415; 71045; 80053; 84484; 85025; 93005; 93010; 96361; 96374; 99283-25; A9270; J1642; J2550; J7120

== ENCOUNTER 2019-06-11 00:07 | Day surgery (SDC) | payer OTHER ==
[2019-06-11 09:44] LABS: BASOPHILS ABSOLUTE AUTO 0.03 K/mm3 (0.00-0.23); BASOPHILS PERCENT AUTO 0 % (0-2); EOSINOPHILS ABSOLUTE AUTO 0.26 K/mm3 (0.00-0.68); EOSINOPHILS PERCENT AUTO 3 % (0-6); Hematocrit 35.6 % (33.0-51.0); Hemoglobin 11.4 g/dL (11.5-16.0); IMMATURE GRAN ABSOLUTE AUTO 0.03 K/mm3 (0.00-0.10); IMMATURE GRAN PERCENT AUTO 0 % (0-1); LYMPHOCYTES ABSOLUTE AUTO 1.61 K/mm3 (0.84-5.20); LYMPHOCYTES PERCENT AUTO 19 % (21-46); MONOCYTES ABSOLUTE AUTO 0.68 K/mm3 (0.16-1.47); MONOCYTES PERCENT AUTO 8 % (4-13); Mean Corpuscular HGB 28.4 pg (26.0-34.0); Mean Corpuscular Volume 89 fL (80-100); NEUTROPHILS ABSOLUTE AUTO 5.97 K/mm3 (1.96-9.15); NEUTROPHILS PERCENT AUTO 70 % (41-73); Platelet Count 336 K/mm3 (150-400); RDW Coefficient Variation 12.9 % (11.7-14.2); RDW Standard Deviation 42.5 fL (35.1-46.3); Red Blood Cell Count 4.01 M/mm3 (3.80-5.20); White Blood Cell Count 8.58 K/mm3 (4.00-11.30)
[2019-06-11 10:29] LABS: Percent Saturation 5.2 % (15.0-50.0)
== END 2019-06-11 09:19 | disposition home or self-care (01) ==
LOC: ATC 00:07
PROVIDERS: Internal Medicine Hematology & Oncology
DX: D50.9 Iron deficiency anemia, unspecified (principal); K90.9 Intestinal malabsorption, unspecified; D63.8 Anemia in other chronic diseases classified elsewhere; I73.9 Peripheral vascular disease, unspecified; E78.5 Hyperlipidemia, unspecified; E03.9 Hypothyroidism, unspecified; Z79.899 Other long term (current) drug therapy; Z79.02 Long term (current) use of antithrombotics/antiplatelets
CPT/HCPCS: 36591; 82728; 83540; 83550; 85025; J1642

== ENCOUNTER 2019-07-21 00:13 | Day surgery (SDC) | payer OTHER ==
[~2019-07-21 00:13] MED LIST changes: +EUTHYROX50 MCG PO; -FISH OIL 1,001000 MG PO; +OMEGA FISH O PO
[2019-07-21] MEDS ORDERED: METO25ER PO (09:04)
[2019-07-21 09:52] LABS: BASOPHILS ABSOLUTE AUTO 0.03 K/mm3 (0.00-0.23); BASOPHILS PERCENT AUTO 0 % (0-2); EOSINOPHILS ABSOLUTE AUTO 0.18 K/mm3 (0.00-0.68); EOSINOPHILS PERCENT AUTO 3 % (0-6); Hematocrit 37.3 % (33.0-51.0); IMMATURE GRAN ABSOLUTE AUTO 0.03 K/mm3 (0.00-0.10); IMMATURE GRAN PERCENT AUTO 0 % (0-1); LYMPHOCYTES ABSOLUTE AUTO 1.83 K/mm3 (0.84-5.20); LYMPHOCYTES PERCENT AUTO 27 % (21-46); MONOCYTES ABSOLUTE AUTO 0.53 K/mm3 (0.16-1.47); MONOCYTES PERCENT AUTO 8 % (4-13); Mean Corpuscular HGB 29.6 pg (26.0-34.0); Mean Corpuscular HGB Conc 32.2 g/dL (31.5-36.5); Mean Corpuscular Volume 92 fL (80-100); Mean Platelet Volume 9.1 fL (9.1-12.4); NEUTROPHILS ABSOLUTE AUTO 4.13 K/mm3 (1.96-9.15); NEUTROPHILS PERCENT AUTO 61 % (41-73); Platelet Count 278 K/mm3 (150-400); RDW Coefficient Variation 15.5 % (11.7-14.2); RDW Standard Deviation 52.3 fL (35.1-46.3); Red Blood Cell Count 4.05 M/mm3 (3.80-5.20); White Blood Cell Count 6.73 K/mm3 (4.00-11.30)
[2019-07-21 10:14] LABS: Percent Saturation 22.5 % (15.0-50.0)
== END 2019-07-21 09:21 | disposition home or self-care (01) ==
LOC: ATC 00:13
PROVIDERS: Internal Medicine Hematology & Oncology
DX: D50.9 Iron deficiency anemia, unspecified (principal); T50.905D Adverse effect of unspecified drugs, medicaments and biological substances, subsequent encounter; K25.9 Gastric ulcer, unspecified as acute or chronic, without hemorrhage or perforation; K91.2 Postsurgical malabsorption, not elsewhere classified; E78.5 Hyperlipidemia, unspecified; I10 Essential (primary) hypertension; Z87.891 Personal history of nicotine dependence; Z79.01 Long term (current) use of anticoagulants; Z79.899 Other long term (current) drug therapy; Z79.02 Long term (current) use of antithrombotics/antiplatelets
CPT/HCPCS: 36591; 82306; 82728; 83540; 83550; 85025; J1642

== ENCOUNTER 2019-08-18 06:08 | Day surgery (SDC) | payer OTHER ==
[~2019-08-18] VITALS: Ht 157.5 cm; Wt 57.0 kg
[~2019-08-18 06:08] MED LIST changes: +FAMO20 PO; +METO25ER PO; -PROAIR RESPICL90 MCG IH; +PROAIR RESPICL90 MCG INH
--- NOTE | 2019-08-18 11:00 | NUR ---
PT AMB TO BATHROOM /C SBA. TOLERATED WELL. -BLEEDING OR SWELLING L GROIN AREA. PORTACATH FLUSHED /C HEPARIN AND D/C.
--- NOTE | 2019-08-18 11:13 | NUR ---
PT VERBALIZED UNDERSTANDING OF WRITTEN AND VERBAL D/C INST. PT TAKEN OUT OF THE HRT CENTER VIA W/C.
== END 2019-08-18 11:27 | disposition home or self-care (01) ==
LOC: MHTC 06:08
DX: I70.211 Atherosclerosis of native arteries of extremities with intermittent claudication, right leg (principal); E78.00 Pure hypercholesterolemia, unspecified; I10 Essential (primary) hypertension; E03.9 Hypothyroidism, unspecified; Z87.891 Personal history of nicotine dependence; F32.9 Major depressive disorder, single episode, unspecified; Z88.6 Allergy status to analgesic agent; Z88.1 Allergy status to other antibiotic agents; Z88.8 Allergy status to other drugs, medicaments and biological substances; Z88.5 Allergy status to narcotic agent; Z79.899 Other long term (current) drug therapy; Z79.01 Long term (current) use of anticoagulants
CPT/HCPCS: 37221; 37224; 75625; 75716; 75774; 85347; 99152; 99153; C1760; C1769; C1876; C1887; C1894; C2623; J1200; J1642; J1644; J2060; J2250; J3010; J7030; Q9967

== ENCOUNTER 2019-10-16 09:16 | Inpatient (IN) | payer OTHER ==
[~2019-10-16] VITALS: Ht 157.5 cm; Wt 55.0 kg
[~2019-10-16 09:16] MED LIST changes: -XARELTO15 MG PO; +XARELTO2.5 M1 PO
[2019-10-16 10:25] LABS: BASOPHILS ABSOLUTE AUTO 0.02 K/mm3 (0.00-0.23); BASOPHILS PERCENT AUTO 0 % (0-2); EOSINOPHILS ABSOLUTE AUTO 0.17 K/mm3 (0.00-0.68); EOSINOPHILS PERCENT AUTO 3 % (0-6); Hematocrit 35.3 % (33.0-51.0); Hemoglobin 11.3 g/dL (11.5-16.0); IMMATURE GRAN ABSOLUTE AUTO 0.01 K/mm3 (0.00-0.10); IMMATURE GRAN PERCENT AUTO 0 % (0-1); LYMPHOCYTES ABSOLUTE AUTO 1.54 K/mm3 (0.84-5.20); LYMPHOCYTES PERCENT AUTO 22 % (21-46); MONOCYTES ABSOLUTE AUTO 0.49 K/mm3 (0.16-1.47); MONOCYTES PERCENT AUTO 7 % (4-13); Mean Corpuscular HGB 29.1 pg (26.0-34.0); Mean Corpuscular Volume 91 fL (80-100); Mean Platelet Volume 9.1 fL (9.1-12.4); NEUTROPHILS ABSOLUTE AUTO 4.65 K/mm3 (1.96-9.15); NEUTROPHILS PERCENT AUTO 68 % (41-73); Platelet Count 254 K/mm3 (150-400); RDW Coefficient Variation 13.2 % (11.7-14.2); RDW Standard Deviation 43.2 fL (35.1-46.3); Red Blood Cell Count 3.88 M/mm3 (3.80-5.20); White Blood Cell Count 6.88 K/mm3 (4.00-11.30)
[2019-10-16 10:42] LABS: Alanine Aminotransfer (ALT/SGP 15 U/L (12-78); Albumin, Blood 2.7 g/dL (3.4-5.0); Albumin/Globulin Ratio 0.8 (0.8-1.8); Alk Phos 70 U/L (50-136); Anion Gap 4 mmol/L (6-16); Aspartate Aminotrans (AST/SGOT 15 U/L (12-37); Bilirubin, Total 0.2 mg/dL (0.1-1.0); Blood Urea Nitrogen 14 mg/dL (8-24); Bun/Creatinine Ratio 14.6 (12.0-20.0); CO2, Blood 28 mmol/L (21-32); Calcium, Blood 8.5 mg/dL (8.5-10.1); Chloride, Blood 107 mmol/L (98-108); Creatinine, Blood 0.96 mg/dL (0.40-1.00); Globulin, Blood 3.6 g/dL (2.2-4.0); Glomerular Filtration Rate >60 (60-); Glucose, Blood 94 mg/dL (70-99); Potassium, Blood 4.6 mmol/L (3.5-5.5); Sodium, Blood 139 mmol/L (136-145); Total Protein, Blood 6.3 g/dL (6.4-8.2)
[2019-10-16] MEDS ORDERED: PROM25 PO (11:52)
[2019-10-16 15:58] LABS: Hematocrit 32.3 % (33.0-51.0); Hemoglobin 10.2 g/dL (11.5-16.0)
[2019-10-16] MEDS ORDERED: XARELTO20 MG PO (16:18)
[2019-10-16 21:01] LABS: Hemoglobin 9.5 g/dL (11.5-16.0)
[2019-10-17] MEDS ORDERED: CLON1 PO (00:35)
[2019-10-17 02:06] LABS: Hematocrit 29.1 % (33.0-51.0); Hemoglobin 9.2 g/dL (11.5-16.0); Mean Corpuscular HGB 29.2 pg (26.0-34.0); Mean Corpuscular HGB Conc 31.6 g/dL (31.5-36.5); Mean Corpuscular Volume 92 fL (80-100); Platelet Count 194 K/mm3 (150-400); RDW Coefficient Variation 13.3 % (11.7-14.2); RDW Standard Deviation 44.9 fL (35.1-46.3); Red Blood Cell Count 3.15 M/mm3 (3.80-5.20)
[2019-10-17 02:26] LABS: Alanine Aminotransfer (ALT/SGP 15 U/L (12-78); Albumin, Blood 2.3 g/dL (3.4-5.0); Albumin/Globulin Ratio 0.8 (0.8-1.8); Alk Phos 64 U/L (50-136); Anion Gap 4 mmol/L (6-16); Aspartate Aminotrans (AST/SGOT 14 U/L (12-37); Bilirubin, Total 0.2 mg/dL (0.1-1.0); Blood Urea Nitrogen 12 mg/dL (8-24); Bun/Creatinine Ratio 15.2 (12.0-20.0); CO2, Blood 23 mmol/L (21-32); Calcium, Blood 7.4 mg/dL (8.5-10.1); Chloride, Blood 112 mmol/L (98-108); Creatinine, Blood 0.79 mg/dL (0.40-1.00); Glomerular Filtration Rate >60 (60-); Glucose, Blood 86 mg/dL (70-99); Potassium, Blood 4.3 mmol/L (3.5-5.5); Sodium, Blood 139 mmol/L (136-145); Total Protein, Blood 5.3 g/dL (6.4-8.2)
[2019-10-18 05:56] LABS: Hematocrit 29.3 % (33.0-51.0); Hemoglobin 9.3 g/dL (11.5-16.0)
[2019-10-18 06:15] LABS: Albumin, Blood 2.3 g/dL (3.4-5.0); Anion Gap 5 mmol/L (6-16); Blood Urea Nitrogen 7 mg/dL (8-24); CO2, Blood 22 mmol/L (21-32); Chloride, Blood 116 mmol/L (98-108); Creatinine, Blood 0.87 mg/dL (0.40-1.00); Glomerular Filtration Rate >60 (60-); Glucose, Blood 133 mg/dL (70-99); Phosphorus, Blood 2.3 mg/dL (2.5-4.9); Potassium, Blood 3.9 mmol/L (3.5-5.5); Sodium, Blood 143 mmol/L (136-145)
[2019-10-19 05:46] LABS: BASOPHILS ABSOLUTE AUTO 0.01 K/mm3 (0.00-0.23); BASOPHILS PERCENT AUTO 0 % (0-2); EOSINOPHILS PERCENT AUTO 5 % (0-6); Hematocrit 28.6 % (33.0-51.0); Hemoglobin 9.1 g/dL (11.5-16.0); IMMATURE GRAN ABSOLUTE AUTO 0.01 K/mm3 (0.00-0.10); IMMATURE GRAN PERCENT AUTO 0 % (0-1); LYMPHOCYTES PERCENT AUTO 27 % (21-46); MONOCYTES PERCENT AUTO 8 % (4-13); Mean Corpuscular HGB 29.1 pg (26.0-34.0); Mean Corpuscular HGB Conc 31.8 g/dL (31.5-36.5); Mean Corpuscular Volume 91 fL (80-100); Mean Platelet Volume 9.1 fL (9.1-12.4); NEUTROPHILS ABSOLUTE AUTO 2.19 K/mm3 (1.96-9.15); NEUTROPHILS PERCENT AUTO 59 % (41-73); Platelet Count 199 K/mm3 (150-400); RDW Coefficient Variation 13.2 % (11.7-14.2); RDW Standard Deviation 43.5 fL (35.1-46.3); Red Blood Cell Count 3.13 M/mm3 (3.80-5.20); White Blood Cell Count 3.71 K/mm3 (4.00-11.30)
[2019-10-21] MEDS ORDERED: Norco 5-325 Ta1 EACH PO (15:32)
[2019-10-21] MEDS ORDERED: EUTHYROX50 MCG PO (15:32)
[2019-10-21] MEDS ORDERED: PANT40 PO (15:33)
[2019-10-22 08:35] LABS: BASOPHILS ABSOLUTE AUTO 0.01 K/mm3 (0.00-0.23); BASOPHILS PERCENT AUTO 0 % (0-2); EOSINOPHILS ABSOLUTE AUTO 0.14 K/mm3 (0.00-0.68); EOSINOPHILS PERCENT AUTO 4 % (0-6); Hematocrit 28.4 % (33.0-51.0); Hemoglobin 8.9 g/dL (11.5-16.0); IMMATURE GRAN ABSOLUTE AUTO 0.01 K/mm3 (0.00-0.10); IMMATURE GRAN PERCENT AUTO 0 % (0-1); LYMPHOCYTES ABSOLUTE AUTO 0.93 K/mm3 (0.84-5.20); LYMPHOCYTES PERCENT AUTO 24 % (21-46); MONOCYTES PERCENT AUTO 10 % (4-13); Mean Corpuscular HGB 28.3 pg (26.0-34.0); Mean Corpuscular HGB Conc 31.3 g/dL (31.5-36.5); Mean Corpuscular Volume 90 fL (80-100); Mean Platelet Volume 8.8 fL (9.1-12.4); NEUTROPHILS ABSOLUTE AUTO 2.44 K/mm3 (1.96-9.15); NEUTROPHILS PERCENT AUTO 62 % (41-73); Platelet Count 177 K/mm3 (150-400); RDW Coefficient Variation 13.3 % (11.7-14.2); RDW Standard Deviation 43.6 fL (35.1-46.3); Red Blood Cell Count 3.14 M/mm3 (3.80-5.20); White Blood Cell Count 3.93 K/mm3 (4.00-11.30)
[2019-10-22 08:51] LABS: Anion Gap 5 mmol/L (6-16); Blood Urea Nitrogen 8 mg/dL (8-24); CO2, Blood 30 mmol/L (21-32); Calcium, Blood 8.1 mg/dL (8.5-10.1); Chloride, Blood 111 mmol/L (98-108); Creatinine, Blood 0.89 mg/dL (0.40-1.00); Glomerular Filtration Rate >60 (60-); Glucose, Blood 85 mg/dL (70-99); Magnesium, Blood 1.5 mg/dL (1.6-2.4); Potassium, Blood 3.6 mmol/L (3.5-5.5); Sodium, Blood 146 mmol/L (136-145)
[2019-10-23 05:11] LABS: BASOPHILS ABSOLUTE AUTO 0.01 K/mm3 (0.00-0.23); BASOPHILS PERCENT AUTO 0 % (0-2); EOSINOPHILS ABSOLUTE AUTO 0.16 K/mm3 (0.00-0.68); EOSINOPHILS PERCENT AUTO 5 % (0-6); Hematocrit 27.6 % (33.0-51.0); Hemoglobin 8.8 g/dL (11.5-16.0); IMMATURE GRAN ABSOLUTE AUTO 0.01 K/mm3 (0.00-0.10); IMMATURE GRAN PERCENT AUTO 0 % (0-1); LYMPHOCYTES ABSOLUTE AUTO 0.99 K/mm3 (0.84-5.20); LYMPHOCYTES PERCENT AUTO 31 % (21-46); MONOCYTES ABSOLUTE AUTO 0.37 K/mm3 (0.16-1.47); MONOCYTES PERCENT AUTO 12 % (4-13); Mean Corpuscular HGB 29.2 pg (26.0-34.0); Mean Corpuscular HGB Conc 31.9 g/dL (31.5-36.5); Mean Corpuscular Volume 92 fL (80-100); Mean Platelet Volume 8.9 fL (9.1-12.4); NEUTROPHILS ABSOLUTE AUTO 1.62 K/mm3 (1.96-9.15); NEUTROPHILS PERCENT AUTO 51 % (41-73); Platelet Count 173 K/mm3 (150-400); RDW Coefficient Variation 13.2 % (11.7-14.2); RDW Standard Deviation 44.4 fL (35.1-46.3); Red Blood Cell Count 3.01 M/mm3 (3.80-5.20); White Blood Cell Count 3.16 K/mm3 (4.00-11.30)
[2019-10-23 05:32] LABS: Albumin, Blood 2.1 g/dL (3.4-5.0); Anion Gap 5 mmol/L (6-16); Blood Urea Nitrogen 10 mg/dL (8-24); Bun/Creatinine Ratio 11.4 (12.0-20.0); CO2, Blood 29 mmol/L (21-32); Calcium, Blood 8.2 mg/dL (8.5-10.1); Chloride, Blood 109 mmol/L (98-108); Creatinine, Blood 0.88 mg/dL (0.40-1.00); Glomerular Filtration Rate >60 (60-); Glucose, Blood 72 mg/dL (70-99); Magnesium, Blood 1.5 mg/dL (1.6-2.4); Phosphorus, Blood 3.7 mg/dL (2.5-4.9); Potassium, Blood 3.8 mmol/L (3.5-5.5); Sodium, Blood 143 mmol/L (136-145)
[2019-10-24 05:54] LABS: Albumin, Blood 2.3 g/dL (3.4-5.0); Anion Gap 2 mmol/L (6-16); Blood Urea Nitrogen 14 mg/dL (8-24); Bun/Creatinine Ratio 13.9 (12.0-20.0); CO2, Blood 33 mmol/L (21-32); Calcium, Blood 8.1 mg/dL (8.5-10.1); Chloride, Blood 108 mmol/L (98-108); Creatinine, Blood 1.01 mg/dL (0.40-1.00); Glomerular Filtration Rate 60 (60-); Glucose, Blood 92 mg/dL (70-99); Magnesium, Blood 1.8 mg/dL (1.6-2.4); Phosphorus, Blood 3.2 mg/dL (2.5-4.9); Potassium, Blood 3.8 mmol/L (3.5-5.5); Sodium, Blood 143 mmol/L (136-145)
[2019-10-25 05:07] LABS: BASOPHILS ABSOLUTE AUTO 0.01 K/mm3 (0.00-0.23); BASOPHILS PERCENT AUTO 0 % (0-2); EOSINOPHILS ABSOLUTE AUTO 0.13 K/mm3 (0.00-0.68); EOSINOPHILS PERCENT AUTO 3 % (0-6); Hematocrit 28.2 % (33.0-51.0); Hemoglobin 8.9 g/dL (11.5-16.0); IMMATURE GRAN ABSOLUTE AUTO 0.01 K/mm3 (0.00-0.10); IMMATURE GRAN PERCENT AUTO 0 % (0-1); LYMPHOCYTES ABSOLUTE AUTO 1.06 K/mm3 (0.84-5.20); LYMPHOCYTES PERCENT AUTO 28 % (21-46); MONOCYTES ABSOLUTE AUTO 0.37 K/mm3 (0.16-1.47); MONOCYTES PERCENT AUTO 10 % (4-13); Mean Corpuscular HGB Conc 31.6 g/dL (31.5-36.5); Mean Corpuscular Volume 92 fL (80-100); Mean Platelet Volume 9.2 fL (9.1-12.4); NEUTROPHILS PERCENT AUTO 58 % (41-73); Platelet Count 157 K/mm3 (150-400); RDW Coefficient Variation 13.1 % (11.7-14.2); RDW Standard Deviation 43.8 fL (35.1-46.3); Red Blood Cell Count 3.07 M/mm3 (3.80-5.20); White Blood Cell Count 3.78 K/mm3 (4.00-11.30)
[2019-10-25 05:29] LABS: Albumin, Blood 2.3 g/dL (3.4-5.0); Albumin/Globulin Ratio 0.8 (0.8-1.8); Bilirubin, Total 0.4 mg/dL (0.1-1.0); Bun/Creatinine Ratio 11.8 (12.0-20.0); Calcium, Blood 8.3 mg/dL (8.5-10.1); Creatinine, Blood 1.02 mg/dL (0.40-1.00); Globulin, Blood 2.8 g/dL (2.2-4.0); Magnesium, Blood 1.8 mg/dL (1.6-2.4); Potassium, Blood 3.8 mmol/L (3.5-5.5); Total Protein, Blood 5.1 g/dL (6.4-8.2)
[2019-10-25 05:58] LABS: Percent Saturation 9.6 % (15.0-50.0)
[2019-10-25] MEDS ORDERED: HYDR1TAB94 PO (13:59)
== END 2019-10-25 14:32 | disposition home or self-care (01) | DRG 379 ==
LOC: ER 09:16 → MEDS 12:11 → ENPENDDIS 10-25 14:20 → MEDS 10-25 14:32
PROVIDERS: Internal Medicine; Nurse Practitioner Acute Care; Physician Assistant; Student in an Organized Health Care Education/Training Program; ADMIT Internal Medicine
PROC: 0DJ08ZZ Inspection of Upper Intestinal Tract, Via Natural or Artificial Opening Endoscopic (ICD-10-PCS; principal; 2019-10-17 11:00)
DX: K25.4 Chronic or unspecified gastric ulcer with hemorrhage (principal); K20.8 Other esophagitis; F31.9 Bipolar disorder, unspecified; F43.10 Post-traumatic stress disorder, unspecified; E03.9 Hypothyroidism, unspecified; F41.9 Anxiety disorder, unspecified; K21.9 Gastro-esophageal reflux disease without esophagitis; Z86.718 Personal history of other venous thrombosis and embolism; D50.9 Iron deficiency anemia, unspecified; Z98.0 Intestinal bypass and anastomosis status; E83.42 Hypomagnesemia; E87.6 Hypokalemia; K29.70 Gastritis, unspecified, without bleeding
CPT/HCPCS: 74177; 80048; 80053; 80069; 82728; 82941; 82947; 83540; 83550; 83690; 83735; 85014; 85018; 85025; 85027; 86850; 86870; 86900; 86901; 93922; 94640; 94760; 96361; 96374; 96375; 99285-25; A9270-GY; C9113; J0360; J1170; J1200; J1642; J2060; J2250; J2405; J2550; J2704; J3010; J3475; J3480; J7030; J7120; Q9967; U0002

== ENCOUNTER 2019-11-01 08:58 | Emergency (ER) | payer OTHER ==
[~2019-11-01] VITALS: Ht 157.5 cm; Wt 58.1 kg
[~2019-11-01 08:58] MED LIST changes: +XARELTO20 MG PO
[2019-11-01 11:35] LABS: BASOPHILS ABSOLUTE AUTO 0.02 K/mm3 (0.00-0.23); BASOPHILS PERCENT AUTO 0 % (0-2); EOSINOPHILS ABSOLUTE AUTO 0.08 K/mm3 (0.00-0.68); EOSINOPHILS PERCENT AUTO 1 % (0-6); Hematocrit 31.5 % (33.0-51.0); Hemoglobin 9.8 g/dL (11.5-16.0); IMMATURE GRAN ABSOLUTE AUTO 0.04 K/mm3 (0.00-0.10); IMMATURE GRAN PERCENT AUTO 1 % (0-1); LYMPHOCYTES ABSOLUTE AUTO 0.86 K/mm3 (0.84-5.20); LYMPHOCYTES PERCENT AUTO 11 % (21-46); MONOCYTES ABSOLUTE AUTO 0.59 K/mm3 (0.16-1.47); MONOCYTES PERCENT AUTO 7 % (4-13); Mean Corpuscular HGB Conc 31.1 g/dL (31.5-36.5); Mean Corpuscular Volume 90 fL (80-100); Mean Platelet Volume 9.5 fL (9.1-12.4); NEUTROPHILS ABSOLUTE AUTO 6.41 K/mm3 (1.96-9.15); NEUTROPHILS PERCENT AUTO 80 % (41-73); Platelet Count 233 K/mm3 (150-400); RDW Coefficient Variation 13.2 % (11.7-14.2); RDW Standard Deviation 42.7 fL (35.1-46.3)
[2019-11-01 11:55] LABS: Alanine Aminotransfer (ALT/SGP 14 U/L (12-78); Albumin, Blood 2.7 g/dL (3.4-5.0); Albumin/Globulin Ratio 0.8 (0.8-1.8); Alk Phos 66 U/L (50-136); Anion Gap 8 mmol/L (6-16); Aspartate Aminotrans (AST/SGOT 11 U/L (12-37); Bilirubin, Total 0.3 mg/dL (0.1-1.0); Blood Urea Nitrogen 10 mg/dL (8-24); Bun/Creatinine Ratio 11.5 (12.0-20.0); CO2, Blood 24 mmol/L (21-32); Calcium, Blood 8.6 mg/dL (8.5-10.1); Chloride, Blood 110 mmol/L (98-108); Creatinine, Blood 0.87 mg/dL (0.40-1.00); Globulin, Blood 3.4 g/dL (2.2-4.0); Glomerular Filtration Rate >60 (60-); Glucose, Blood 107 mg/dL (70-99); Potassium, Blood 3.5 mmol/L (3.5-5.5); Sodium, Blood 142 mmol/L (136-145); Total Protein, Blood 6.1 g/dL (6.4-8.2); Troponin I <0.015 ng/mL (0.000-0.040)
== END 2019-11-01 15:29 | disposition home or self-care (01) ==
LOC: ER 08:58
PROVIDERS: Physician Assistant
DX: K29.70 Gastritis, unspecified, without bleeding (principal); E03.9 Hypothyroidism, unspecified; I10 Essential (primary) hypertension; F41.9 Anxiety disorder, unspecified; F32.9 Major depressive disorder, single episode, unspecified; Z87.891 Personal history of nicotine dependence
CPT/HCPCS: 36415; 71045; 80053; 82272; 84484; 85025; 86850; 86870; 86900; 86901; 93005; 93010; 96361; 96374; 96375; 96376; 99285-25; C9113; J1642; J2405; J2550; J2765; J7030; J7120

== ENCOUNTER 2019-12-23 12:57 | Day surgery (SDC) | payer OTHER ==
[~2019-12-23] VITALS: Ht 157.5 cm; Wt 53.0 kg
[2019-12-23] MEDS ORDERED: CLON.1 (13:15)
[2019-12-23] MEDS ORDERED: CARV3.125 (13:16)
--- NOTE | 2019-12-23 13:51 | NUR ---
12/23/19 0951 FAWAD EVANS PATIENT WITH MEDIPORT TO RIGHT SUBCLAVIAN. MEDIPORT ACCESSED AT BEDSIDE WITH DOMINGUEZ NEEDLE. MEDIPORT PATENT AND ABLE TO DRAW BACK WITH BLOOD RETURN.
--- NOTE | 2019-12-23 15:03 | NUR ---
12/23/19 1503 FAWAD EVANS [facility]. DEACCESSED WITH NO ISSUE.
--- NOTE | 2019-12-23 15:04 | NUR ---
12/23/19 1504 AFWAD EVANS PATIENT COUGHING/RETCHING UPON REMOVAL OF SCOPE. PT SUCTIONED WITH RETURN OF SPUTUM AND BLOOD TINGED SPUTUM. PT COUGHING NON- PRODUCTIVELY. JAW THRUST/CHIN LIFT AND O2 INCREASED TO 5L VIA NC.
== END 2019-12-23 15:00 | disposition home or self-care (01) ==
LOC: ORSCSDS 12:57
PROVIDERS: Internal Medicine Gastroenterology
PROC: 0D758ZZ Dilation of Esophagus, Via Natural or Artificial Opening Endoscopic (ICD-10-PCS; principal; 2019-12-23 14:15)
DX: K25.9 Gastric ulcer, unspecified as acute or chronic, without hemorrhage or perforation (principal); K21.00 Gastro-esophageal reflux disease with esophagitis, without bleeding; Z98.84 Bariatric surgery status; Z79.891 Long term (current) use of opiate analgesic; I10 Essential (primary) hypertension; Z86.73 Personal history of transient ischemic attack (TIA), and cerebral infarction without residual deficits; F33.1 Major depressive disorder, recurrent, moderate; J44.9 Chronic obstructive pulmonary disease, unspecified; E78.5 Hyperlipidemia, unspecified; Z79.01 Long term (current) use of anticoagulants; Z79.899 Other long term (current) drug therapy
CPT/HCPCS: C1726; J1642; J2405; J2704; J7120

== ENCOUNTER 2020-02-22 00:21 | Day surgery (SDC) | payer OTHER ==
[~2020-02-22 00:21] MED LIST changes: +CARV3.125 PO; +FISH OIL-VIT D1 EACH PO
== END 2020-02-22 09:00 | disposition home or self-care (01) ==
LOC: ATC 00:21
DX: Z45.2 Encounter for adjustment and management of vascular access device (principal); K90.9 Intestinal malabsorption, unspecified; D50.9 Iron deficiency anemia, unspecified; E78.5 Hyperlipidemia, unspecified; G89.29 Other chronic pain; F43.10 Post-traumatic stress disorder, unspecified; E03.9 Hypothyroidism, unspecified; I10 Essential (primary) hypertension; M81.0 Age-related osteoporosis without current pathological fracture; Z87.891 Personal history of nicotine dependence; Z79.01 Long term (current) use of anticoagulants; Z79.899 Other long term (current) drug therapy; Z88.1 Allergy status to other antibiotic agents; Z88.6 Allergy status to analgesic agent; Z88.8 Allergy status to other drugs, medicaments and biological substances; Z85.6 Personal history of leukemia; Z92.3 Personal history of irradiation; Z20.822 Contact with and (suspected) exposure to COVID-19
CPT/HCPCS: 96523; J1642

== ENCOUNTER 2020-03-25 09:10 | Inpatient (IN) | payer OTHER ==
[~2020-03-25] VITALS: Ht 157.5 cm; Wt 55.1 kg
[2020-03-25] MEDS ORDERED: PROM25 PO (09:48)
[2020-03-25 09:54] LABS: Base Excess Venous -0.2 mmol/L; Bicarbonate Venous 23.7 mmol/L (24.0-30.0); PCO2 Venous 47.3 mmHg (38-42); PO2 Venous 47.5 mmHg (38-42); pH Blood Venous 7.34 (7.34-7.37)
[2020-03-25 10:02] LABS: BASOPHILS ABSOLUTE AUTO 0.03 K/mm3 (0.00-0.23); BASOPHILS PERCENT AUTO 0 % (0-2); EOSINOPHILS ABSOLUTE AUTO 0.01 K/mm3 (0.00-0.68); EOSINOPHILS PERCENT AUTO 0 % (0-6); Hematocrit 31.9 % (33.0-51.0); Hemoglobin 10.2 g/dL (11.5-16.0); IMMATURE GRAN ABSOLUTE AUTO 0.08 K/mm3 (0.00-0.10); IMMATURE GRAN PERCENT AUTO 1 % (0-1); LYMPHOCYTES ABSOLUTE AUTO 1.02 K/mm3 (0.84-5.20); LYMPHOCYTES PERCENT AUTO 6 % (21-46); MONOCYTES ABSOLUTE AUTO 0.53 K/mm3 (0.16-1.47); MONOCYTES PERCENT AUTO 3 % (4-13); Mean Corpuscular HGB 30.6 pg (26.0-34.0); Mean Corpuscular Volume 96 fL (80-100); NEUTROPHILS PERCENT AUTO 90 % (41-73); NRBC ABSOLUTE 0.02 K/mm3 (0.00-0.02); NRBC Auto 0.1 /100 WBC (0.0-0.2); Platelet Count 259 K/mm3 (150-400); RDW Coefficient Variation 15.2 % (11.7-14.2); RDW Standard Deviation 52.5 fL (35.1-46.3); Red Blood Cell Count 3.33 M/mm3 (3.80-5.20); White Blood Cell Count 16.47 K/mm3 (4.00-11.30)
[2020-03-25 10:19] LABS: International Normalized Ratio 1.02; Prothrombin Time Results 10.9 Sec (9.7-11.5)
[2020-03-25 10:22] LABS: Alanine Aminotransfer (ALT/SGP 47 U/L (12-78); Albumin, Blood 2.5 g/dL (3.4-5.0); Albumin/Globulin Ratio 0.7 (0.8-1.8); Alk Phos 90 U/L (50-136); Anion Gap 7 mmol/L (6-16); Aspartate Aminotrans (AST/SGOT 66 U/L (12-37); Bilirubin, Total 0.3 mg/dL (0.1-1.0); Blood Urea Nitrogen 21 mg/dL (8-24); Bun/Creatinine Ratio 26.6 (12.0-20.0); CO2, Blood 26 mmol/L (21-32); Calcium, Blood 9.2 mg/dL (8.5-10.1); Chloride, Blood 106 mmol/L (98-108); Creatinine, Blood 0.79 mg/dL (0.40-1.00); Globulin, Blood 3.5 g/dL (2.2-4.0); Glomerular Filtration Rate >60 (60-); Glucose, Blood 95 mg/dL (70-99); Potassium, Blood 3.6 mmol/L (3.5-5.5); Sodium, Blood 139 mmol/L (136-145); Troponin I 0.195 ng/mL (0.000-0.040)
[2020-03-25 11:15] LABS: Influenza A, PCR Negative (NEGATIVE); Influenza B, PCR Negative (NEGATIVE); Resp Syncytial Virus, PCR Negative (NEGATIVE); SARS-Cov-2 (COVID-19) PCR, MMC Negative (NEGATIVE)
[2020-03-25 13:30] LABS: PCO2 Arterial 51.5 mmHg (35-45); PO2 Arterial 53.8 mmHg (80-100); pH Blood Arterial 7.31 (7.35-7.45)
[2020-03-25 13:51] LABS: Hematocrit 30.3 % (33.0-51.0); Hemoglobin 9.7 g/dL (11.5-16.0)
--- NOTE | 2020-03-25 13:56 | NUR ---
PT ADMITTED TO ICU AT 1320 FROM ER FOR SEVERE SEPSIS; RESP FAILURE. PT ARRIVED AWAKE. FLAT AFFECT. PT DOES NOT APPEAR TO BE IN RESP DISTRESS, BREATHING UNLABORED, BUT SATS 86-90% DISPITE INCREASING O2 TO 12L VIA OXYMIZER. PT C/O SHARP PAIN TO LOWER LUNG AND EPIGASTIC AREA 08/19; SHARP PAIN, WORSE W DEEP BREATH. PT DOES APPEAR TO BE SPLINTING SOMEWHAT W SHALLOW RESP. RT CALLED. PT PLACED ON AIRVO 45L/60%. CRACKLES TO R UPPER,MIDDLE, LOWER LOBE. DIMINISHED TO L LOBES. NS BOLUS INFUSING VIA MEDIPORT TO RIGHT CHEST. PT IS TO HAVE 1L TOTAL FOLLOWED BY NS AT 100CC/HR. PT STATES SHE HAS HAD NO URGE TO VOID. MAY REQUIRE HARRISON CATHETER. DULCOLAX ORDERED STAT; WILL HOLD UNTIL PT'S RESP STATUS IS STABLE. DR EVERETT CALLED TO GIVE UPDATE. CRITICAL CARE CONSULTED. DR WOLFE CALLED AND WILL BE IN TO SEE PT.
--- NOTE | 2020-03-25 16:12 | NUR ---
PT NOW HAS CRACKLES T/O. SATS IMPROVED AT 93% ON 45L/55%. PT STATES SHE IS FEELING ANXIOUS. PT DOES TWITCH/JERK IN SLEEP. PT VERY DROWSY; FALLS ASLEEP DURING QUESTIONS.
[2020-03-25 17:24] LABS: Source, Urine Catheter
[2020-03-25 17:39] LABS: Appearance, Urine Clear (Clear); Bilirubin, Urine Neg (Neg); Blood, Urine 3+ (Neg); Color, Urine Yellow (P-Yellow); Glucose Qualitative, Urine Neg (Neg); Ketones, Urine 3+ (Neg); Leukocyte Esterase, Urine Neg (Neg); Nitrite, Urine Neg (Neg); Protein, Urine 1+ (Neg); Urobilinogen, Urine NORM (Normal)
[2020-03-25 17:48] LABS: Bacteria Not Seen /hpf; Squamous Epithelial Cells Not Seen /hpf (Few); White Blood Cells, Urine Not Seen /hpf (0-5)
--- NOTE | 2020-03-25 18:42 | NUR ---
DR WOLFE IN TO SEE PT AROUND 1500; SEE NEW ORDERS. PT UNABLE TO VOID/RETENTION. HARRISON CATHETER PLACED PER DR WOLFE. 18F HARRISON TEMP PROBE PLACED W/O DIFFICULTY. URINE SAMPLE SENT TO LAB. SATS >95% ON AIRVO 45L/52%. PT MEDICATED W FENT 25MCG TWICE FOR PLEURISY PAIN. PO MEDS HELD D/T NAUSEA; ZOFRAN GIVEN W GOOD RELIEF. MRSA SWAB SENT. PT HAS MULTIPLE BRUISES AND SCATCHES T/O BODY. PT STATES SHE SCRATCHES SELF IN SLEEP; BRUISING D/T BLOOD THINNERS.
--- NOTE | 2020-03-25 21:55 | NUR ---
ASSUMED PT CARE AT 1915 FROM NELLI RUTHERFORD PT EASILY AROUSABLE; ALERT AND ORIENTED AND ABLE TO MAKE NEEDS KNOWN. AIRVO AT 45L AND 45% FIO2; BIOX >90%. NO LABORED BREATHING NOTED AT THIS TIME. VSS, SEE FLOWSHEET. HARRISON CATHETER IS PATENT AND DRAINING CLEAR, YELLOW URINE TO GRAVITY. REFUSED ALL HS MEDICATIONS D/T HER STOMACH BEING UPSET AND NOT FEELING WELL. STATES SHE ALMOST VOMITED EARLIER WHEN SHE TOOK HER MEDS. LUNG SOUNDS HAVE CRACKLES NOTED TO BILATERAL BASES. PT ABLE TO SHIFT OWN WEIGHT, BUT DID REQUEST HELP WITH MAJOR REPOSITIONING D/T DECONDITIONED AND WEAKNESS; WILL HELP WITH REPOSITIONING T/O NIGHT. SKIN IS OVERALL INTACT; HOWEVER, VERY FRAGILE AND EMACIATED APPEARING. SCATTERED ECCHYMOSIS AND ABRASIONS, WELL MULTIPLE ABDOMINAL SCARS FROM PAST SURGERIES. PERIPHERAL PULSES PRESENT, BUT THREADY TO BLE'S. PT ABLE TO DEMONSTRATE ADEQUATE USE OF CALL LIGHT, WHICH IS WITHIN REACH.
--- NOTE | 2020-03-26 01:58 | NUR ---
ELEVATED TEMP MEDICATED WITH TYLENOL PER ORDERS D/T TMAX OF 101.3. PT ABLE TO SWALLOW MEDS CRUSHED IN APPLESAUCE.
[2020-03-26 02:01] LABS: BASOPHILS ABSOLUTE AUTO 0.01 K/mm3 (0.00-0.23); BASOPHILS PERCENT AUTO 0 % (0-2); EOSINOPHILS ABSOLUTE AUTO 0.04 K/mm3 (0.00-0.68); EOSINOPHILS PERCENT AUTO 0 % (0-6); Hematocrit 29.8 % (33.0-51.0); Hemoglobin 9.3 g/dL (11.5-16.0); IMMATURE GRAN ABSOLUTE AUTO 0.06 K/mm3 (0.00-0.10); IMMATURE GRAN PERCENT AUTO 1 % (0-1); LYMPHOCYTES ABSOLUTE AUTO 0.71 K/mm3 (0.84-5.20); LYMPHOCYTES PERCENT AUTO 6 % (21-46); MONOCYTES ABSOLUTE AUTO 0.39 K/mm3 (0.16-1.47); MONOCYTES PERCENT AUTO 3 % (4-13); Mean Corpuscular HGB 30.3 pg (26.0-34.0); Mean Corpuscular HGB Conc 31.2 g/dL (31.5-36.5); Mean Corpuscular Volume 97 fL (80-100); Mean Platelet Volume 8.9 fL (9.1-12.4); NEUTROPHILS ABSOLUTE AUTO 10.59 K/mm3 (1.96-9.15); NEUTROPHILS PERCENT AUTO 90 % (41-73); NRBC ABSOLUTE 0.02 K/mm3 (0.00-0.02); NRBC Auto 0.2 /100 WBC (0.0-0.2); Platelet Count 229 K/mm3 (150-400); RDW Coefficient Variation 15.3 % (11.7-14.2); RDW Standard Deviation 53.7 fL (35.1-46.3); Red Blood Cell Count 3.07 M/mm3 (3.80-5.20)
[2020-03-26 02:19] LABS: Anion Gap 7 mmol/L (6-16); Blood Urea Nitrogen 10 mg/dL (8-24); Bun/Creatinine Ratio 15.5 (12.0-20.0); CO2, Blood 27 mmol/L (21-32); Calcium, Blood 7.8 mg/dL (8.5-10.1); Chloride, Blood 108 mmol/L (98-108); Creatinine, Blood 0.64 mg/dL (0.40-1.00); Glomerular Filtration Rate >60 (60-); Glucose, Blood 73 mg/dL (70-99); Magnesium, Blood 1.3 mg/dL (1.6-2.4); Phosphorus, Blood 2.2 mg/dL (2.5-4.9); Potassium, Blood 3.4 mmol/L (3.5-5.5); Sodium, Blood 142 mmol/L (136-145); Troponin I 0.246 ng/mL (0.000-0.040)
--- NOTE | 2020-03-26 05:44 | NUR ---
END OF SHIFT SUMMARY PT REMAINS ON AIRVO 45L, FIO2 46%; BIOX >88%. PT BECOMES SOB WITH MINIMAL EXERTION AND CANNOT TOLERATE LYING FLAT. LUNGS REMAIN CLEAR TO BILATERAL UPPERS AND CRACKLES NOTED TO BILATERAL LOWER LOBES. SHE HAS BEEN SINUS TACH WITH HR 100-120'S; BP'S STABLE, SEE FLOWSHEET. HARRISON CATHETER PATENT AND DRAINED 750CC OF CLEAR JOSE URINE. TEMP ELEVATED TO 101.3; THEREFORE, MEDICATED WITH TYLENOL, WHICH PT PREFERED IT BE CRUSHED AND IN APPLESAUCE. SHE REFUSED THE REST OF HER PO MEDS SHE DIDN'T THINK SHE WOULD BE ABLE TO "KEEP THEM DOWN". SHE REQUESTED SPIRITUAL CARE D/T HER FEELING AFFLICTED BETWEEN BEING HOSPITALIZED AGAIN AND BEING THE MAIN CAREGIVER OF HER . PT SPEAKING OF NOT KNOWING WHETHER TO "FIGHT TO LIVE" OR JUST "GIVE UP". SYMPATHIZED WITH PT AND EXPRESSED ACKNOWLEDGMENT THAT SHE MUST BE VERY "TIRED" WITH HER HX OF FREQUENT HOSPITALIZATIONS. PT TEARFUL AT THIS TIME AND NODDED HER HEAD "YES". PT REASSURED WITH REACHING AND TOUCHING HER ARM THAT WE SYMPATHIZED WITH HER AND HER SITUATION, AND ONLY WANT WHAT IS BEST FOR HER. ASKED IF SHE WOULD LIKE HER OWN IMPLANT COORDINATOR TO COME AND TALK WITH HER, SHE STATED SHE WOULD REALLY LIKE THAT, BUT IN THE MEANTIME SHE WAS OKAY WITH SPIRITUAL CARE COMING AND PRAYING WITH HER. WILL CONTINUE TO MONITOR UNTIL REPORT IS HANDED OFF TO ONCOMING RN.
--- NOTE | 2020-03-26 09:16 | NUR ---
CARE OF PT ASSUMED AT 0700. PT RESTING IN BED AWAKE. PT W FLAT AFFECT; DISCOURAGED AND SAD ABOUT BEING IN HOSP. 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 PT'S SAT >95% ON AIRVO AT 45L/46%. PT DROPS TO 85% WITH ANY MOVEMENT OR PROLONGED SPEECH. PT C/O PLEURISY PAIN 08/19. PT DOES NOT TAKE DEEP BREATHS BECAUSE OF THIS. PT IS BEING TREATED W FENT 25MCG Q 4HRS. PT ALSO HAS HAD C/O OF CONSTANT MILD NAUSEA. ZOFRAN GIVEN WELL. PT DECLINED PO MEDS D/T "STOMACH UPSET". WILL NOTIFY MD PT MAY NEED PO MEDS CHANGED TO IV.
--- NOTE | 2020-03-26 09:50 | NUR ---
DR WOLFE IN; FULL UPDATE GIVEN. LOVENOX SQ AND PROTONIX IV ORDERED. IV FLUIDS DC'D. PT'S AIRVO BECAME DISCONNECTED, SATS DROPPED TO 60-66%. PT QUICKLY RECOVERED, THOUGH O2 DID NEED TO BE TITRATED UP TO 50% PT WOULD DESAT TO 86% WITH ANY SPEECH.
--- NOTE | 2020-03-26 10:56 | NUR ---
PT'S TROPONIN LEVATED THIS AM. ECHO COMPLETED. REPEAT TROPONIN AND EKG ORDERED BY DR WOLFE. REPEAT TROPONIN IS TRENDING DOWN. EKG SHOWS SINUS TACHYCARDIA. PT IS COMPLAINING OF PLEURITIC CHEST PAIN; SHARP PAIN WORSE W DEEP BREATH. DR EVERETT IN TO SEE PT; FULL UPDATE GIVEN.
--- NOTE | 2020-03-26 12:23 | NUR ---
PHENERGAN IV GIVEN FOR NAUSEA. POWERGLIDE PLACED TO MARIE W/O DIFFICULTY. PT VERY TEARFUL. 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 PT WORRIED THAT NO ONE IS AT HOME TO HELP HIM. PT HAS DIFFICULTY CARING FOR HIM AT TIMES D/T HER DISABILTY. SOCIAL CONSULT PLACED. CLINIMIX STARTED AT 50CC/HR.
--- NOTE | 2020-03-26 18:47 | NUR ---
PT'S SATS HAVE BEEN >90%. PT ON AIRVO 45L/53%. PT HAS DESATURATED LESS T/O SHIFT WITH EXERTION COMPARED TO THIS AM. PT HAS NOT HAD ANYTHING PO THIS SHIFT. PHENERGAN GIVEN FOR NAUSEA PER PT REQUEST AND HAS WORKED WELL, THOUGH PT HAS DECLINED ANYTHING ORAL SHE FEELS IT WOULD HAVE UPSET HER STOMACH. PT HAS HAD SOME MODERATE HTN T/O SHIFT. SCHEDULED LOPRESSOR IV ORDERED AND STARTED. CLINIMIX IS RUNNING AT 50CC/HR.
--- NOTE | 2020-03-26 19:42 | NUR ---
ASSESSMENT/ASSUMED CARE BEDSIDE REPORT RECEIVED FROM KRISH AIKEN. PT AWAKE WITH RT AT BEDSIDE DOING UDN TX. PT REPORTS NAUSEA, MED WITH PHENERGAN. LUNGS CLEAR BUT DECREASED THROUGHOUT. NONPRODUCTIVE COUGH NOTED. SOB WITH ANY ACTIVITY. HEART RATE 90-100'S. BP STABLE. BT+ ABD ROUND AND SOFT. MEDIPORT TO RIGHT CHEST WALL WITH NS AT 10 ML/HR, SITE CLEAR WITH DRSG INTACT. POWER GLIDE TO RIGHT UPPER ARM WITH CLINIMIX AT 50 ML/HR, SITE CLEAR WITH DRSG INTACT. HARRISON CATH PATENT AND DRAINING CLEAR YELLOW URINE. PT MOVING SELF AROUND IN BED.
--- NOTE | 2020-03-26 21:22 | NUR ---
TEMP PT MED WITH TYLENOL FOR TEMP 100.8. WILL CONT TO MONITOR. FAN ON PT. EXTRA BLANKET REMOVED.
[2020-03-27 03:26] LABS: Hematocrit 27.7 % (33.0-51.0); Hemoglobin 8.8 g/dL (11.5-16.0); Mean Corpuscular HGB 30.3 pg (26.0-34.0); Mean Corpuscular HGB Conc 31.8 g/dL (31.5-36.5); Mean Corpuscular Volume 96 fL (80-100); Mean Platelet Volume 8.6 fL (9.1-12.4); Platelet Count 182 K/mm3 (150-400); RDW Coefficient Variation 14.7 % (11.7-14.2); RDW Standard Deviation 51.4 fL (35.1-46.3); White Blood Cell Count 8.06 K/mm3 (4.00-11.30)
[2020-03-27 03:39] LABS: Albumin, Blood 1.8 g/dL (3.4-5.0); Anion Gap 4 mmol/L (6-16); Blood Urea Nitrogen 8 mg/dL (8-24); CO2, Blood 32 mmol/L (21-32); Calcium, Blood 7.9 mg/dL (8.5-10.1); Chloride, Blood 106 mmol/L (98-108); Creatinine, Blood 0.53 mg/dL (0.40-1.00); Glomerular Filtration Rate >60 (60-); Glucose, Blood 114 mg/dL (70-99); Magnesium, Blood 1.8 mg/dL (1.6-2.4); Phosphorus, Blood 1.9 mg/dL (2.5-4.9); Potassium, Blood 3.3 mmol/L (3.5-5.5); Sodium, Blood 142 mmol/L (136-145)
--- NOTE | 2020-03-27 06:06 | NUR ---
SHIFT SUMMARY PT RESTING QUIETLY WITH AIRVO AT 45 LITERS FIO2 57%. SPO2 96%. NONPRODUCTIVE COUGH NOTED. PT MED WITH LOPRESSOR 5 MG Q6HR TO KEEP HEART RATE AND BP DOWN. PT WITH TEMP MAX 101.1, MED WITH TYLENOL TWICE WITH GOOD RESULTS. PT TURNING AND MOVING SELF IN BED. MEDIPORT TO RIGHT CHEST WALL WITH NS AT 10 ML/HR. PHOS 1.9 AND K+ 3.3, KPHOS INFUSING VIA MEDIPORT. POWER GLIDE WITH CLINIMIX AT 50 ML/HR. VSS. REPORT TO ON COMING NURSE.
--- NOTE | 2020-03-27 07:30 | NUR ---
ASSUMED CARE PT AWAKE, ALERT, CONFUSED TO DATE BUT COOPERATIVE WITH CARE. REPORTING ONGOING NAUSEA AND ASKING WHEN HER NEXT DOSE OF PHENERGRAN IS DUE. CURRENTLY ON AIRVO AT 45L/57% WITH SATS IN THE MID-HIGH 90S. BP STABLE, HR SR IN THE 90S. REPORTS OCCASIONAL, GENERALIZED PAIN, WELL CONTROLLED WITH IV FENTANYL. CLINIMIX IFNUSING VIA POWERGLIDE IN [facility], KPHOS RIDER TO MEDIPORT IN [facility].
--- NOTE | 2020-03-27 09:54 | NUR ---
Assumed care of Pt. Pt resting in bed. States that she is having some pain in her abd but states that she knows that it is too early for pain medication. States it is tolerable at this moment. LS diminished throughout. Airvo in place at 45L 57% Fio2, biox 98%. HR reg. BT hypoactive. Pt states that she has not had a BM since Friday or Friday and that she is not passing much flatus. Denies nausea at this time. Call light in reach. Will continue to monitor.
--- NOTE | 2020-03-27 12:48 | NUR ---
Pt resting in bed. Resp even and unlabored. LS slightly diminished but clear. Airvo adjusted by RT. Now at 35L 44% Fio2. BIox 95%. Pt has no other acute changes at this time. Will continue to monitor.
--- NOTE | 2020-03-27 14:00 | NUR ---
CARE ASSUMED FROM NELLI RATLIFF. PT SITTING UP IN BED, NO VISIBLE DISTRESS. WATCHING TELEVISION. AIRVO IN USE, GOOD SATURATIONS. PT DENIES ANY NEEDS AT THIS TIME, STATES THAT SHE IS ANTICIPATING HER PAIN MEDS AT 3. WILL MEDICATE NEEDED.
--- NOTE | 2020-03-27 14:34 | NUR ---
report given to NELLI Paul and care transfered.
--- NOTE | 2020-03-27 17:25 | NUR ---
Spiritual care note: Mrs. Forrest admits that she has worn herself out trying to care for her demanding at home. Apparently, "He can't do anything for himself" and "He was angry that I was coming to the hospital." She beleives he may be showing signs of dementia. She is willing to look into getting some help at home. She appears quite tired, so visit kept rather brief. Provided theraputic listening, prayer, and gentle rehabilitation services counselor to good effect. I will continue to monitor for needs.
--- NOTE | 2020-03-27 18:28 | NUR ---
JAIDA IS RESTING QUIETLY ON THE AIRVO WITH GOOD SATS AND BLOOD PRESSURE STABLE. IV INFUSING AT KVO.
--- NOTE | 2020-03-27 19:15 | NUR ---
ASSUMPTION OF CARE RECEIVED REPORT FROM DANG AIKEN. ASSUMED CARE OF PATIENT. PATIENT IN BED WITH EYES CLOSED, NO S/S OF DISTRESS. VITALS STABLE. NS INFUSING AT TKO RATE OF 10ML/HR VIA MEDIPORT. AIRVO IN PLACE AT 35L, 40% FIO2. SATS MAINTAINING ABOVE 90%. PATIENT EASILY AWOKE, DENIED NEEDS. PLAN FOR NIGHT TIME MEDICATIONS AND REPOSITIONING EXPLAINED. PATIENT VERBALLY AGREED. CALL LIGHT IN REACH.
--- NOTE | 2020-03-28 | NUR ---
REASSESSMENT NO ACUTE CHANGES FROM PREVIOUS ASSESSMENT. PATIENT SLEEPING AT THIS TIME. VITALS STABLE, TEMPERATURE DECREASING. AIRVO SETTINGS REMAIN UNCHANGED FROM 35L AND 40%. SATS ABOVE 90%. HARRISON PATENT AND DRAINING CLEAR, YELLOW URINE. NO S/S OF DISTRESS AT THIS TIME. WILL CONTINUE TO MONITOR.
[2020-03-28 03:55] LABS: BASOPHILS PERCENT AUTO 0 % (0-2); EOSINOPHILS ABSOLUTE AUTO 0.18 K/mm3 (0.00-0.68); EOSINOPHILS PERCENT AUTO 2 % (0-6); Hematocrit 27.6 % (33.0-51.0); Hemoglobin 8.8 g/dL (11.5-16.0); IMMATURE GRAN ABSOLUTE AUTO 0.04 K/mm3 (0.00-0.10); IMMATURE GRAN PERCENT AUTO 1 % (0-1); LYMPHOCYTES ABSOLUTE AUTO 0.81 K/mm3 (0.84-5.20); LYMPHOCYTES PERCENT AUTO 11 % (21-46); MONOCYTES ABSOLUTE AUTO 0.39 K/mm3 (0.16-1.47); MONOCYTES PERCENT AUTO 5 % (4-13); Mean Corpuscular HGB 29.9 pg (26.0-34.0); Mean Corpuscular HGB Conc 31.9 g/dL (31.5-36.5); Mean Corpuscular Volume 94 fL (80-100); Mean Platelet Volume 8.8 fL (9.1-12.4); NEUTROPHILS ABSOLUTE AUTO 6.11 K/mm3 (1.96-9.15); NEUTROPHILS PERCENT AUTO 81 % (41-73); Platelet Count 205 K/mm3 (150-400); RDW Coefficient Variation 14.6 % (11.7-14.2); RDW Standard Deviation 50.4 fL (35.1-46.3); Red Blood Cell Count 2.94 M/mm3 (3.80-5.20); White Blood Cell Count 7.53 K/mm3 (4.00-11.30)
--- NOTE | 2020-03-28 04:00 | NUR ---
REASSESSMENT NO ACUTE CHANGES FROM PREVIOUS ASSESSMENT. AIRVO SETTINGS 35L AND 45%. SATS ABOVE 90% VITALS STABLE. CALL LIGHT IN REACH.
[2020-03-28 04:12] LABS: Anion Gap 4 mmol/L (6-16); Blood Urea Nitrogen 9 mg/dL (8-24); Bun/Creatinine Ratio 15.1 (12.0-20.0); CO2, Blood 32 mmol/L (21-32); Chloride, Blood 105 mmol/L (98-108); Glomerular Filtration Rate >60 (60-); Glucose, Blood 108 mg/dL (70-99); Magnesium, Blood 1.5 mg/dL (1.6-2.4); Phosphorus, Blood 2.5 mg/dL (2.5-4.9); Potassium, Blood 3.3 mmol/L (3.5-5.5); Sodium, Blood 141 mmol/L (136-145)
--- NOTE | 2020-03-28 07:16 | NUR ---
SHIFT SUMMARY NO ACUTE EVENTS THROUGH SHIFT. AIRVO SETTINGS REMAIN UNCHANGED. VITALS STABLE. PATIENT A/O IN BED, MEDICATED FOR ANXIETY CHARTED. REPORT GIVEN TO ANKITA AIKEN.
--- NOTE | 2020-03-28 10:30 | NUR ---
ASSUMED CARE / DR GARCIA: REPORT RECEIVED FROM MERE Vail RN. ASSUMED CARE OF THIS PT AT APPROX 0700. ON ASSESSMENT, THE PT IS A&O, PLEASANT & COOPERATIVE. SHE STS HAVING SOME PAIN IN HER RIBS/CHEST R/T "COUGHING SO MUCH." MEDS PER EMAR. LS ARE DIM T/O, PT ON 5L OXYMIZER W/ O2 SATS > 92%. MONITOR SHOWS SR W/ HR 90s, BP STABLE. PT HAS C/O INTERMITTENT NAUSEA, MEDS PER EMAR. TOLERATING PO INTAKE WELL WHEN NAUSEA SUBSIDES. TEMP HARRISON PATENT/ DRAINING DARK YELLOW URINE. SKIN OVERALL FRAGILE, ECCHYMOTIC, INTACT. PROVIDER AT BEDSIDE TO EVAL PT. SHE STS OKAY FOR PT TO BE CHANGED TO PCU STATUS, ORDERS PLACED. ABX ADJUSTED FOR PT's PERSISTANT FEVER. WILL CONTINUE TO MONITOR & UPDATE NEEDED.
--- NOTE | 2020-03-28 12:53 | NUR ---
TRANSFER TO PCU: REPORT HAS BEEN GIVEN TO ZINA Garcia RN, AT APPROX 1250. PT, MEDS, CHART & ALL BELONGINGS HAVE BEEN TRANSFERRED TO [facility] AT APPROX 1253 BY FELIX WILLIS.
--- NOTE | 2020-03-28 18:34 | NUR ---
PATIENT ARRIVED TO UNIT FROM ICU, NO ACUTE EVENTS THIS HALF OF SHIFT. PATIENT ON 7-10 L VIA OXIMIZER, WILL DESAT TO MID 80S AFTER COUGHING FITS, OTHERWISE O2 SATS IN LOW 90S. ALERT AND ORIENTED, ABLE TO AMBULATE SBA FROM ICU BED TO ROOM BED. PATIENT COMPLAINED OF PAIN/NAUSEA, MEDICATED PER EMAR.
--- NOTE | 2020-03-28 20:49 | NUR ---
ASSUMED CARE FROM DAY SHIFT RN PT WAS AWAKE AND PARTICIPATED IN BEDSIDE REPORT. PT SATURATION DROPPED DURING REPORT AND O2 WAS TITRAITED UP TO 11L VIA OXYMIZER. PT WAS ABLE TO TAKE EVENING MEDICATIONS AND REQUESTED THAT THE TIME OF THE NEXT PAIN AND NAUSEA MEDS WERE WRITTEN ON THE BOARD TO KEEP HER ANXIETY AT BAY. A NEW SAT MONITOR PROBE WAS PLACED ON THE PT'S FINGER TO ENSURE A PROPER READING. ASSESSMENT AND MEDS WERE COMPLETED. PT IS IN BED SLEEPING AT THIS TIME
--- NOTE | 2020-03-29 00:42 | NUR ---
AIRVO PT WAS ON 11L VIA OXYMIZER AND BEGAN TO HAVE SATURATIONS DROP INTO THE LOW 80% RT WAS AVAILABLE TO COME SEE THE PATIENT AND PLACED HER ON AIRVO AT 40L AND 68% FIO2. PT IS NOW MAINTAINING SAT BETWEEN 92-94%. VS STABLE OTHERWISE, PT LETHARGIC AND NOW RESTING AGAIN
[2020-03-29 03:47] LABS: BASOPHILS ABSOLUTE AUTO 0.01 K/mm3 (0.00-0.23); BASOPHILS PERCENT AUTO 0 % (0-2); EOSINOPHILS ABSOLUTE AUTO 0.29 K/mm3 (0.00-0.68); EOSINOPHILS PERCENT AUTO 3 % (0-6); Hematocrit 26.3 % (33.0-51.0); Hemoglobin 8.5 g/dL (11.5-16.0); IMMATURE GRAN ABSOLUTE AUTO 0.04 K/mm3 (0.00-0.10); IMMATURE GRAN PERCENT AUTO 1 % (0-1); LYMPHOCYTES ABSOLUTE AUTO 0.91 K/mm3 (0.84-5.20); LYMPHOCYTES PERCENT AUTO 11 % (21-46); MONOCYTES ABSOLUTE AUTO 0.52 K/mm3 (0.16-1.47); MONOCYTES PERCENT AUTO 6 % (4-13); Mean Corpuscular HGB 30.6 pg (26.0-34.0); Mean Corpuscular HGB Conc 32.3 g/dL (31.5-36.5); Mean Corpuscular Volume 95 fL (80-100); NEUTROPHILS ABSOLUTE AUTO 6.78 K/mm3 (1.96-9.15); NEUTROPHILS PERCENT AUTO 79 % (41-73); Platelet Count 199 K/mm3 (150-400); RDW Coefficient Variation 14.4 % (11.7-14.2); RDW Standard Deviation 50.2 fL (35.1-46.3); Red Blood Cell Count 2.78 M/mm3 (3.80-5.20); White Blood Cell Count 8.55 K/mm3 (4.00-11.30)
[2020-03-29 04:02] LABS: Anion Gap 5 mmol/L (6-16); Blood Urea Nitrogen 9 mg/dL (8-24); Bun/Creatinine Ratio 12.8 (12.0-20.0); CO2, Blood 30 mmol/L (21-32); Calcium, Blood 8.4 mg/dL (8.5-10.1); Chloride, Blood 105 mmol/L (98-108); Glomerular Filtration Rate >60 (60-); Glucose, Blood 93 mg/dL (70-99); Magnesium, Blood 1.5 mg/dL (1.6-2.4); Potassium, Blood 3.7 mmol/L (3.5-5.5); Sodium, Blood 140 mmol/L (136-145)
--- NOTE | 2020-03-29 05:47 | NUR ---
SHIFT SUMMARY PT BEGAN THE NIGHT ON 11L OF O2 VIA OXYMIZER. THE PT WAS SLEEPING SHE BEGAN TO DESAT. THE PT WAS THEN PLACED BACK ON AIRVO, 40L AN 68% BY RESPIRATORY CARE. PT HAS TOLERATED THE AIRVO WELL ALL NIGHT, IT HAS BEEN NEEDED TO MAINTAIN SATURATION. PT HAS FREQUENTLY REPORTED PAIN AND NAUSEA WHICH HAS BEEN TREATED PER THE EMAR. PT'S HARRISON WAS DC'D THIS MORNING, PT TOLERATED WELL, 700ML OF YELLOW URINE WAS EMPTIED PRIOR TO PULLING OUT THE CATHETER; 10ML OF SALINE WAS PULLED FROM THE HARRISON BALLOON. NO IRRITATION OR REDNESS AT THE CATHETER INSERTION SITE AT THE TIME OF DC. VS STABLE OTHER THAN NEEDING THE AIRVO FOR BREATHING. PT RESTING IN BED AT THIS TIME
--- NOTE | 2020-03-29 17:23 | NUR ---
NO ACUTE EVENTS THIS SHIFT. PATIENT ALERT AND ORIENTED, REMAINED ON AIRVO THIS SHIFT. STANDBY ASSIST TO BEDSIDE COMMODE, TOLERATED ABULATION WELL, NO NOTED DECREASE IN O2 SATURATION. AT TIMES AIRVO WOULD BECOME DISPLACED OUTSIDE NOSTRILS, PATIENT WOULD DESAT TO 70S. QUICK RECOVERY TO LOW 90S WITH PROPER PLACEMENT OF AIRVO. PATIENT SWITCHED OVER TO PO PHENERGAN AND NORCO THIS SHIFT. PATIENT CONTINUES TO COMPLAIN OF CONSTANT NAUSEA AND 8/10 ESOPHAGEAL PAIN T/O SHIFT.
--- NOTE | 2020-03-30 04:39 | NUR ---
SHIFT SUMMARY PT STATES BEING FRUSTRATED WITH CARE DUE TO NOT BEING DISCHARGED AND WANTS TO GO HOME. PT WAS COOPERATIVE WITH CARE. VITALS REMAINED STABLE, BP 134-121 SYSTOLIC. HR 80-90'S. PT WAS ON AIRVO AT 45LPM WITH 65% O2 T/O THE SHIFT WITH O2 SATS >94%. PT ABLE TO TRANSFER TO BSC INDEPENDENTLY WITH NO DROP IN O2 SATS AND PT STATES NO SOB. PRN PAIN MEDICATION WAS GIVEN ON A SCHEDULE PER PT REQUEST, PT REMINDED STAFF OF SCHEDULE AND WOULD CALL. PT HAD AN UNEVENTFUL NIGHT AND WAS ABLE TO GET SOME SLEEP.
--- NOTE | 2020-03-30 09:54 | NUR ---
Spoke with Bedside NELLI Gardner prior to Pt visit and discussed case. Pt struggling with anxiety related to pain regimen change and social concerns. Pt wanting to leave AMA. Pt resting in bed upon arrival and is on AIRVO. Engaged in therapeutic listening as Pt expresses concerns regarding her and her dog. Spouse suffers from COPD and has panick attacks. Pt also has concerns with needing assistance with cooking and cleaning. Pt reports no qualifying for assistance for caregiver. Continued therapeutic listening and answered questions. Pt reports being hesitant regarding pain regimen change but is agreeable at this time. Proved gentle education regarding using flutter valve to assist with improving respiratory status. Pt expresses appreciation of visit and reports no other concerns at this time. Palliative Care will remain available.
--- NOTE | 2020-03-30 13:02 | NUR ---
Spiritual care visit conducted. Patient tells me about her aubree struggles, her concerns about her husbands ability to manage while she is in the hospital and about her pain levels (even though she understands about the balance between her breathing and her pain management). Patient tells me that she is worried about many things. I encourage self-care, provide anxiety containment, therapeutic listening and prayer. Patient responds well and shows signs of reduced stress and a resolve to get the help she needs so she can take care of the others. I will continue to remain available to patient and family.
[2020-03-30 16:02] LABS: Influenza A, PCR NEGATIVE (NEGATIVE); Influenza B, PCR NEGATIVE (NEGATIVE); Resp Syncytial Virus, PCR NEGATIVE (NEGATIVE); SARS-Cov-2 (COVID-19) PCR, MMC NEGATIVE (NEGATIVE)
--- NOTE | 2020-03-30 16:59 | NUR ---
SHIFT SUMMARY NO ACUTE EVENTS THIS SHIFT, VSS. PATIENT REMAINS ON AIRVO THIS SHIFT, WHEN O2 OUT OF PLACE WILL DESAT TO LOW 80S. PATIENT ABLE TO SELF TRANSFER FROM BED TO BEDSIDE COMMODE WITH STANDBY ASSIST FOR LINE MANAGEMENT. MEDIPORT RUNNING AT [facility]. ARDEN CONTINUED THIS SHIFT, PATIENT STATES SATISFACTION WITH CURRENT PAIN/NAUSEA MANAGEMENT REGIMEN. PATIENT ENCOURAGED IN USE OF FLUTTER VALVE AND REPOSITIONING AND MOVEMENT T/O SHIFT BY THIS RN.
--- NOTE | 2020-03-30 22:00 | NUR ---
PT TRANSFERRING TO ROOM 343 WITH ASSIST FROM 2 RECEIVING TELLER'S USING WHEELCHAIR. PERSONAL BELONGINGS SENT WITH PT. PT PLACED ON 15L NON-REBREATHER PER RT FOR TRANSPORT. REPORT GIVEN TO NELLI COWAN.
--- NOTE | 2020-03-30 22:30 | NUR ---
59 YR OLD FEMALE ADMITTED TO FLOOR FROM THE PCU WITH DX OF SEVERE SEPSIS. ALERT AND ORIENTED. ABLE TO AMBULATE WITH OBSERVATION. ORIENTED TO CALL LIGHT AND TELEPHONE. CALL LIGHT IN REACH. VOICED SOME DECREASED SENSATION IN FEET BUT THAT IS HER BASELINE DUE TO HX DVTS. O2 PER NC. RT WAS AT BEDSIDE TO CALCULATE O2 DOSES, ETC
--- NOTE | 2020-03-31 06:22 | NUR ---
SHIFT SUMMARY AWAKE AT INTERVALS THIS SHIFT. MEDICATED FOR NAUSEA, PAIN AND ANXIETY - SEE MAR FOR DETAILS. IV ANTIBIOTICS ADMINISTERED AT 0300. O2 PER NC PER RT ASSESSMENT AND TREATMENT. VOICED FEELING BETTER THAN YESTERDAY. CALL LIGHT IN REACH
--- NOTE | 2020-03-31 10:34 | NUR ---
Spiritual care visit conducted. Patient is sitting on EOB and alert. Patient has her bags packed and is ready for DC. Patient tells me that she was absolutely determined to get home because she is her 's caregiver and he needs her. Patient asks that I pray for her and her , which I gladly do. I will continue to remain available to patient and family.
[2020-03-31] MEDS ORDERED: CLON1 PO (10:39)
[2020-03-31] MEDS ORDERED: HYDR1TAB94 PO (10:40)
[2020-03-31] MEDS ORDERED: SENN187 PO (10:40)
[2020-03-31] MEDS ORDERED: VISBIOME PROBIOTIC PO (10:41)
--- NOTE | 2020-03-31 15:03 | NUR ---
DISCHARGE PT DISCHARGED TO HOME VIA WC WITH . PT WAITED MORE THAN AN HOUR FOR GRAEMEWILMA TO BRING HOME O2; PT AND FRUSTRATED ABOUT WAITING; THIS NURSE EDUCATE THE PT ABOUT THE WAIT OF HOME O2; I CALLED THE CLIENT RESOURCE SPECIALIST AND LINCARE FOR UPDATE AND LINCARE CAME AROUND 14:25. THIS NURSE DEACCESSED THE MEDIPORT AND FLUSHED WITH HEPARIN 500U AND SALINE. PT MEDICATED PRIOR DISCHARGE. PT HAS HARD SCRIPT FOR NORCO. PT FAXED MEDS TO PHARMACY AND PT EDUCATED ABOUT MEDICATIONS. DINAH PERLA'Kimberly. PT HAS HOME O2 SET TO 3L. DENIES ANY DISTRESS AT MOMENT BESIDES FRUSTRATION. PT WILL FU TO PROVIDER. PACKETS GIVEN
--- NOTE | 2020-03-31 15:07 | NUR ---
PT ACCIDENTALLY PULLED HER MEDIPORT BEFORE I HAD A CHANCE TO DEACCESSED IT. I ACCESSED IT AGAIN AND FLUSHED WITH HEPARIN AND SALINE.
== END 2020-03-31 14:19 | disposition home or self-care (01) | DRG 871 ==
LOC: ER 09:10 → ICUW 12:08 → ICUE 12:08 → PCU 03-28 12:57 → MEDS 03-30 22:12 → ENPENDDIS 03-31 11:39 → MEDS 03-31 14:19
PROVIDERS: Emergency Medicine; Internal Medicine; Internal Medicine Critical Care Medicine; ADMIT Internal Medicine
DX: A40.9 Streptococcal sepsis, unspecified (principal); J96.01 Acute respiratory failure with hypoxia; J15.4 Pneumonia due to other streptococci; I21.A1 Myocardial infarction type 2; K91.2 Postsurgical malabsorption, not elsewhere classified; F31.9 Bipolar disorder, unspecified; R65.20 Severe sepsis without septic shock; I10 Essential (primary) hypertension; E03.9 Hypothyroidism, unspecified; D50.9 Iron deficiency anemia, unspecified; Z66 Do not resuscitate; K58.9 Irritable bowel syndrome, unspecified; F43.10 Post-traumatic stress disorder, unspecified; E78.5 Hyperlipidemia, unspecified; M81.0 Age-related osteoporosis without current pathological fracture; Z20.822 Contact with and (suspected) exposure to COVID-19; I27.20 Pulmonary hypertension, unspecified; R33.8 Other retention of urine; K59.00 Constipation, unspecified; Z79.01 Long term (current) use of anticoagulants; E87.6 Hypokalemia; Z90.3 Acquired absence of stomach [part of]; E83.42 Hypomagnesemia; Z87.891 Personal history of nicotine dependence
CPT/HCPCS: 0241U; 36415; 36600; 51701; 51702; 71045; 71260; 74177; 80048; 80053; 80069; 81001; 82803; 82947; 83605; 83735; 84100; 84145; 84484; 85014; 85018; 85025; 85027; 85379; 85610; 85730; 87040; 87070; 87147; 87205; 87449; 92610; 93005; 93010; 93306; 94640; 94667; 94668; 94760; 94761; 94762; 96361-59; 96365-59; 96375-59; 97110; 97116; 97162; 97530; 99285-25; A9270; C1751; C9113; J0696; J1642; J1650; J1956; J2405; J2550; J3010; J3370; J3475; J3480; J7030; J7050; J7060; Q9967

== ENCOUNTER 2020-05-08 02:11 | Day surgery (SDC) | payer OTHER ==
[~2020-05-08 02:11] MED LIST changes: +SENN187 PO; +VISBIOME PROBIOTIC PO
--- NOTE | 2020-05-08 16:06 | NUR ---
PT DID NOT SHOW FOR HER [address]POINTMENT IN THE [facility] TODAY.
== END 2020-05-08 23:43 | disposition home or self-care (01) ==
LOC: ATC 02:11
DX: Z45.2 Encounter for adjustment and management of vascular access device (principal); D50.9 Iron deficiency anemia, unspecified; E03.9 Hypothyroidism, unspecified; I10 Essential (primary) hypertension; Z87.891 Personal history of nicotine dependence; Z79.899 Other long term (current) drug therapy
CPT/HCPCS: J1642

== ENCOUNTER 2020-07-31 22:52 | Inpatient (IN) | payer OTHER ==
[~2020-07-31] VITALS: Ht 160 cm; Wt 53.9 kg
[2020-07-31 23:25] LABS: Calcium, Ionized (POC) 0.91 mmol/L (1.10-1.46); Chloride (POC) 97 mmol/L (98-108); Creatinine (POC) 0.8 mg/dL (0.6-1.0); Glucose (ISTAT POC) 113 mg/dL (70-99); Hemoglobin (POC) 9.9 g/dL (12.0-16.0); Potassium (POC) 2.4 mmol/L (3.5-5.5); Sodium (POC) 137 mmol/L (135-148); Total CO2 (POC) 22 mmol/L (21-32)
[2020-07-31 23:50] LABS: BASOPHILS ABSOLUTE AUTO 0.01 K/mm3 (0.00-0.23); BASOPHILS PERCENT AUTO 0 % (0-2); EOSINOPHILS ABSOLUTE AUTO 0.01 K/mm3 (0.00-0.68); EOSINOPHILS PERCENT AUTO 0 % (0-6); Hematocrit 30.4 % (33.0-51.0); Hemoglobin 9.7 g/dL (11.5-16.0); IMMATURE GRAN ABSOLUTE AUTO 0.03 K/mm3 (0.00-0.10); IMMATURE GRAN PERCENT AUTO 0 % (0-1); LYMPHOCYTES ABSOLUTE AUTO 0.38 K/mm3 (0.84-5.20); LYMPHOCYTES PERCENT AUTO 4 % (21-46); MONOCYTES ABSOLUTE AUTO 0.53 K/mm3 (0.16-1.47); MONOCYTES PERCENT AUTO 6 % (4-13); Mean Corpuscular HGB 28.3 pg (26.0-34.0); Mean Corpuscular HGB Conc 31.9 g/dL (31.5-36.5); Mean Corpuscular Volume 89 fL (80-100); Mean Platelet Volume 9.7 fL (9.1-12.4); NEUTROPHILS ABSOLUTE AUTO 8.74 K/mm3 (1.96-9.15); NEUTROPHILS PERCENT AUTO 90 % (41-73); Platelet Count 151 K/mm3 (150-400); RDW Coefficient Variation 14.6 % (11.7-14.2); RDW Standard Deviation 47.6 fL (35.1-46.3); Red Blood Cell Count 3.43 M/mm3 (3.80-5.20)
[2020-08-01 00:07] LABS: International Normalized Ratio 0.95; Prothrombin Time Results 10.3 Sec (9.7-11.5)
[2020-08-01 00:14] LABS: Alanine Aminotransfer (ALT/SGP 18 U/L (12-78); Albumin/Globulin Ratio 0.6 (0.8-1.8); Alk Phos 66 U/L (50-136); Anion Gap 5 mmol/L (6-16); Aspartate Aminotrans (AST/SGOT 16 U/L (12-37); Bilirubin, Total 0.3 mg/dL (0.1-1.0); Blood Urea Nitrogen 10 mg/dL (8-24); Bun/Creatinine Ratio 11.7 (12.0-20.0); CO2, Blood 28 mmol/L (21-32); Chloride, Blood 102 mmol/L (98-108); Creatinine, Blood 0.86 mg/dL (0.40-1.00); Globulin, Blood 3.3 g/dL (2.2-4.0); Glomerular Filtration Rate >60 (60-); Glucose, Blood 114 mg/dL (70-99); Magnesium, Blood 1.4 mg/dL (1.6-2.4); Potassium, Blood 2.5 mmol/L (3.5-5.5); Sodium, Blood 135 mmol/L (136-145); Total Protein, Blood 5.3 g/dL (6.4-8.2); Troponin I 0.027 ng/mL (0.000-0.040)
[2020-08-01 00:55] LABS: Source, Urine Clean Catch
[2020-08-01 00:59] LABS: Bilirubin, Urine Neg (Neg); Blood, Urine 5+ (Neg); Glucose Qualitative, Urine Neg (Neg); Ketones, Urine Neg (Neg); Leukocyte Esterase, Urine 1+ (Neg); Nitrite, Urine Pos (Neg); Protein, Urine 3+ (Neg); Urobilinogen, Urine NORM (Normal)
[2020-08-01 01:01] LABS: Appearance, Urine Clear (Clear); Color, Urine Yellow (P-Yellow)
[2020-08-01 01:08] LABS: Bacteria Many /hpf; Squamous Epithelial Cells Few /hpf (Few); White Blood Cells, Urine 25-50 /hpf (0-5)
--- NOTE | 2020-08-01 06:10 | NUR ---
SHFIT SUMMARY PT RESTED SOME SINCE ARRIVAL TO HOSPITAL. ALERT AND ORIENTED, ABLE TO MAKE NEEDS KNOWN. COOPERATIVE [facility] PLAN OF CARE. NSR ON TELE. SATS >90% ON ROOM AIR. MEDIPORT R CHEST WALL, AND RUE MIDLINE FOR IVF AND MEDICATIONS/GTTS. 1 PERSON ASSIST TO BATHROOM/COMMODE. AFEBRILE AT THIS TIME. VSS. PAIN IN ABDOMENT AND NAUSEA - SEE EMAR. CALL LIGHT WITHIN REACH, BED IN LOWEST POSITION. WILL CONTINUE TO MONITOR.
[2020-08-01 13:01] LABS: BASOPHILS ABSOLUTE AUTO 0.01 K/mm3 (0.00-0.23); BASOPHILS PERCENT AUTO 0 % (0-2); EOSINOPHILS ABSOLUTE AUTO 0.01 K/mm3 (0.00-0.68); EOSINOPHILS PERCENT AUTO 0 % (0-6); Hematocrit 28.5 % (33.0-51.0); IMMATURE GRAN ABSOLUTE AUTO 0.04 K/mm3 (0.00-0.10); IMMATURE GRAN PERCENT AUTO 0 % (0-1); LYMPHOCYTES ABSOLUTE AUTO 0.48 K/mm3 (0.84-5.20); LYMPHOCYTES PERCENT AUTO 5 % (21-46); MONOCYTES ABSOLUTE AUTO 0.74 K/mm3 (0.16-1.47); MONOCYTES PERCENT AUTO 8 % (4-13); Mean Corpuscular HGB 28.7 pg (26.0-34.0); Mean Corpuscular HGB Conc 31.6 g/dL (31.5-36.5); Mean Corpuscular Volume 91 fL (80-100); Mean Platelet Volume 9.7 fL (9.1-12.4); NEUTROPHILS ABSOLUTE AUTO 8.34 K/mm3 (1.96-9.15); NEUTROPHILS PERCENT AUTO 87 % (41-73); Platelet Count 143 K/mm3 (150-400); RDW Coefficient Variation 14.7 % (11.7-14.2); RDW Standard Deviation 48.8 fL (35.1-46.3); Red Blood Cell Count 3.14 M/mm3 (3.80-5.20); White Blood Cell Count 9.62 K/mm3 (4.00-11.30)
[2020-08-01 13:21] LABS: Alanine Aminotransfer (ALT/SGP 14 U/L (12-78); Albumin, Blood 2.1 g/dL (3.4-5.0); Albumin/Globulin Ratio 0.7 (0.8-1.8); Alk Phos 65 U/L (50-136); Anion Gap 5 mmol/L (6-16); Aspartate Aminotrans (AST/SGOT 8 U/L (12-37); Bilirubin, Total 0.3 mg/dL (0.1-1.0); Blood Urea Nitrogen 6 mg/dL (8-24); Bun/Creatinine Ratio 7.4 (12.0-20.0); CO2, Blood 28 mmol/L (21-32); Calcium, Blood 7.5 mg/dL (8.5-10.1); Chloride, Blood 105 mmol/L (98-108); Creatinine, Blood 0.81 mg/dL (0.40-1.00); Glomerular Filtration Rate >60 (60-); Glucose, Blood 108 mg/dL (70-99); Potassium, Blood 2.7 mmol/L (3.5-5.5); Sodium, Blood 138 mmol/L (136-145); Total Protein, Blood 5.1 g/dL (6.4-8.2)
[2020-08-01 16:46] LABS: Percent Saturation 6.4 % (15.0-50.0)
--- NOTE | 2020-08-01 18:11 | NUR ---
SHIFT SUMMARY: NO ACUTE CHANGES T/OUT SHIFT. PT CONTINUES A&O, ABLE TO MAKE NEEDS KNOWN, MAINTAINING SATS >92% ON RA, SR ON MONITOR, SBA TO BSC. PT REQUESTING PRN PAIN AND NAUSEA MEDICATION OFTEN. DR KEITH TO ROOM FOR EVAL, STATES NO INTENT TO SCOPE PT, PT PLACED ON FULL LIQUID DIET, AWAITING DINNER TRAY. NO VOMITING OR DIARRHEA NOTED T/OUT THE DAY, PT HAS BEEN AFEBRILE. PT RESTING IN BED AT THIS TIME, CALL LIGHT WITHIN REACH. WILL CONTINUE TO MONITOR AND TREAT ACCORDINGLY UNTIL CHANGE OF SHIFT.
[2020-08-01 22:01] LABS: Adenovirus F 40/41 Not Detected (NOT DETECT); Astrovirus Not Detected (NOT DETECT); Campylobacter Sp Not Detected (NOT DETECT); Cryptosporidium Not Detected (NOT DETECT); Cyclospora Cayetanensis Not Detected (NOT DETECT); E. Coli O157 Not Detected (NOT DETECT); Entamoeba Histolytica Not Detected (NOT DETECT); Enteroaggregative E. coli-EAEC Not Detected (NOT DETECT); Enteropathogenic E. coli-EPEC Not Detected (NOT DETECT); Enterotoxigenic E. coli-ETEC Not Detected (NOT DETECT); Giardia Lamblia Not Detected (NOT DETECT); Norovirus GI/GII Not Detected (NOT DETECT); Plesiomonas Shigelloides Not Detected (NOT DETECT); Rotavirus A Not Detected (NOT DETECT); Salmonella Sp Not Detected (NOT DETECT); Sapovirus Not Detected (NOT DETECT); Shiga Toxin-prod E. coli-STEC Not Detected (NOT DETECT); Shigella/Enteroin E. coli-EIEC Not Detected (NOT DETECT); Vibrio Cholerae Not Detected (NOT DETECT); Vibrio Sp Not Detected (NOT DETECT); Yersinia Enterocolitica Not Detected (NOT DETECT)
[2020-08-02 03:58] LABS: Hematocrit 25.8 % (33.0-51.0); Hemoglobin 8.1 g/dL (11.5-16.0); Mean Corpuscular HGB 28.1 pg (26.0-34.0); Mean Corpuscular HGB Conc 31.4 g/dL (31.5-36.5); Mean Corpuscular Volume 90 fL (80-100); Mean Platelet Volume 9.8 fL (9.1-12.4); Platelet Count 142 K/mm3 (150-400); RDW Coefficient Variation 14.7 % (11.7-14.2); RDW Standard Deviation 48.8 fL (35.1-46.3); Red Blood Cell Count 2.88 M/mm3 (3.80-5.20); White Blood Cell Count 7.72 K/mm3 (4.00-11.30)
[2020-08-02 04:18] LABS: Alanine Aminotransfer (ALT/SGP 15 U/L (12-78); Albumin, Blood 1.9 g/dL (3.4-5.0); Albumin/Globulin Ratio 0.7 (0.8-1.8); Alk Phos 72 U/L (50-136); Anion Gap 5 mmol/L (6-16); Aspartate Aminotrans (AST/SGOT 9 U/L (12-37); Bilirubin, Total 0.4 mg/dL (0.1-1.0); Blood Urea Nitrogen 5 mg/dL (8-24); Bun/Creatinine Ratio 6.7 (12.0-20.0); CO2, Blood 28 mmol/L (21-32); Calcium, Blood 6.8 mg/dL (8.5-10.1); Chloride, Blood 106 mmol/L (98-108); Creatinine, Blood 0.75 mg/dL (0.40-1.00); Globulin, Blood 2.7 g/dL (2.2-4.0); Glomerular Filtration Rate >60 (60-); Glucose, Blood 95 mg/dL (70-99); Magnesium, Blood 1.8 mg/dL (1.6-2.4); Potassium, Blood 2.6 mmol/L (3.5-5.5); Sodium, Blood 139 mmol/L (136-145); Total Protein, Blood 4.6 g/dL (6.4-8.2)
[2020-08-02] MEDS ORDERED: LEVFLO500 PO (11:11)
[2020-08-02] MEDS ORDERED: CEFTRIAXONE1 GM IV (11:18)
--- NOTE | 2020-08-02 14:44 | NUR ---
DISCHARGE PT WAS READY FOR DISCHARGE, PT STATES HER IS AT HOME ON HOSPICE AND NEEDS CARE THIS AFTERNOON AND THERE IS NO ONE ELSE TO BE WITH HIM. PT REQUESTED TO LEAVE [place] TO DR. LIM. PT AGREED TO ALLOW HER POTASSIUM INFUSIONS FINISH AND HAVE BLOOD DRAWN PRIOR TO HER DISCHARGE. PT WAS DISCHARGED AT APPROXIMATELY 1430. PT'S TELE AND POWERGLIDE WERE REMOVED PRIOR TO DISCHARGE. PT HAS A MEDIPORT THAT WAS ACCESSED DURING THIS VISIT, PT WILL RECEIVE OUTPATIENT INFUSIONS FOR ANTIBIOTICS, SO THE PORT HAS REMAINED ACCESSED, IT WAS FLUSHED WITH 20NS AND LOCKED WITH HEPARIN. PT WAS WALKED OUT BY GRABIEL VALDERRAMA.
== END 2020-08-02 14:35 | disposition home or self-care (01) | DRG 391 ==
LOC: ER 22:52 → PCU 08-01 02:10
PROVIDERS: Emergency Medicine; Internal Medicine; ADMIT Internal Medicine
DX: K52.9 Noninfective gastroenteritis and colitis, unspecified (principal); J18.9 Pneumonia, unspecified organism; I42.9 Cardiomyopathy, unspecified; N39.0 Urinary tract infection, site not specified; J44.0 Chronic obstructive pulmonary disease with (acute) lower respiratory infection; R29.6 Repeated falls; E03.9 Hypothyroidism, unspecified; D50.9 Iron deficiency anemia, unspecified; I10 Essential (primary) hypertension; F41.9 Anxiety disorder, unspecified; F43.10 Post-traumatic stress disorder, unspecified; K21.9 Gastro-esophageal reflux disease without esophagitis; I73.9 Peripheral vascular disease, unspecified; E87.6 Hypokalemia; E83.51 Hypocalcemia; E83.42 Hypomagnesemia; E86.0 Dehydration; E78.5 Hyperlipidemia, unspecified; F31.9 Bipolar disorder, unspecified; E86.9 Volume depletion, unspecified; R91.8 Other nonspecific abnormal finding of lung field; D63.8 Anemia in other chronic diseases classified elsewhere; M81.0 Age-related osteoporosis without current pathological fracture; Z90.49 Acquired absence of other specified parts of digestive tract; Z87.11 Personal history of peptic ulcer disease; Z88.6 Allergy status to analgesic agent; Z88.1 Allergy status to other antibiotic agents; Z88.8 Allergy status to other drugs, medicaments and biological substances; Z90.710 Acquired absence of both cervix and uterus; Z86.718 Personal history of other venous thrombosis and embolism; Z90.721 Acquired absence of ovaries, unilateral; Z95.828 Presence of other vascular implants and grafts; Z98.890 Other specified postprocedural states; Z90.89 Acquired absence of other organs; Z85.6 Personal history of leukemia; Z79.899 Other long term (current) drug therapy; Z79.01 Long term (current) use of anticoagulants
CPT/HCPCS: 0097U; 36415; 70450; 70486; 71045; 80047; 80053; 81001; 82330; 82728; 83540; 83550; 83605; 83690; 83735; 84132; 84484; 85014; 85025; 85027; 85610; 85730; 87040; 87077; 87086; 87186; 93005; 93010; 96361; 96365; 96366; 96367; 96375; 99285-25; A9270; C1751; C9113; J0610; J0696; J1642; J2270; J2405; J2550; J3010; J3475; J3480; J7030; J7050; J7120; P9046

== ENCOUNTER 2020-08-09 03:07 | Day surgery (SDC) | payer OTHER ==
[~2020-08-09 03:07] MED LIST changes: +CEFTRIAXONE1 GM IV; +LEVFLO500 PO
== END 2020-08-09 09:12 | disposition home or self-care (01) ==
LOC: ATC 03:07
DX: A41.9 Sepsis, unspecified organism (principal); K52.9 Noninfective gastroenteritis and colitis, unspecified; Z88.1 Allergy status to other antibiotic agents; Z88.6 Allergy status to analgesic agent; Z88.8 Allergy status to other drugs, medicaments and biological substances; I10 Essential (primary) hypertension; E78.5 Hyperlipidemia, unspecified; E03.9 Hypothyroidism, unspecified
CPT/HCPCS: 96523; J1642

== ENCOUNTER 2020-08-30 05:49 | Emergency (ER) | payer OTHER | END 2020-08-30 09:26 | disposition left against medical advice (07) | LOC: ER 05:49 | DX: R07.9 Chest pain, unspecified (principal); R79.89 Other specified abnormal findings of blood chemistry; I10 Essential (primary) hypertension; J44.9 Chronic obstructive pulmonary disease, unspecified; K21.9 Gastro-esophageal reflux disease without esophagitis; E78.5 Hyperlipidemia, unspecified; F17.210 Nicotine dependence, cigarettes, uncomplicated; Z79.899 Other long term (current) drug therapy; Z79.01 Long term (current) use of anticoagulants; Z88.6 Allergy status to analgesic agent; Z88.1 Allergy status to other antibiotic agents; Z88.8 Allergy status to other drugs, medicaments and biological substances ==

== ENCOUNTER 2020-09-01 07:53 | Inpatient (IN) | payer OTHER ==
[~2020-09-01] VITALS: Ht 157.5 cm; Wt 45.8 kg
[2020-09-01 08:37] LABS: BASOPHILS ABSOLUTE AUTO 0.04 K/mm3 (0.00-0.23); BASOPHILS PERCENT AUTO 0 % (0-2); EOSINOPHILS ABSOLUTE AUTO 0.04 K/mm3 (0.00-0.68); EOSINOPHILS PERCENT AUTO 0 % (0-6); Hematocrit 45.7 % (33.0-51.0); Hemoglobin 14.5 g/dL (11.5-16.0); IMMATURE GRAN ABSOLUTE AUTO 0.06 K/mm3 (0.00-0.10); IMMATURE GRAN PERCENT AUTO 0 % (0-1); LYMPHOCYTES ABSOLUTE AUTO 2.33 K/mm3 (0.84-5.20); LYMPHOCYTES PERCENT AUTO 17 % (21-46); MONOCYTES ABSOLUTE AUTO 1.04 K/mm3 (0.16-1.47); MONOCYTES PERCENT AUTO 8 % (4-13); Mean Corpuscular HGB 26.7 pg (26.0-34.0); Mean Corpuscular HGB Conc 31.7 g/dL (31.5-36.5); Mean Corpuscular Volume 84 fL (80-100); Mean Platelet Volume 9.4 fL (9.1-12.4); NEUTROPHILS ABSOLUTE AUTO 9.91 K/mm3 (1.96-9.15); NEUTROPHILS PERCENT AUTO 74 % (41-73); Platelet Count 317 K/mm3 (150-400); RDW Coefficient Variation 13.4 % (11.7-14.2); RDW Standard Deviation 41.5 fL (35.1-46.3); Red Blood Cell Count 5.43 M/mm3 (3.80-5.20); White Blood Cell Count 13.42 K/mm3 (4.00-11.30)
[2020-09-01 08:57] LABS: Troponin I 0.275 ng/mL (0.000-0.040)
[2020-09-01 09:05] LABS: Alanine Aminotransfer (ALT/SGP 23 U/L (12-78); Albumin, Blood 3.1 g/dL (3.4-5.0); Albumin/Globulin Ratio 0.9 (0.8-1.8); Alk Phos 70 U/L (50-136); Anion Gap 7 mmol/L (6-16); Aspartate Aminotrans (AST/SGOT 21 U/L (12-37); Bilirubin, Total 0.9 mg/dL (0.1-1.0); Blood Urea Nitrogen 13 mg/dL (8-24); Bun/Creatinine Ratio 15.8 (12.0-20.0); CO2, Blood 36 mmol/L (21-32); Calcium, Blood 8.4 mg/dL (8.5-10.1); Chloride, Blood 94 mmol/L (98-108); Creatinine, Blood 0.83 mg/dL (0.40-1.00); Globulin, Blood 3.6 g/dL (2.2-4.0); Glomerular Filtration Rate >60 (60-); Glucose, Blood 119 mg/dL (70-99); Potassium, Blood 2.1 mmol/L (3.5-5.5); Sodium, Blood 137 mmol/L (136-145); Total Protein, Blood 6.7 g/dL (6.4-8.2)
[2020-09-01 09:06] LABS: Magnesium, Blood 1.1 mg/dL (1.6-2.4)
[2020-09-01 09:34] LABS: Source, Urine Catheter
[2020-09-01 09:57] LABS: Appearance, Urine Clear (Clear); Bilirubin, Urine Neg (Neg); Blood, Urine 2+ (Neg); Color, Urine Yellow (P-Yellow); Glucose Qualitative, Urine Neg (Neg); Ketones, Urine Neg (Neg); Leukocyte Esterase, Urine Neg (Neg); Nitrite, Urine Neg (Neg); Protein, Urine 2+ (Neg); Urobilinogen, Urine NORM (Normal)
[2020-09-01 10:09] LABS: Bacteria Few /hpf; Squamous Epithelial Cells Many /hpf (Few); White Blood Cells, Urine 0-2 /hpf (0-5)
[2020-09-01 10:10] LABS: Transitional Epithelial Cells Rare /hpf (0-Rare)
[2020-09-01 10:52] LABS: Base Excess Venous 14.9 mmol/L; Bicarbonate Venous 36.5 mmol/L (24.0-30.0); PCO2 Venous 49.4 mmHg (38-42); PO2 Venous 51.8 mmHg (38-42)
[2020-09-01] MEDS ORDERED: FURO40 PO (13:57)
[2020-09-01] MEDS ORDERED: POTA10T PO (13:58)
[2020-09-01] MEDS ORDERED: ALPR.5 PO (13:59)
[2020-09-01] MEDS ORDERED: THERA-D2000 UNIT PO (14:00)
--- NOTE | 2020-09-01 17:11 | NUR ---
SHIFT SUMMARY PATIENT ADMITTED TO THE FLOOR AROUND MID SHIFT. PATIENT ALERT AND ORIENTED UPON ADMISSION. PATIENT CALM AND COOPERATIVE WITH ADMISSION. PATIENT ORIENTED TO THE ROOM. PATIENT IS SBA IN THE ROOM AND TO THE BATHROOM. PATIENT MEDICATED FOR PAIN AND NAUSEA THROUGHOUT THIS SHIFT. PATIENT REMAINS ON IV POTASSIUM THIS AFTERNOON. PATIENT IS ON ROOM AIR. PATIENT UP MULTIPLE TIMES THIS AFTERNOON TO URINATE. PATIENT LYING IN BED WHEN NOT UP TO THE BATHROOM. PATIENT CURRENTLY LYING IN BED RESTING.
[2020-09-01 21:36] LABS: Source, Urine Catheter
[2020-09-01 21:39] LABS: Bilirubin, Urine Neg (Neg); Blood, Urine 2+ (Neg); Glucose Qualitative, Urine Neg (Neg); Ketones, Urine Neg (Neg); Leukocyte Esterase, Urine Neg (Neg); Nitrite, Urine Neg (Neg); Protein, Urine Neg (Neg); Specific Gravity, Urine 1.005 (1.003-1.022); Urobilinogen, Urine NORM (Normal)
[2020-09-01 21:42] LABS: Appearance, Urine Clear (Clear); Color, Urine Yellow (P-Yellow)
[2020-09-01 21:47] LABS: Bacteria Rare /hpf; Red Blood Cells, Urine 0-2 /hpf (0-2); Squamous Epithelial Cells Few /hpf (Few); White Blood Cells, Urine Rare /hpf (0-5)
[2020-09-01 21:59] LABS: U Amphetamine Screen Not Detected; U Barbituate Screen Not Detected; U Benzodiazapine Screen DETECTED; U Buprenorphine Screen Not Detected; U Cannabinoids Screen Not Detected; U Cocaine Screen Not Detected; U Methadone Screen Not Detected; U Methamphetamine Screen Not Detected; U Opiates Screen DETECTED; U Oxycodone Screen Not Detected; U Phencyclidine Screen Not Detected; U Propoxyphene Screen Not Detected
[2020-09-02 04:46] LABS: BASOPHILS ABSOLUTE AUTO 0.03 K/mm3 (0.00-0.23); BASOPHILS PERCENT AUTO 0 % (0-2); EOSINOPHILS ABSOLUTE AUTO 0.16 K/mm3 (0.00-0.68); EOSINOPHILS PERCENT AUTO 2 % (0-6); Hematocrit 37.6 % (33.0-51.0); Hemoglobin 11.7 g/dL (11.5-16.0); IMMATURE GRAN ABSOLUTE AUTO 0.02 K/mm3 (0.00-0.10); IMMATURE GRAN PERCENT AUTO 0 % (0-1); LYMPHOCYTES PERCENT AUTO 27 % (21-46); MONOCYTES ABSOLUTE AUTO 0.47 K/mm3 (0.16-1.47); MONOCYTES PERCENT AUTO 6 % (4-13); Mean Corpuscular HGB 26.7 pg (26.0-34.0); Mean Corpuscular HGB Conc 31.1 g/dL (31.5-36.5); Mean Corpuscular Volume 86 fL (80-100); Mean Platelet Volume 9.8 fL (9.1-12.4); NEUTROPHILS ABSOLUTE AUTO 4.91 K/mm3 (1.96-9.15); NEUTROPHILS PERCENT AUTO 64 % (41-73); Platelet Count 226 K/mm3 (150-400); RDW Coefficient Variation 13.4 % (11.7-14.2); RDW Standard Deviation 42.3 fL (35.1-46.3); Red Blood Cell Count 4.39 M/mm3 (3.80-5.20); White Blood Cell Count 7.69 K/mm3 (4.00-11.30)
[2020-09-02 05:08] LABS: Alanine Aminotransfer (ALT/SGP 18 U/L (12-78); Albumin, Blood 2.6 g/dL (3.4-5.0); Albumin/Globulin Ratio 0.9 (0.8-1.8); Alk Phos 51 U/L (50-136); Anion Gap 5 mmol/L (6-16); Aspartate Aminotrans (AST/SGOT 11 U/L (12-37); Bilirubin, Total 0.5 mg/dL (0.1-1.0); Blood Urea Nitrogen 13 mg/dL (8-24); CO2, Blood 33 mmol/L (21-32); Calcium, Blood 7.4 mg/dL (8.5-10.1); Chloride, Blood 101 mmol/L (98-108); Creatinine, Blood 0.87 mg/dL (0.40-1.00); Globulin, Blood 2.8 g/dL (2.2-4.0); Glomerular Filtration Rate >60 (60-); Glucose, Blood 87 mg/dL (70-99); Magnesium, Blood 1.7 mg/dL (1.6-2.4); Potassium, Blood 2.8 mmol/L (3.5-5.5); Sodium, Blood 139 mmol/L (136-145); Total Protein, Blood 5.4 g/dL (6.4-8.2)
--- NOTE | 2020-09-02 06:16 | NUR ---
SHIFT SUMMARY PATIENT ALERT AND ORIENTED. MEDICATED NEEDED PER EMAR FOR PAIN AND NAUSEA. NO COMPLAINTS OF SHORTNESS OF BREATH. NO ACUTE ISSUES NOTED OVERNIGHT. MEDIPORT PATENT AND INFUSING. BED IN LOWEST POSITION WITH WHEELS LOCKED AND ALARM ON. CALL LIGHT WITHIN REACH REPORT GIVEN TO ONCOMING RN.
--- NOTE | 2020-09-02 10:39 | NUR ---
PATIENT XFR: PATIENT XFR TO PCU-05 R/T NEED FOR HIGHER LEVEL OF CARE. REPORT GIVEN TO NELLI REED. 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
[2020-09-02 10:42] LABS: SARS-Cov-2 (COVID-19) PCR, MMC NEGATIVE (NEGATIVE)
--- NOTE | 2020-09-02 12:34 | NUR ---
PT TRANSFER FROM MEDICAL FLOOR THIS AM. ALERT AND ORIENTED X4. AT TIMES HARD TO UNDERSTAND,PT SPEAKS VERY FAST. NEURO WNL. ON ROOM AIR SATING ABOVE 95%. TELE SHOWING SINUS. VITAL SIGNS STABLE. BOWEL TONES PRESENT. MEDIPORT TO RIGHT CHEST, WITH POTASSIUM PHOSPHATE INFUSING. PLAN FOR ANGIO TODAY. CALL LIGHT IN REACH. ORIENTED TO ROOM AND UNIT. FALL PREVENTION IN PLACE. USING WALKER WITH ONE PERSON ASSIST TO BATHROOM. TAKEN TO HEART CENTER VIA BED.
--- NOTE | 2020-09-02 13:49 | NUR ---
PT BACK FROM ANGIOGRAM. RIGHT RADIAL ATTEMPTED SIGHT WITH TR BAND THAT HAS 8 ML. RIGHT RADIAL WNL, SOFT AND NONTENDER. NO SIGNS OF BLEEDING. RIGHT GROIN SIGHT WITH ANGIO SEAL. SCANT AMOUNT OF DRAINAGE ON DRESSING. NO SIGNS OF BLEEDING. SIGHT REMAINS SOFT AND NON TENDER. ARM BOARD IN PLACE AND PT LAYING FLAT IN BED. POST VITALS BEING TAKEN. PT COMPLAINS OF LEFT FLANK PAIN, MEDICATED PER EMAR. SPOKE WITH DR. SIERRA. HOLDING CLONIDINE AT THIS TIME DUE TO BP. QT MEASURED AT THIS TIME AND 0.52. ORDERS TO HOLD ZOFRAN AND PHENERGAN AT THIS TIME DUE TO PROLONGED QT. PT SLEEPING AT THIS TIME. WILL CONTINUE TO MONITOR.
--- NOTE | 2020-09-02 14:55 | NUR ---
SPOKE WITH DR. CAMPBELL REGARDING PATIENT BP. NEW ORDERS FOR 1L BOLUS.
[2020-09-02 16:14] LABS: BASOPHILS ABSOLUTE AUTO 0.02 K/mm3 (0.00-0.23); BASOPHILS PERCENT AUTO 0 % (0-2); EOSINOPHILS ABSOLUTE AUTO 0.16 K/mm3 (0.00-0.68); EOSINOPHILS PERCENT AUTO 2 % (0-6); Hematocrit 32.9 % (33.0-51.0); IMMATURE GRAN ABSOLUTE AUTO 0.01 K/mm3 (0.00-0.10); IMMATURE GRAN PERCENT AUTO 0 % (0-1); LYMPHOCYTES ABSOLUTE AUTO 2.12 K/mm3 (0.84-5.20); LYMPHOCYTES PERCENT AUTO 30 % (21-46); MONOCYTES ABSOLUTE AUTO 0.39 K/mm3 (0.16-1.47); MONOCYTES PERCENT AUTO 6 % (4-13); Mean Corpuscular HGB 26.5 pg (26.0-34.0); Mean Corpuscular HGB Conc 30.4 g/dL (31.5-36.5); Mean Corpuscular Volume 87 fL (80-100); Mean Platelet Volume 9.7 fL (9.1-12.4); NEUTROPHILS ABSOLUTE AUTO 4.38 K/mm3 (1.96-9.15); NEUTROPHILS PERCENT AUTO 62 % (41-73); Platelet Count 224 K/mm3 (150-400); RDW Coefficient Variation 13.5 % (11.7-14.2); RDW Standard Deviation 43.2 fL (35.1-46.3); Red Blood Cell Count 3.78 M/mm3 (3.80-5.20); White Blood Cell Count 7.08 K/mm3 (4.00-11.30)
--- NOTE | 2020-09-02 17:18 | NUR ---
SPOKE WITH DR. CAMPBELL ABOUT PATIENT BP. NEW ORDERS FOR ADDITIONAL 1L BOLUS, REPEAT CBC IN 4 HOURS, AND CT OF ABDOMEN AND PELVIS. ORDERS PLACED. SECOND 1 L BOLUS INFUSING AT THIS TIME. RIGHT RADIAL SIGHT REMAINS SOFT AND NONTENDER. TR BAND REMOVED AND TEGADERM IN PLACE. NO SIGNS OF BLEEDING. ARM BOARD IN PLACE. RIGHT GROIN SIGHT REMAINS UNCHANGED. SOFT AND NONTENDER. DRAINAGE UNDER DRESSING REMAINS UNCHANGED. PATIENT LAYING FLAT WITH LEGS STRAIGHT. HEAD OF BED ELEVATED TO 15 DEGREES AT THIS TIME. PT COMPLAINING OF PAIN, DUE TO LOW BP UNABLE TO GIVE PAIN MEDS AT THIS TIME. WILL CONTINUE TO REASSESS. PATIENT SISTER AT BEDSIDE. CALL LIGHT IN REACH. WILL CONTINUE TO MONITOR.
--- NOTE | 2020-09-02 19:27 | NUR ---
SHIFT SUMMARY: 2ND LITER BOLUS COMPLETED. BP TRENDING IN RIGHT DIRECTION. PT COMPLAINS OF PAIN, BUT WANTS TO HOLD OFF ON PAIN MEDS TILL BP IS MORE STABLE. EDUCATION PROVIDED ON PAIN MEDS AND BLOOD PRESSURE. PT OKAY WITH WAITING ON PAIN MEDS AT THIS TIME. CT RESULTS WNL. WILL CONTINUE TO MONITOR BP AND CBC LAB RESULTS. RIGHT RADIAL AND RIGHT GROIN SIGHT REMAIN UNCHANGED, SEE PREVIOUS NOTES. PT LAYING FLAT WITH HOB ELEVATED 15 DEGREES. TELE REMAINS SINUS WITH HR 70-80'S AND QT 0.53 AT THIS TIME. NS INFUSING AT 100 ML/HR INTO MEDIPORT. XERALTO HELD PER ORDERS. CALL LIGHT IN REACH. REPORTED OFF TO ONCOMING RN.
[2020-09-02 22:01] LABS: BASOPHILS ABSOLUTE AUTO 0.03 K/mm3 (0.00-0.23); BASOPHILS PERCENT AUTO 0 % (0-2); EOSINOPHILS ABSOLUTE AUTO 0.24 K/mm3 (0.00-0.68); EOSINOPHILS PERCENT AUTO 4 % (0-6); Hematocrit 31.3 % (33.0-51.0); Hemoglobin 9.6 g/dL (11.5-16.0); IMMATURE GRAN ABSOLUTE AUTO 0.03 K/mm3 (0.00-0.10); IMMATURE GRAN PERCENT AUTO 0 % (0-1); LYMPHOCYTES ABSOLUTE AUTO 1.95 K/mm3 (0.84-5.20); LYMPHOCYTES PERCENT AUTO 29 % (21-46); MONOCYTES ABSOLUTE AUTO 0.42 K/mm3 (0.16-1.47); MONOCYTES PERCENT AUTO 6 % (4-13); Mean Corpuscular HGB 26.7 pg (26.0-34.0); Mean Corpuscular HGB Conc 30.7 g/dL (31.5-36.5); Mean Corpuscular Volume 87 fL (80-100); Mean Platelet Volume 9.4 fL (9.1-12.4); NEUTROPHILS ABSOLUTE AUTO 4.18 K/mm3 (1.96-9.15); NEUTROPHILS PERCENT AUTO 61 % (41-73); Platelet Count 204 K/mm3 (150-400); RDW Coefficient Variation 13.4 % (11.7-14.2); RDW Standard Deviation 42.8 fL (35.1-46.3); Red Blood Cell Count 3.59 M/mm3 (3.80-5.20); White Blood Cell Count 6.85 K/mm3 (4.00-11.30)
--- NOTE | 2020-09-02 23:28 | NUR ---
CALL TO HOSPITALIST THIS RN CALLS [employer] TO REQUEST ADJUSTMENT TO PAIN MEDICATION DOSING D/T CONCERN FOR HYPOTENSION. TELEPHONE ORDER TO EDIT ORDER TO 12.5 MCG-50-MCG ADJUSTED FROM 25-50 MCG.
[2020-09-03 03:36] LABS: BASOPHILS ABSOLUTE AUTO 0.04 K/mm3 (0.00-0.23); BASOPHILS PERCENT AUTO 0 % (0-2); EOSINOPHILS ABSOLUTE AUTO 0.37 K/mm3 (0.00-0.68); EOSINOPHILS PERCENT AUTO 4 % (0-6); Hematocrit 31.7 % (33.0-51.0); Hemoglobin 9.9 g/dL (11.5-16.0); IMMATURE GRAN ABSOLUTE AUTO 0.04 K/mm3 (0.00-0.10); IMMATURE GRAN PERCENT AUTO 0 % (0-1); LYMPHOCYTES PERCENT AUTO 22 % (21-46); MONOCYTES ABSOLUTE AUTO 0.55 K/mm3 (0.16-1.47); MONOCYTES PERCENT AUTO 5 % (4-13); Mean Corpuscular HGB 27.1 pg (26.0-34.0); Mean Corpuscular HGB Conc 31.2 g/dL (31.5-36.5); Mean Corpuscular Volume 87 fL (80-100); Mean Platelet Volume 9.4 fL (9.1-12.4); NEUTROPHILS ABSOLUTE AUTO 6.97 K/mm3 (1.96-9.15); NEUTROPHILS PERCENT AUTO 69 % (41-73); Platelet Count 288 K/mm3 (150-400); RDW Coefficient Variation 13.3 % (11.7-14.2); RDW Standard Deviation 42.7 fL (35.1-46.3); Red Blood Cell Count 3.65 M/mm3 (3.80-5.20); White Blood Cell Count 10.17 K/mm3 (4.00-11.30)
[2020-09-03 04:03] LABS: Alanine Aminotransfer (ALT/SGP 15 U/L (12-78); Albumin, Blood 2.5 g/dL (3.4-5.0); Alk Phos 47 U/L (50-136); Anion Gap 5 mmol/L (6-16); Aspartate Aminotrans (AST/SGOT 17 U/L (12-37); Bilirubin, Total 0.3 mg/dL (0.1-1.0); Blood Urea Nitrogen 10 mg/dL (8-24); CO2, Blood 25 mmol/L (21-32); Calcium, Blood 6.3 mg/dL (8.5-10.1); Chloride, Blood 110 mmol/L (98-108); Creatinine, Blood 0.83 mg/dL (0.40-1.00); Globulin, Blood 2.5 g/dL (2.2-4.0); Glomerular Filtration Rate >60 (60-); Glucose, Blood 100 mg/dL (70-99); Magnesium, Blood 1.4 mg/dL (1.6-2.4); Sodium, Blood 140 mmol/L (136-145)
--- NOTE | 2020-09-03 04:28 | NUR ---
PT UPDATE PT CONTINUES TO C/O DRY HEAVING. THIS RN TO CALL HOSPITALIST TO DISCUSS HOLD ON ANTIEMETICS AND NO RELIEF FOLLOWING ALTERNATIVE MEASURES.
--- NOTE | 2020-09-03 04:49 | NUR ---
PT UPDATE PT NOT DRY HEAVING AT THIS TIME, REQUESTS BEDPAN FOR POSSIBLE BM. THIS RN ASSISTS PT. PT TO CALL WHEN SHE'S DONE ON BEDPAN. THIS RN MEASURES QTC, APPEARS 0.492. PER DARIAN IN TELE, APPEARS 0.44, IMPROVED FROM 0.53 EARLIER IN SHIFT.
--- NOTE | 2020-09-03 05:10 | NUR ---
CALL TO DR CASON THIS RN SPEAKS WITH DR CASON, DR CASON GIVES OKAY TO GIVE DOSE OF PHENERGAN NOW FOR DRY HEAVING/NAUSEA.
--- NOTE | 2020-09-03 05:59 | NUR ---
CALL TO PROVIDER THIS RN CALL DR CASON BACK TO UPDATE ON LABS. ORDERS FOR CALCIUM, K PHOS, AND MAG PLACED PER TELEPHONE ORDER TO REPLACE ELECTROLYTES. PER OKSANA IN PHARMACY RECCOMENDED PT BE GIVEN CALCIUM, MAG, AND K PHOS IN THAT ORDER DUE TO LENGTH OF INFUSIONS.
[2020-09-03 06:58] LABS: Campylobacter Sp Not Detected (NOT DETECT)
[2020-09-03 06:59] LABS: Adenovirus F 40/41 Not Detected (NOT DETECT); Astrovirus Not Detected (NOT DETECT); Cryptosporidium Not Detected (NOT DETECT); Cyclospora Cayetanensis Not Detected (NOT DETECT); E. Coli O157 Not Detected (NOT DETECT); Entamoeba Histolytica Not Detected (NOT DETECT); Enteroaggregative E. coli-EAEC Not Detected (NOT DETECT); Enteropathogenic E. coli-EPEC Not Detected (NOT DETECT); Enterotoxigenic E. coli-ETEC Not Detected (NOT DETECT); Giardia Lamblia Not Detected (NOT DETECT); Norovirus GI/GII Not Detected (NOT DETECT); Plesiomonas Shigelloides Not Detected (NOT DETECT); Rotavirus A Not Detected (NOT DETECT); Salmonella Sp Not Detected (NOT DETECT); Sapovirus Not Detected (NOT DETECT); Shiga Toxin-prod E. coli-STEC Not Detected (NOT DETECT); Shigella/Enteroin E. coli-EIEC Not Detected (NOT DETECT); Vibrio Cholerae Not Detected (NOT DETECT); Vibrio Sp Not Detected (NOT DETECT); Yersinia Enterocolitica Not Detected (NOT DETECT)
--- NOTE | 2020-09-03 08:20 | NUR ---
SHIFT SUMMARY PT AOX4, BREATHING EVEN AND UNLABORED, PER TELE PT SINUS 70'S-90'S T/O SHIFT. QTC PROLONGED AT 0.52-0.53 AT START OF SHIFT, DECREASED TO 0.44-0.49. PT HAD SEVERAL HOURS OF NAUSEA W/DRY HEAVING AND SOME MUCUS/EMESIS FOLLOWING CLOSELY AFTER ADMIN DOSE OF FENTANYL FOR PT'S CP/ABD PAIN. PER ORDER FROM DR SIERRA TO HOLD PHENERGAN/ZOFRAN D/T PROLONGING AGENTS, ALTERNATIVE MEASURES FOR NAUSEA WERE ATTEMPTED. THIS RN CALLED DR CASON TO DISCUSS NEED FOR NAUSEA MEDICATION. PT GIVEN ONE DOSE OF PHENERGAN PER PRN ORDER AFTER DR CASON GAVE OKAY. PT CONTIUES TO C/O SAME CP IN L SIDE RIBS, STATED SOME RADIATION TO R SIDE RIBS. SATS 96-99% ON RA T/O SHIFT. BREATHING SHALLOW AND PERIODS OF TACHYPNEA W/N/V. PT UNABLE TO TOLERATE PO MEDS D/T N/V. DR CASON CALLED AND NOTIFIED OF ABNORMAL LABS AND ORDERS FOR REPLACEMENTS PLACED. PT FREQUENTLY REQUESTS MEDICATION FOR PAIN, NAUSEA, ANXIETY, VERBALIZES UNDERSTANDING OF REASONING BEHIND HOLDING SOME OF THESE MEDICATIONS AT THIS TIME. PT HAD FORMED BM IN NIGHT. SENT TO LAB AFTER THIS RN CALLED TO CONFIRM ABILITY TO RUN TEST ON FORMED STOOL. LAB IS UNSURE, ASKS THIS RN TO SEND STOOL REGARDLESS. PT FREQUENTLY SITS UP AT EDGE OF BED DESPITE THIS RN GIVING PRECAUTIONS AND DIRECTIONS REGARDING R GROIN SITE AND R RADIAL SITE. SITES ARE SOFT, NO CHANGE OTHER THAN SOME INCREASED BRUISING TO R RADIAL SITE. PT STATES SHE IS ANXIOUS THIS AM D/T NEEDING TO ARRANGE HUSBANDS TOMORROW. NS CONTINUES INFUSING PER ORDER.
--- NOTE | 2020-09-03 13:20 | NUR ---
Pt is known to this parts data writer from previous hospital stays. Offered supportive visit and therapeutic listening. Pt reports recently losing her spouse and this RN offered condolences. Continued therapeutic listening as Pt reports unsure what to do at this point in her life. Encourage Pt to allow time for her to adjust to all the recent events that have occured. Discussed discussing with MD if cardiac rehab would be appropriate for her. Continued therapeutic listening and answered questions. Pt expresses appreciation of visit and reports no other concerns at this time. Palliative Care will remain available.
--- NOTE | 2020-09-03 18:22 | NUR ---
SHIFT SUMMARY PATIENT ALERT AND ORIENTED THROUGHOUT SHIFT. TOLERATING REGULAR DIET AND FLUIDS. NPO AFTER MIDNIGHT FOR RETURN TO [facility] TOMORROW 09/04/20. RIGHT GROIN SITE AND RIGHT RADIAL WNL. MEDICATED NEEDED FOR PAIN, NAUSEA, AND ANXIETY. BP HIGH TODAY, CARDIOLOGY AWARE.
--- NOTE | 2020-09-03 19:08 | NUR ---
NAUSEA MEDS PER REPORT FROM ASSISTANT INFANT TEACHER RN, NAUSEA MEDS WERE BEING HELD DUE TO CONCER FOR QT PROLONGATION. PATIENT DURING NIGHT WAS EXTREMELY NAUSEATED. NIGHT RN OBTAINED VERBAL OKAY FROM DR CASON TO GIVE NAUSEA MEDS. NAUSEA STABILIZED DURING MORNING. DR SIERRA WROTE IN HIS NOTE TO CONTINUE HOLDING NAUSEA MEDS. NO FURTHER NAUSEA MEDS GIVEN THIS AFTERNOON. THIS REPORT WAS GIVEN TO ASSISTANT INFANT TEACHER RN.
[2020-09-04 05:10] LABS: BASOPHILS ABSOLUTE AUTO 0.02 K/mm3 (0.00-0.23); BASOPHILS PERCENT AUTO 0 % (0-2); EOSINOPHILS ABSOLUTE AUTO 0.25 K/mm3 (0.00-0.68); EOSINOPHILS PERCENT AUTO 3 % (0-6); Hematocrit 28.8 % (33.0-51.0); Hemoglobin 9.3 g/dL (11.5-16.0); IMMATURE GRAN ABSOLUTE AUTO 0.03 K/mm3 (0.00-0.10); IMMATURE GRAN PERCENT AUTO 0 % (0-1); LYMPHOCYTES ABSOLUTE AUTO 1.78 K/mm3 (0.84-5.20); LYMPHOCYTES PERCENT AUTO 24 % (21-46); MONOCYTES PERCENT AUTO 7 % (4-13); Mean Corpuscular HGB 27.7 pg (26.0-34.0); Mean Corpuscular HGB Conc 32.3 g/dL (31.5-36.5); Mean Corpuscular Volume 86 fL (80-100); Mean Platelet Volume 9.9 fL (9.1-12.4); NEUTROPHILS ABSOLUTE AUTO 4.91 K/mm3 (1.96-9.15); NEUTROPHILS PERCENT AUTO 66 % (41-73); Platelet Count 251 K/mm3 (150-400); RDW Coefficient Variation 13.3 % (11.7-14.2); RDW Standard Deviation 41.1 fL (35.1-46.3); Red Blood Cell Count 3.36 M/mm3 (3.80-5.20); White Blood Cell Count 7.49 K/mm3 (4.00-11.30)
[2020-09-04 05:33] LABS: Alanine Aminotransfer (ALT/SGP 13 U/L (12-78); Albumin, Blood 2.3 g/dL (3.4-5.0); Albumin/Globulin Ratio 0.9 (0.8-1.8); Alk Phos 44 U/L (50-136); Anion Gap 5 mmol/L (6-16); Aspartate Aminotrans (AST/SGOT 9 U/L (12-37); Bilirubin, Total 0.4 mg/dL (0.1-1.0); Blood Urea Nitrogen 6 mg/dL (8-24); Bun/Creatinine Ratio 7.4 (12.0-20.0); CO2, Blood 27 mmol/L (21-32); Calcium, Blood 7.5 mg/dL (8.5-10.1); Chloride, Blood 110 mmol/L (98-108); Creatinine, Blood 0.82 mg/dL (0.40-1.00); Globulin, Blood 2.5 g/dL (2.2-4.0); Glomerular Filtration Rate >60 (60-); Glucose, Blood 94 mg/dL (70-99); Magnesium, Blood 1.8 mg/dL (1.6-2.4); Phosphorus, Blood 3.1 mg/dL (2.5-4.9); Sodium, Blood 142 mmol/L (136-145); Total Protein, Blood 4.8 g/dL (6.4-8.2)
--- NOTE | 2020-09-04 06:44 | NUR ---
SUMMARY PT NPO PENDING PROCEDURE THIS AM.
--- NOTE | 2020-09-04 11:39 | NUR ---
PT ALERT AND ORIENTED X4. HARD TO UNDERSTAND SPEECH AT TIMES. PUPILS EQUAL ROUND AND REACTIVE. ON ROOM AIR SATING HIGH 90'S. DENIES SOB. TELE SHOWING SINUS WITH HR 70'S. RECENT QT MEASUREMENT 0.57. DENIES CHEST PAIN/PRESSURE. ELEVATED BP. PATIENT ANXIOUS ABOUT ANGIOGRAM AND ANXIOUS TO GET HOME AND DEAL WITH ARRANGEMENTS FOR WHO RECENTLY PASSED. ANXIETY TREATED WITH PRN MEDICATIONS. WILL CONTINUE TO MONITOR BP. BOWEL TONES PRESENT. COMPLAINS OF NAUSEA THIS AM. DR. SIERRA, OKAYED GIVING PHENERGAN, ONE DOSE GIVEN THIS AM. NAUSEA RELEIVED BUT NOT SUBSIDED. BED BATH GIVEN. CALL LIGHT IN REACH. NPO FOR ANGIOGRAM. WILL CONTINUE TO MONITOR.
--- NOTE | 2020-09-04 11:53 | NUR ---
RIGHT RADIAL SIGHT WNL, NO SIGNS OF BLEEDING. SOFT AND NON TENDER. MINIMAL BRUISING THAT HAS REMAINED UNCHANGED. RIGHT GROIN SIGHT SOFT NONTENDER AND SCANT DRAINAGE, REMAINS UNCHANGED.
--- NOTE | 2020-09-04 16:21 | NUR ---
PT TAKEN TO HEART CATH.
--- NOTE | 2020-09-04 18:38 | NUR ---
Visit made to family members, Mana and Stephanie, in ICU waiting area, after they had met with Drs and learned of pt's . They were appropriate tearful and expressive of grief. Mana spoke of pt's stressors that escalated in recent weeks with Mary's 's 1-2 weeks ago, desktop support consultant chronic health issues and financial concerns. Mana gives permission for us to contact Alessandra's mortuary and to give them her contact information listed on pt's face sheet/medical record. She states they are handling the remains for her also. She will contact Mary's two daughters and son. She also has the Dr's number in case her children have any questions. Mana is the next of kin listed by Mary on admission. real estate specialist has spoken to pt's step-randy, Danna, who is on her way in. Quoc do not wish to return to pt's room for viewing or saying goodbye. Her personal belongings were gathered up and provided to family. They had already been bagged in anticipation of pt going to ICU after her angiogram. Drawers and cupboards checked by me and PCU staff, Latasha and belongings taken to Mana and Stephanie. Additional support and thanks for their care of pt, her children and her effects given. concerns
--- NOTE | 2020-09-04 19:47 | NUR ---
FINAL DISCHARGE NOTE: Staff notified of pt code while in . Primary RN and CN provided code team with family contact information as listed in computer and on white board in room. Wet Cotton Feeder, intesivist, ICU and HC RNs, and RT staff in HC procedure room during code. See code sheet for full details. TOD pronounced at 1748. Pts friend, Mana, originally listed as "sister", was noted to be next of kin per medical record. Mana notified and was asked to come to facility. Wet Cotton Feeder met with Mana and provided an update regarding pt's case and passing. Palliative care met with Mana as well, see note. Lamberto Jason, not listed on pts medical record though name/number written on pt's whiteboard, notified via telephone by rangeland management specialist. Yoshi randall came to hospital and met with Mana in ICU waiting room to discuss further decisions and arrangements. Pt transported back to [facility] from to await final discharge and possible donor arrangements.
--- NOTE | 2020-09-04 23:28 | NUR ---
DISCHARGE RAZ MEREDITH FROM [facility] PICKED UP PT AT [phone]. MR HARPER NOTIFIED THAT PT IS A PROTENTIAL EYE DONOR.
== END 2020-09-04 23:28 | DRG 247 ==
LOC: ER 07:53 → MEDS 07:54 → PCU 09-02 09:25
PROVIDERS: Family Medicine; Internal Medicine Cardiovascular Disease; Nurse Practitioner Acute Care; Physician Assistant; ADMIT Internal Medicine
PROC: 5A12012 Performance of Cardiac Output, Single, Manual (ICD-10-PCS; 2020-09-02)
PROC: 0W9D3ZZ Drainage of Pericardial Cavity, Percutaneous Approach (ICD-10-PCS; 2020-09-02)
PROC: 0BH18EZ Insertion of Endotracheal Airway into Trachea, Via Natural or Artificial Opening Endoscopic (ICD-10-PCS; 2020-09-02)
PROC: 02H633Z Insertion of Infusion Device into Right Atrium, Percutaneous Approach (ICD-10-PCS; 2020-09-02)
PROC: 027036Z Dilation of Coronary Artery, One Artery with Three Drug-eluting Intraluminal Devices, Percutaneous Approach (ICD-10-PCS; principal; 2020-09-04)
DX: I21.4 Non-ST elevation (NSTEMI) myocardial infarction (principal); R65.10 Systemic inflammatory response syndrome (SIRS) of non-infectious origin without acute organ dysfunction; I42.9 Cardiomyopathy, unspecified; Z68.1 Body mass index [BMI] 19.9 or less, adult; E46 Unspecified protein-calorie malnutrition; K90.9 Intestinal malabsorption, unspecified; I31.4 Cardiac tamponade; I97.51 Accidental puncture and laceration of a circulatory system organ or structure during a circulatory system procedure; Z66 Do not resuscitate; I46.2 Cardiac arrest due to underlying cardiac condition; E03.9 Hypothyroidism, unspecified; D50.9 Iron deficiency anemia, unspecified; I10 Essential (primary) hypertension; K58.9 Irritable bowel syndrome, unspecified; F43.10 Post-traumatic stress disorder, unspecified; F41.1 Generalized anxiety disorder; F32.9 Major depressive disorder, single episode, unspecified; F17.210 Nicotine dependence, cigarettes, uncomplicated; J44.9 Chronic obstructive pulmonary disease, unspecified; K31.84 Gastroparesis; K21.9 Gastro-esophageal reflux disease without esophagitis; E78.5 Hyperlipidemia, unspecified; I73.9 Peripheral vascular disease, unspecified; E87.6 Hypokalemia; E83.42 Hypomagnesemia; R51.9 Headache, unspecified; M81.0 Age-related osteoporosis without current pathological fracture; I27.20 Pulmonary hypertension, unspecified; Z71.6 Tobacco abuse counseling; Z86.718 Personal history of other venous thrombosis and embolism; Z90.49 Acquired absence of other specified parts of digestive tract; Z90.710 Acquired absence of both cervix and uterus; Z90.721 Acquired absence of ovaries, unilateral; Z90.89 Acquired absence of other organs; Z98.890 Other specified postprocedural states; Z88.8 Allergy status to other drugs, medicaments and biological substances; Z79.2 Long term (current) use of antibiotics; Z79.01 Long term (current) use of anticoagulants; Z79.899 Other long term (current) drug therapy
CPT/HCPCS: 0097U; 31500; 33016; 36415; 36430; 36556; 51798; 71046; 74177; 76937; 80053; 81001; 82803; 83605; 83690; 83735; 83880; 84100; 84132; 84145; 84443; 84484; 85025; 85347; 86141; 86850; 86900; 86901; 87040; 92950; 93005; 93010; 93306; 93308; 93454; 93571; 94760; 96365; 96366; 96368; 96375; 96376; 99152; 99153; 99285-25; A9270; C1725; C1729; C1769; C1874; C1887; C1894; C9113; C9600; G0378; J0330; J0461; J0610; J1170; J1265; J1644; J2060; J2250; J2370; J2405; J2550; J3010; J3475; J3480; J7030; J7040; J7050; J7060; P9016; Q9967; U0004